=== PATIENT | female | born 2000 | race Caucasian/White ===

== ENCOUNTER 2024-07-11 14:32 | Outpatient (CLI) | payer BC, OTHER, SELFPAY ==
--- NOTE | 2024-07-11 14:45 | US_ITS ---
PROCEDURE: US TRANSVAGINAL CLINICAL INDICATION: Heavy Menstrual period bleeding COMPARISON: No exams were available for comparison FINDINGS: Transvaginal sonographic images of the pelvis were obtained. UTERUS: 8.2cm x 6.0cmx 3.8 cm anteverted with a combined endometrial thickness of 7.0 mm. A scar is seen. There are several small echogenic areas within the endometrium, lower uterine segment and cervix. LEFT OVARY: [id number] with a volume of 1.4ml. There are several small peripheral follicles. RIGHT OVARY: 2cmx [id number] with a volume of 10.7ml. There are several small peripheral follicles. There is a dominant follicle measuring 1.7 cm. Both ovaries are seen and appear normal. Doppler flow to both ovaries are seen. There is trace fluid in the cul-de-sac. IMPRESSION: 1. Anteverted uterus normal in shape and size. The endometrium is normal and measures 7 mm. 2. There are multiple small echogenic areas within the endometrium and in the cervix. Etiology of this is unclear. 3. Both ovaries are seen and appear normal. They both have multiple small peripheral follicles. The right ovary has a dominant follicle measuring 1.7 cm. 4. There is trace fluid in the cul-de-sac Dictated by: Anselmo Bower MD 07/11/2024 17:33 Anselmo Bower MD in OV 07/11/2024 17:33
== END 2024-07-11 23:59 | disposition home or self-care (01) ==
LOC: RAD 14:34
PROVIDERS: PCP Pediatrics; Visit Provider Nurse Practitioner Obstetrics & Gynecology
DX: N92.0 Excessive and frequent menstruation with regular cycle (principal)
CPT/HCPCS: 76830

== ENCOUNTER 2024-08-12 09:54 | Outpatient (CLI) | payer BC, OTHER, SELFPAY ==
[2024-08-12 10:01] VITALS: BMI 30.3
[2024-08-12 10:23] LABS: Basophils % 0.3 % (0.1-2.0); Eosinophils # 0.1 Kmm3 (0.0-0.4); Eosinophils % 1.4 % (0.1-12.0); Hematocrit 39.8 % (37.0-47.0); Hemoglobin 13.3 g/dL (12.2-16.2); Lymphocytes % 34.8 % (10-50); Mean Corpuscular HGB Conc 33.4 g/dL (31.8-35.4); Mean Corpuscular Hemoglobin 29.2 pg (27.0-31.2); Mean Corpuscular Volume 87.3 fl (81-99); Mean Platelet Volume 9.4 fl (7.4-10.4); Monocytes # 0.4 K/mm3 (0.1-1.0); Monocytes % 7.2 % (1.7-9.3); Neutrophils # 3.3 K/mm3 (1.8-7.8); Neutrophils % 56.1 % (37.0-80.0); Nucleated Red Blood Cells # 0 10^3/uL; Nucleated Red Blood Cells % 0 %; Platelet Count 310 K/mm3 (142-424); Red Blood Count 4.56 M/mm3 (4.20-5.40); Red Cell Distribution Width-SD 38.5 fL; White Blood Count 5.8 K/mm3 (4.8-10.8)
[2024-08-12 10:40] LABS: Alanine Aminotransferase 15 U/L (12-78); Albumin Level 4.3 g/dl (3.5-5.0); Albumin/Globulin Ratio 1.3 (1.1-1.8); Alkaline Phosphatase 73 U/L (38-126); Anion Gap 9.2 mEq/L (5-15); Aspartate Amino Transferase 23 U/L (14-36); Bilirubin,Total 0.3 mg/dl (0.2-1.3); Blood Urea Nitrogen 13 mg/dl (7-17); Calcium 9.3 mg/dl (8.4-10.2); Carbon Dioxide 29 mmol/L (22.0-30.0); Chloride 107 mmol/L (98-107); Creatinine Clearance Estimated 198 mL/min (50-200); Estimated Glomerular Filt Rate 125 ml/min (>60); GFR (African American) 151 ML/MIN (>60); Globulin 3.3 g/dL (1.3-3.2); Glucose 85 mg/dl (74-100); Potassium 4.2 mmoL/L (3.5-5.1); Sodium 141 mmol/L (136-145); Total Protein,Serum 7.6 g/dl (6.3-8.2)
[2024-08-12 11:36] LABS: HCG Qualitative, Serum Negative (Negative)
== END 2024-08-12 23:59 | disposition home or self-care (01) ==
LOC: PREOP 09:58
PROVIDERS: PCP Pediatrics; Visit Provider Nurse Practitioner Obstetrics & Gynecology
DX: Z01.812 Encounter for preprocedural laboratory examination (principal)
CPT/HCPCS: 80053; 84703; 85025

== ENCOUNTER 2024-08-17 08:09 | Day surgery (SDC) | payer BC, OTHER, SELFPAY ==
[2024-08-12 14:15] VITALS: BMI 30.3
--- NOTE | 2024-08-12 14:19 | SUR.PREOP ---
Ancef 1g ordered per hold queue. Pt states allergy to PCN/Omnicef. Message left w/ Carine to address w/ Dr Bower.
[2024-08-17] VITALS (11 sets, daily range): BP systolic 102–116; BP diastolic 52–77; PULSE 61–121; RESP 16–18; TEMP 36.1–38; O2SAT 97–100
[2024-08-17] MEDS: LACTATED RINGERS 1000ML 1,000 ML 25 ML IV (08:47)
--- NOTE | 2024-08-17 09:02 | EXP.ANES.CKL ---
[facility] Disclaimer: The information contained in this section may have been updated after the patient was seen, as this information can be updated by other users. Medical History Depression Anxiety Surgical History History of tonsillectomy History of History of cholecystectomy Family History Other Asthma Diabetes FHx: mental illness Heart attack Thyroid disorder Social History Smoking Status: Never smoker alcohol intake: never substance use type: denies use current occupational status: unemployed Travel in the last 8 weeks?: None Have you lived/traveled outside US in past 30 days?: No Contact w/someone who lives/traveled outside US past 30 days?: No Exposure to someone with infectious disease in past 14 days?: No Do you have a fever (greater than 100.4 F or 38 C)?: No Have you tested positive for COVID-19?: No Exposed to someone with COVID-19 in past 14 days?: No Do you have a sore throat?: No Do you have a cough?: No Do you have any weakness?: No Do you have any diarrhea?: No Are you experiencing any unusual bleeding?: No Do you have any muscle aches/pain?: No Do you have any abdominal pain?: No Are you experiencing loss of taste or smell?: No [facility] Anesthesia Checklist Patient Identification Patient Identification: Arm Band Structural Data Admitted From: Home Planned Operative Procedure/s: Laparoscopic Bilateral Salpingectomy, Hysteroscopy, D&C, Novasure Consent for Planned Operative Procedure(s) Verified: Yes Verified Documents: Surgical Consent and History and Physical NPO Status Verified Time NPO: 00:00 Additional verifications Anesthesia Reactions: No Hx Blood Transfusions: No Blood Transfusion Reaction: No Airway Assessment Mallampati Score:: Class II C-Spine Mobility Assessed: Yes TMJ Mobility Assessed: Yes Dentition: Good Dentition Neurological Assessment Level of Consciousness: Awake, Alert and Appropriate Anesthesia Plan Anesthesia Risk discussed: Yes Anesthesia Plan: Verified ASA Class: I Anesthesia Type: General
[2024-08-17] MEDS: CLINDAMYCIN PHOSPHATE/D5W 900 MG/50 ML PIGGYBACK 100 MG IV (11:11)
[2024-08-17] MEDS: ROPIVACAINE 0.5% 30ML VIAL 300 MG (11:11)
[2024-08-17] MEDS: SODIUM CHLORIDE IRRIG SOLUTION 3,000 ML 3000 ML IR (11:12)
--- NOTE | 2024-08-17 11:44 | EXP.OP.NOTE ---
Date of procedure: 08/17/24 Pre-op Diagnosis:: Desire for sterilization, menorrhagia Post-op Diagnosis:: Desire for sterilization, menorrhagia Procedure performed:: Laparoscopic bilateral salpingectomy, hysteroscopy, NovaSure ablation Surgeon:: Anselmo Bower MD AIR QUALITY MANAGER:: Christiano Rai Anesthesia: GETA Estimated blood loss (mL): 50 Clinical Note:: She is a 23-year-old lady who expresses a desire for sterilization. The risks and benefits of surgery as well as the irreversibility of bilateral salpingectomy were discussed with the patient prior to surgery. She also had extremely heavy periods and requested an endometrial ablation. Operative findings:: She had a normal-appearing pelvis. She has had previous section. There were adhesions of omentum to the anterior abdominal wall just below the umbilicus. The rest of the pelvis appeared normal. The ovaries appear normal. The tubes appeared normal. At the time a hysteroscopy the endometrium. Normal and post menstrual. The uterus sounded to 8 cm. Operative note:: She was taken to the operating room where general anesthesia was found be adequate. She was prepped and draped in normal sterile fashion in the semilithotomy position. A weighted speculum was placed in the vagina and the anterior lip of the cervix was grasped with a tenaculum. I then inserted a Nancy uterine manipulator into the cervical os. The balloon was then insufflated. I changed gloves and injected 10 cc of 0.5% ropivacaine around her umbilicus and made a small incision within the umbilicus. I inserted a Veress needle into the abdominal cavity. The peritoneal cavity was then insufflated with carbon dioxide gas to a pressure of 20 mmHg. I then inserted a 5 millimeter trocar under direct vision. I injected through and through the pubic hairline, made a small incision here and inserted an 8 mm trocar under direct vision. I identified the inferior epigastric artery on the left side, went lateral to these and injected through and through. I then placed a 5 mm trocar here under direct vision. The pelvis and upper abdomen were then inspected and the findings were as previously dictated. I grasped the right tube at the cornua and using harmonic scalpel on coagulation mode I cut through the tube. I then grasped the distal tube and using harmonic scalpel cut along the mesosalpinx. The tube was removed through 8 mm trocar site. This was similarly performed on the patient's left side. I then injected 30 cc of 0.5% ropivacaine into the pelvis. After assuring hemostasis the gas was let out of the abdomen and hemostasis was once again assured. The abdomen was then reinsufflated. The secondary trochars were removed under direct vision. The gas was let out her abdomen. The primary trocar was then removed. The 8 mm trocar site was closed deeply with 2-0 Vicryl suture followed by subcuticular 4-0 Monocryl suture. The 5 mm trocar sites were closed with subcuticular 4-0 Monocryl. Sterile dressings were applied. We then turned our attention to the ablation. A weighted speculum was placed in the vagina and the anterior lip of the cervix was grasped with a tenaculum. The cervix was then dilated to approximately 6 mm. I then inserted a hysteroscope into the uterine cavity and the findings were as previously dictated. I then sounded the uterus and determine the length of the uterus. The uterus was 8 cm in length. I then inserted the NovaSure device and determine the width of the endometrial cavity. The length of the cavity was 5.5 cm and the width was 4.1 cm this was placed into the NovaSure device. I then ran the device through its program. I further inspected the endometrial cavity and was found to be completely charred. I then injected 30 cc of 0.5% ropivacaine at the 3:00, 5:00, 7:00, and 9:00 positions of the cervix. She tolerated procedure well and was taken to the recovery room in excellent condition. All sponge, needle and instrument counts were correct. The estimated blood loss was less than 50 cc. Condition: stable Disposition: PACU Specimens:: Bilateral fallopian tubes Complications:: None
--- NOTE | 2024-08-17 11:54 | P.PNANES_ITS ---
[facility] Anesthesia Record Part I Anesthesia Record I Intake, IV Amount: 100 Hydration: Adequate Estimated blood loss (mL): 50 Urine output (mL): 0 Blood Products used (#): none Blood Pressure: 116/69 SaO2: 97 Pulse Rate: 121 Airway Patency: Patent Respiratory Rate: 16 Temperature: 97.6 F Patient is:: Drowsy and Stable
[2024-08-17] MEDS: MORPHINE 2MG/ML SYRINGE 2 MG IV ×2 (12:05→12:10)
[2024-08-17] MEDS: ONDANSETRON 4MG ODT 4 MG SL (13:10)
--- NOTE | 2024-08-17 15:05 | EXP.ANES.II ---
[facility] Anesthesia Record Part II Anesthesia Record Part II Discharge Time: 12:17 Destination: Surgical Day Care (OP Surgery) PACU nurse assessment reviewed?: Yes Patient Condition:: Good Anesthesia Complications:: None Swallowing reflex intact?: Yes Airway Patency: Patent Cyanosis?: No Blood Pressure: 105/55 SaO2: 100 Respiratory Rate: 18 Pulse Rate: 79 Temperature: 97.6 F Mental Status: Alert & Oriented Pain level:: 4 Nausea and/or vomitting:: None Intake, IV Amount: 0 Hydration: Adequate
== END 2024-08-17 13:58 | disposition home or self-care (01) ==
PROVIDERS: PCP Pediatrics; Visit Provider Nurse Practitioner Obstetrics & Gynecology
PROC: 0U5B8ZZ Destruction of Endometrium, Via Natural or Artificial Opening Endoscopic (ICD-10-PCS; CPT 58563; principal; 2024-08-17 09:45)
DX: Z30.2 Encounter for sterilization (principal); N92.0 Excessive and frequent menstruation with regular cycle
CPT/HCPCS: 58563; 58661; 96374; J3490; J0736; J1100; J2250; J2270; J2405; J3010; J7120; Q0162

== ENCOUNTER 2024-08-19 12:55 | Emergency (ER) | payer BC, OTHER, SELFPAY ==
[2024-08-19 13:07] VITALS: BP 116/81; PULSE 94; RESP 16; TEMP 36.7; O2SAT 100; BMI 30.3
[2024-08-19 13:30] LABS: Basophils % 0.3 % (0.1-2.0); Eosinophils # 0.3 Kmm3 (0.0-0.4); Eosinophils % 4.6 % (0.1-12.0); Hematocrit 40.9 % (37.0-47.0); Hemoglobin 13.7 g/dL (12.2-16.2); Immature Granulocytes # 0.01 10^3uL; Immature Granulocytes % 0.1 %; Lymphocytes # 2.6 K/mm3 (0.7-4.5); Lymphocytes % 38.6 % (10-50); Mean Corpuscular HGB Conc 33.5 g/dL (31.8-35.4); Mean Corpuscular Hemoglobin 29.8 pg (27.0-31.2); Mean Corpuscular Volume 88.9 fl (81-99); Mean Platelet Volume 9.3 fl (7.4-10.4); Monocytes # 0.4 K/mm3 (0.1-1.0); Monocytes % 6.4 % (1.7-9.3); Neutrophils # 3.4 K/mm3 (1.8-7.8); Nucleated Red Blood Cells # 0 10^3/uL; Nucleated Red Blood Cells % 0 %; Platelet Count 258 K/mm3 (142-424); Red Cell Distribution Width 12.5 % (11.5-17.5); Red Cell Distribution Width-SD 40.4 fL; White Blood Count 6.7 K/mm3 (4.8-10.8)
[2024-08-19 13:32] LABS: Albumin Level 4.3 g/dl (3.5-5.0); Chloride 106 mmol/L (98-107); Potassium 3.9 mmoL/L (3.5-5.1); Sodium 140 mmol/L (136-145)
[2024-08-19 13:35] LABS: Alanine Aminotransferase 18 U/L (12-78); Albumin/Globulin Ratio 1.5 (1.1-1.8); Alkaline Phosphatase 68 U/L (38-126); Anion Gap 9.9 mEq/L (5-15); Aspartate Amino Transferase 25 U/L (14-36); Bilirubin,Total 0.3 mg/dl (0.2-1.3); Blood Urea Nitrogen 8 mg/dl (7-17); Carbon Dioxide 28 mmol/L (22.0-30.0); Creatinine Clearance Estimated 170 mL/min (50-200); Estimated Glomerular Filt Rate 105 ml/min (>60); GFR (African American) 127 ML/MIN (>60); Globulin 2.8 g/dL (1.3-3.2); Total Protein,Serum 7.1 g/dl (6.3-8.2)
[2024-08-19 13:36] LABS: Calcium 8.9 mg/dl (8.4-10.2); Glucose 95 mg/dl (74-100)
[2024-08-19 13:41] LABS: C-Reactive Protein 3.3 mg/L (0-4)
[2024-08-19 13:42] LABS: Microscopic, Urine URINE MICROSCOPIC (MICROSCOPIC)
[2024-08-19 13:46] LABS: Coronavirus 19, PCR Not Detected (NotDetected); Influenza A, PCR Not Detected (NotDetected); Influenza B, PCR Not Detected (NotDetected)
[2024-08-19 13:46] LABS: Appearance,Urine CLEAR (Clear); Bilirubin,Urine Negative (Negative); Blood, Urine 2+ (Negative); Color,Urine YELLOW (Yellow); Glucose,Urine (UA) Negative (Negative); Ketones,Urine Negative (Negative); Leukocyte Esterase,Urine Negative (Negative); Nitrate,Urine Negative (Negative); Protein,Urine Negative (Negative); Specific Gravity, Urine <= 1.005 (1.005-1.030); Urobilinogen,Urine 0.2 EU/dl (0.2)
[2024-08-19 13:54] LABS: Erythrocyte Sedimentation Rate 10 mm/hr (0-20)
[2024-08-19 13:58] LABS: RBC,Urine Occasional #/hpf (0-3)
--- NOTE | 2024-08-19 13:58 | ED_ITS ---
Discharge Plan Disposition Patient Disposition: Home, Self-Care Condition: Good Prescriptions Prescriptions: New simethicone 125 mg tablet,chewable 125 mg PO DAILY Qty: 14 0RF No Action elagolix 150 mg tablet 150 mg PO DAILY Qty: 30 2RF oxycodone-acetaminophen 5-325 mg tablet 1 tab PO Q6H PRN (Reason: pain) Qty: 14 0RF Referrals Follow up/Referrals: Gentry Christian [Primary Care Provider] - See instructions Anselmo Bower MD [Staff Physician] - See instructions Activity Restrictions/Add. Instructions Additional Instructions/Restrictions: You were evaluated in the emergency department today. 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 Follow-up closely with OB. Expected postoperative pain, including the gas pain referred to your shoulder will last for several days. Return to the emergency department for new or worsening symptoms. Clinical Impressions Clinical Impression: Postoperative abdominal pain Stand Alone Forms Stand Alone Forms: Work/School Release Instructions Patient Instructions: DI for Acute Abdominal Pain, DI for Laparoscopic Salpingectomy Print Language Print Language: Spanish Discharge ED Provider: Zara Carter General Adult HPI General Chief complaint: Abdominal Pain Stated complaint: Surg. 08/17/24, abd pain, cold, 2 incisions bleeding Time Seen by Provider: 08/19/24 13:02 Mode of Arrival: Ambulatory Source of Information: Patient Description of Symptoms (Recalled from ER Triage Doc. by RN): Patient reports having surgery with Dr. Bower two days ago. States she called and spoke with her nurse and was told to come to the ER. Complaint of lower abdomen pain, nausea, weakness and cold chills. History of Present Illness HPI narrative: This patient is a 23-year-old female with history of salpingectomy on Thursday presented to the emergency department for evaluation with concern for abdominal pain, chills, general weakness, nausea, and bleeding from her incisions. She notes that this started overnight last night. She states that she soaked through her bandages that have been on for 48 hours, prompting the need to change them today, but current bandages are clean. No true fever, no cough, congestion, shortness of breath, vomiting, changes bowel movements, or urinary symptoms she states she was advised by gynecology to come here and that she would be seen by them in the emergency department. Related Data Previous Rx's ?Medication ?Instructions ?Recorded elagolix 150 mg tablet 150 mg PO DAILY #30 tabs 07/15/24 oxycodone-acetaminophen 5 mg-325 1 tab PO Q6H PRN pain #14 tabs 08/17/24 mg tablet simethicone 125 mg chewable tablet 125 mg PO DAILY #14 tabs 08/19/24 Allergies Allergy/AdvReac Type Severity Reaction Status Date / Time cefdinir (From Omnicef) Allergy Severe Rash Verified 08/17/24 08:38 Penicillins Allergy Severe Vomiting Verified 08/17/24 08:38 sulfamethoxazole (From Allergy Severe Other Verified 08/17/24 08:38 Bactrim) trimethoprim (From Bactrim) Allergy Severe Other Verified 08/17/24 08:38 [facility] Disclaimer: The information contained in this section may have been updated after the patient was seen, as this information can be updated by other users. Medical History Depression Anxiety Surgical History History of tonsillectomy History of History of cholecystectomy Family History Other Asthma Diabetes FHx: mental illness Heart attack Thyroid disorder Social History Smoking Status: Never smoker alcohol intake: never substance use type: denies use current occupational status: unemployed Travel in the last 8 weeks?: None Have you lived/traveled outside US in past 30 days?: No Contact w/someone who lives/traveled outside US past 30 days?: No Exposure to someone with infectious disease in past 14 days?: No Do you have a fever (greater than 100.4 F or 38 C)?: No Have you tested positive for COVID-19?: No Exposed to someone with COVID-19 in past 14 days?: No Do you have a sore throat?: No Do you have a cough?: No Do you have any weakness?: No Do you have any diarrhea?: No Are you experiencing any unusual bleeding?: No Do you have any muscle aches/pain?: No Do you have any abdominal pain?: Yes Are you experiencing loss of taste or smell?: No ROS Obtained: Yes All systems reviewed & no additional complaints except as documented Physical Exam General General appearance: alert and in no apparent distress Head Head exam: atraumatic and normocephalic Eye Eye exam: Present normal appearance, PERRL and EOMI ENT ENT exam: Present normal exam, normal oropharynx, mucous membranes moist and normal external ear exam Neck Neck exam: Present normal inspection, full ROM and trachea midline; Absent tenderness Chest Chest inspection: Present normal inspection and symmetric chest wall rise; Absent tenderness Respiratory Respiratory exam: Present normal lung sounds bilaterally; Absent respiratory distress, wheezes, stridor or accessory muscle use Cardiovascular Cardiovascular exam: Present regular rate and normal rhythm Abdominal Exam Abdominal exam: Present soft and tenderness (Appropriate postoperative tenderness with nothing out of proportion); Absent distention or guarding Comment: Incisions are clean/dry/intact with no surrounding redness, no palpable fluctuance Extremities Exam Extremities exam: Present normal inspection, full ROM and normal capillary refill; Absent tenderness or edema Back Exam Back exam: Present normal inspection and full ROM; Absent tenderness Neurological Exam Neurological exam: Present alert, oriented X3, CN II-XII intact and normal gait; Absent motor sensory deficit Psychiatric Psychiatric exam: Present normal affect and normal mood Skin Skin exam: Present warm and dry Medical Decision Making Medical Records Medical records reviewed: Yes I reviewed the patient's medical records. Screening: Per USPSTF and CDC recommendations, given the prevalence of disease in our region, it is our hospital?s policy to screen for HIV and viral Hepatitis for all patients aged 18 and over and those with ongoing risk factors. Kit Inquiry Pt receiving controlled substance: No Vital Signs: 08/19/24 13:07 08/19/24 14:01 08/19/24 14:27 Temperature 98.0 F 98.0 F Temperature Source Oral Oral Pulse Rate 75 78 Pulse Rate [Radial] 94 H Respiratory Rate 16 18 Blood Pressure 110/65 112/68 Blood Pressure [Right Arm] 116/81 Blood Pressure Mean [Right Arm] 92 Blood Pressure Source Automatic Cuff Blood Pressure Source [Right Arm] Automatic Cuff Blood Pressure Position Blood Pressure Position [Right Arm] Sitting 02 Sat by Pulse Oximetry 100 98 Oxygen Delivery Method Room Air Room Air 08/19/24 14:32 Temperature 98.0 F Temperature Source Oral Pulse Rate 75 Pulse Rate [Radial] Respiratory Rate 18 Blood Pressure 110/65 Blood Pressure [Right Arm] Blood Pressure Mean [Right Arm] Blood Pressure Source Automatic Cuff Blood Pressure Source [Right Arm] Blood Pressure Position Sitting Blood Pressure Position [Right Arm] 02 Sat by Pulse Oximetry Oxygen Delivery Method Room Air Lab Data Lab results reviewed: Yes I reviewed the patient's lab results. Lab Results 08/19/24 13:13: WBC 6.7, RBC 4.60, Hgb 13.7, Hct 40.9, MCV 88.9, MCH 29.8, MCHC 33.5, RDW 12.5, Plt Count 258, MPV 9.3, Neut % (Auto) 50.0, Lymph % (Auto) 38.6, Hill % (Auto) 6.4, Eos % (Auto) 4.6, Baso % (Auto) 0.3, Neut # (Auto) 3.4, Lymph # (Auto) 2.6, Hill # (Auto) 0.4, Eos # (Auto) 0.3, Baso # (Auto) 0.0, ESR 10, Sodium 140, Potassium 3.9, Chloride 106, Carbon Dioxide 28, Anion Gap 9.9, BUN 8, Creatinine 0.70, Estimated Creat Clear 170, Estimated GFR 105, Est GFR ( Amer) 127, Glucose 95, Calcium 8.9, Total Bilirubin 0.3, AST 25, ALT 18, Alkaline Phosphatase 68, C-Reactive Protein 3.3, Total Protein 7.1, Albumin 4.3, Globulin 2.8, Albumin/Globulin Ratio 1.5, HCV Ab THELMA w/Rflx PCR Qn Negative, HIV Ag/Ab Combo Qual Negative 08/19/24 13:36: Urine Color Yellow, Urine Appearance Clear, Urine pH 6.0, Ur Specific [place] <= 1.005, Urine Protein Negative, Urine Glucose (UA) Negative, Urine Ketones Negative, Urine Blood 2+ A, Urine Nitrate Negative, Urine Bilirubin Negative, Urine Urobilinogen 0.2, Ur Leukocyte Esterase Negative, Urine RBC Occasional, Urine WBC None, Ur Squamous Epith Cells None, Urine Bacteria None 08/19/24 13:40: SARS-CoV-2 (PCR) Not detected, Influenza A Untype (PCR) Not detected, Influenza Type B (PCR) Not detected 08/19/24 13:13 08/19/24 13:13 Orders (Tests/Meds): ORDERS Category Date Time Status CRP [C-Reactive Protein] Stat Lab 08/19/24 13:13 Completed Complete Blood Count Auto Diff Stat Lab 08/19/24 13:13 Completed Comprehensive Metabolic Panel Stat Lab 08/19/24 13:13 Completed ESR [Erythrocyte Sedimentation Rate] Stat Lab 08/19/24 13:13 Completed HIV Combo Stat Lab 08/19/24 13:13 Completed Hepatitis C Ab Qual. W/ RFX Stat Lab 08/19/24 13:13 Completed Rapid PCR Covid and Flu A/B Stat Lab 08/19/24 13:40 Completed UA [Urinalysis and Microscopic] Stat Lab 08/19/24 13:36 Completed Medical Decision Narrative: In summary, this patient is a 23-year-old presenting to the Emergency Department for evaluation of abdominal pain, chills, weakness, and bleeding from her incisions after salpingectomy 2 days ago. Differential diagnoses considered include but are not limited to normal postoperative pain, normal serosanguineous drainage, postoperative infection, wound dehiscence, viral syndrome. Ruling out the most morbid conditions drove assessment. I reviewed patient's past medical records and noted complicated procedure 2 days ago as detailed in HPI. On exam, the patient is lying in bed in no acute distress. Abdomen is appropriately tender in the postoperative setting and incisions are clean/dry/intact. Vitals are normal on cardiac telemetry and she is afebrile/nontoxic-appearing. Workup included CBC, CMP, urinalysis. Labs overall are very reassuring with no leukocytosis, normal hemoglobin, nothing actionable on chemistry. Based on reassuring history and exam, I feel patient is unlikely to have acute postoperative infection or other emergent concerns. 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 I did call and have an interactive discussion with Dr. Duron who advised she would come by and see the patient. She came by and recommended belly binder as well as discharge with simethicone, as she feels most of the pain is related to the gas from insufflation in the setting of laparoscopic surgery. Patient was discharged with instructions for close follow-up with OB Critical Care Critical Care Time Critical Care Time: No
[2024-08-19 14:01] VITALS: BP 110/65; PULSE 75; O2SAT 98
[2024-08-19 14:26] LABS: HIV Combo NEGATIVE (Negative)
[2024-08-19 14:27] VITALS: BP 112/68; PULSE 78; RESP 18; TEMP 36.7; O2SAT 98
[2024-08-19 14:32] VITALS: BP 110/65; PULSE 75; RESP 18; TEMP 36.7; O2SAT 98
[2024-08-19 14:34] LABS: Hepatitis C Ab Qual. W/ RFX NEGATIVE (Negative)
== END 2024-08-19 14:33 | disposition home or self-care (01) ==
PROVIDERS: Emergency Provider Emergency Medicine; PCP Pediatrics
DX: R10.30 Lower abdominal pain, unspecified (principal); G89.18 Other acute postprocedural pain; R11.0 Nausea; Z90.722 Acquired absence of ovaries, bilateral; Z11.59 Encounter for screening for other viral diseases; Z11.4 Encounter for screening for human immunodeficiency virus [HIV]
CPT/HCPCS: 80053; 81001; 85025; 85651; 86140; 86803; 87389; 87636; 99284

== ENCOUNTER 2025-01-08 14:06 | Emergency (ER) | payer BC, OTHER, SELFPAY ==
--- OUTSIDE RECORDS SUMMARY | 2024-11-22 10:45 | XMS_ITS | Encounter Summary ---
Author Organization [place] [address] Care Team Providers Care Precision Lens Generator Name Role Phone Gentry Christian MD Primary Care Provider [phone] Reason for Referral * Ultrasound (Routine) - Pending Review Specialty Diagnoses / Procedures Referred By Ana louise Referred To Contact Radiology Diagnoses Thyroid mass Procedures US THYROID Komal Barcenas APRN [address] [place] [address] Phone: tel: fax: Referral ID Status Reason Start Date Expiration Date V isits Requested Visits Authorized [id number] Pending Review 11/22/2024 11/22/2025 1 1 Reason for Visit * Reason Comments Otalgia right Encounter Details Date Type Department Care Team (Late st Contact Info) Description 11/22/2024 10:45 AM EDT Office Visit BHAVNA MORAN [address] [place] [id number] Komal Barcenas APRN [address] [place] [address] Middle ear effusion, right (Primary Dx); Thyroid mass Social History Tobacco Use Types Packs/Day Years Used Date Smoking Tobacco: Never Smokeless Tobacco: Never Alcohol Use Standard Drinks/Week Comments No 0 (1 standard drink = 0.6 oz pur e alcohol) Overall Financial Resource Strain (CARDIA) Answe r Date Recorded How hard is it for you to pa y for the very basics like food, housing, medical care, and heating? Not hard at all 05/07/2021 PHQ-2 Answer Date Recorded PHQ-2 Total Score 0 2023 Hunger Vital Sign Answer Date Recorded Within the past 12 months, y ou worried that your food would run out before you got the money to buy more. Never true 05/07/19 22 Within the past 12 months, t he food you bought just didn't last and you didn't have money to get more. Never true 05/07/2021 PRAPARE - Transportation Answer Date Re corded In the past 12 months, has l ack of transportation kept you from medical appointments or from getting medications? No 04/14 In the past 12 months, has l ack of transportation kept you from meetings, work, or from getting things needed for daily living? No 05/07/2021 Sexually Active Control Partners Comments Not Currently Male Comments No Sex and Gender Information Value Date Recorded Sex Assigned at Not on file Legal Sex Female 5:08 PM EDT Gender Identity Not on file Sexual Orientation Not on file documented as of this encounter Last Filed Vital Signs Vital Sign Reading Time Taken Comments Blood Pressure 124/73 11/22/2024 10:36 AM EDT Pulse 94 11/22/2024 10:36 AM EDT Temperature 36.2 C (97.1 F) 11/22/2024 10:36 AM EDT Respiratory Rate 18 11/22/2024 10:36 AM EDT Oxygen Saturation 99% 11/22/2024 10:36 AM EDT Inhaled Oxygen Concentration - - Weight 82.6 kg (182 lb) 11/22/2024 10:36 AM EDT Height - - Body Mass Index 29.38 12/23/2023 10:47 AM EDT documented in this encounter Functional Status * Is the person deaf or does he/she have serious difficulty hearing? Answer Date of Assessment Author No 11/12/2023 4:06 PM EDT Ambar [place] RN * Is the person blind or does he/she have serious difficulty seeing even when wearing glasses? Answer Date of Assessment Author No 11/12/2023 4:06 PM EDAmbar Steward RN * Does this person have serious difficulty walking or climbing stairs? Answer Date of Assessment Author No 11/12/2023 4:06 PM EDAmbar Steward RN * Does this person have difficulty dressing or bathing? Answer Date of Assessment Author No 11/12/2023 4:06 PM EDAmbar Steward RN * Because of a physical, mental or emotional condition, does this person have difficulty doing errands alone such as visiting a doctor's office or shopping? Answer Date of Assessment Author No 11/12/2023 4:06 PM Ambar Barragan RN documented as of this encounter Mental Status * Because of a physical, mental or emotional condition, does this person have serious difficulty concentrating, remembering or making decisions? Answer Entry Date Author No 11/12/2023 4:06 PM Ambar Barragan RN documented in this encounter Ordered Prescriptions Prescription Sig Dispense Quantity Refills Last Filled Start Date End Date fluticasone propionate (FLONASE) 50 mcg/actuation Nasl [place], SuspensionIndicati ons:Middle ear effusion, right 1 [place] by Nasal route daily. 1 Each 2 11/22/2024 cetirizine (ZYRTEC) 10 mg Oral TabletIndications: Middle ear effusion, right Take 1 Tablet by mouth daily. 30 Tablet 2 11/22/2024 predniSONE (DELTASONE) 20 mg Oral TabletIndications: Middle ear effusion, right Take 1 Tablet by mouth daily for 5 days. 5 Tablet 11/22/2024 11/27/2024 documented in this encounter Progress Notes * Komal Barcenas APRN - 11/22/2024 10:45 AM EDT Assessment & Plan Middle ear effusion, right -meds as directed -warm compresses for discomfort -follow-up as needed Orders: predniSONE (DELTASONE) 20 mg Oral Tablet; Take 1 Tablet by mouth daily for 5 days. cetirizine (ZYRTEC) 10 mg Oral Tablet; Take 1 Tablet by mouth daily. fluticasone propionate (FLONASE) 50 mcg/actuation Nasl [place], Suspension; 1 [place] by Nasal route daily. Thyroid mass -incidental finding -recommend followup ultrasound. Orders: US THYROID; Future Progress Note: Vitals: 11/22/24 1036 BP: 124/73 Pulse: 94 Resp: 18 Temp: 97.1 ??F (36.2 ??C) TempSrc: Forehead SpO2: 99% Weight: 182 lb (82.6 kg) Body mass index is 29.38 kg/m??. SUBJECTIVE: Chief Complaint Patient presents with Otalgia right HPI: Right ear pain, nasal congestion, drainage. Review of Systems Constitutional: Negative for fever. HENT: Positive for ear pain and postnasal drip. Negative for congestion. Respiratory: Negative for cough, shortness of breath and wheezing. Cardiovascular: Negative for chest pain, palpitations and leg swelling. Allergic/Immunologic: Positive for environmental allergies. Hematological: Negative for adenopathy. OBJECTIVE: Physical Exam Constitutional: Appearance: Normal appearance. HENT: Head: Normocephalic and atraumatic. Right Ear: A middle ear effusion is present. Tympanic membrane is injected. Left Ear: A middle ear effusion is present. Neck: Thyroid: Thyroid mass (right lobe) present. Cardiovascular: Rate and Rhythm: Normal rate and regular rhythm. Heart sounds: Normal heart sounds. Pulmonary: Effort: Pulmonary effort is normal. Breath sounds: Normal breath sounds. Neurological: Mental Status: She is alert and oriented to person, place, and time. Psychiatric: Mood and Affect: Mood normal. Thought Content: Thought content normal. documented in this encounter Plan of Treatment Not on file documented as of this encounter Goals Goal Patient Goal Type Associated Problems Recent Progress Patient-Stated? Author Maintain a healthy diet, exercise regularly and maintain an ideal body weight General No Lluvia Patel, ASHLEY documented as of this encounter Results * US THYROID (11/24/2024 10:42 AM EDT) Anatomical Region Laterality Modality Neck Ultrasound 11/24/2024 10:4 2 AM EDT Impressions 11/24/2024 12:05 PM EDT Left-sided thyroid nodule. Recommend one-year follow-up ultrasound. Diffusely heterogeneous thyroid gland may represent chronic thyroiditis. - Note: Radiology results need to be interpreted within a comprehensive clinical context. If you have questions about the radiology report, please contact the office of the ordering clinician. Narrative 11/24/2024 12:05 PM EDT THYROID SONOGRAPHY, 11/24/2024 10:42 AM CLINICAL HISTORY: Thyroid nodule(s). E07.9-Disorder of thyroid, [id number]. COMPARISON: None. PROCEDURE COMMENTS: Sonographic evaluation of the thyroid gland per protocol. Images and technologist notes reviewed. METHODOLOGY: Up to 4 nodules with the highest scores are reported using the Thyroid Imaging Reporting and Data System (TI-RADS). This system promotes a common lexicon for thyroid nodule description, focusing on relevant imaging characteristics to allow risk stratification of individual nodules and makes recommendations for biopsy or sonographic follow-up based on the estimated risk profile. Caveat: Deviation from the below TI-RADS management recommendations may be appropriate based on individual patient variables and/or differing society criteria. Right lobe measures: 5.7 x 1.7 x 2.1 cm. Left lobe measures: 4.5 x 1.6 x 1.8 cm. RIGHT-side lymph nodes: No suspicious lymph nodes. LEFT-side lymph nodes: No suspicious lymph nodes. Nodule #1: Location: Left Size: 1.2 x 0.7 x 0.7 cm Prior measurement None. Composition: Solid or almost completely solid. 2 points. Echogenicity: Hypoechoic (equal to or more echogenic than strap muscles.) 2 points. Shape: Not taller than wide. 0 points. Margin: Smooth. 0 points. Echogenic foci: None or large comet-tails. 0 points. Total points: 4-6 points. TI-RADS category 4. FNA if 1.5 cm or greater. Follow in 1, 2, 3, and 5 yrs if 1-1.4cm. Diffusely heterogeneous thyroid gland. Procedure Note Cristobal Escobar MD - 11/24/2024 THYROID SONOGRAPHY, 11/24/2024 10:42 AM CLINICAL HISTORY: Thyroid nodule(s). E07.9-Disorder of thyroid, [id number]. COMPARISON: None. PROCEDURE COMMENTS: Sonographic evaluation of the thyroid gland perprotocol. Images and technologist notes reviewed. METHODOLOGY: Up to 4 nodules with the highest scores are reported usingthe Thyroid Imaging Reporting and Data System (TI-RADS). This system promotesa common lexicon for thyroid nodule description, focusing on relevantimaging characteristics to allow risk stratification of individual nodules andmakes recommendations for biopsy or sonographic follow-up based on the estimatedrisk profile. Caveat: Deviation from the below TI-RADS management recommendations maybe appropriate based on individual patient variables and/or differingsociety criteria. Right lobe measures: 5.7 x 1.7 x 2.1 cm. Left lobe measures: 4.5 x 1.6 x 1.8 cm. RIGHT-side lymph nodes: No suspicious lymph nodes. LEFT-side lymph nodes: No suspicious lymph nodes. Nodule #1: Location: Left Size: 1.2 x 0.7 x 0.7 cm Prior measurement None. Composition: Solid or almost completely solid. 2 points. Echogenicity: Hypoechoic (equal to or more echogenic than strap muscles.)2 points. Shape: Not taller than wide. 0 points. Margin: Smooth. 0 points. Echogenic foci: None or large comet-tails. 0 points. Total points: 4-6 points. TI-RADS category 4. FNA if 1.5 cm or greater.Follow in 1, 2, 3, and 5 yrs if 1-1.4cm. Diffusely heterogeneous thyroid gland. IMPRESSION: Left-sided thyroid nodule. Recommend one-year follow-up ultrasound. Diffusely heterogeneous thyroid gland may represent chronic thyroiditis. - Note: Radiology results need to be interpreted within a comprehensiveclinical context. If you have questions about the radiology report, please contactthe office of the ordering clinician. Komal Barcenas VINYL CUTTER IMG US ORDERABLES Final Res ult documented in this encounter Visit Diagnoses Diagnosis Middle ear effusion, right- Primary Thyroid mass Unspecified disorder of thyroid Thyroid mass Unspecified disorder of thyroid documented in this encounter Care Teams Precision Lens Generator Relationship Specialty Start Date End Date Gentry Christian MD [address] [place] [id number] PCP - General 06/13/09 documented as of this encounter
--- OUTSIDE RECORDS SUMMARY | 2024-11-24 10:16 | XMS_ITS | Encounter Summary ---
Author Organization [place] [address] Care Team Providers Care Glass Artist Name Role Phone Gentry Christian MD Primary Care Provider [phone] Reason for Referral * Ultrasound (Routine) - Pending Review Specialty Diagnoses / Procedures Referred By Contac t Referred To Contact Radiology Diagnoses Thyroid mass Procedures US THYROID Komal Barcenas APRN [address] [place] [address] Phone: tel: fax: Referral ID Status Reason Start Date Expiration Date V isits Requested Visits Authorized [id number] Pending Review 11/22/2024 11/22/2025 1 1 Reason for Visit * Ultrasound (Routine) - Pending Review Specialty Diagnoses / Procedures Referred By Ana louise Referred To Contact Radiology Diagnoses Thyroid mass Procedures US THYROID Komal Barcenas APRN [address] [place] [address] Phone: tel: fax: Referral ID Status Reason Start Date Expiration Date V isits Requested Visits Authorized [id number] Pending Review 11/22/2024 11/22/2025 1 1 Encounter Details Date Type Department Care Team (Latest Contact Info) Description 11/24/2024 10:16 AM EDT - 11/24/2024 11:59 PM EDT Hospital Encounter [facility] Ultrasound [address] [place] [address] Komal Barcenas APRN [address] [place] [address] Thyroid mass Discharge Disposition: Home or Self Care Social History Tobacco Use Types Packs/Day Years [...] on file documented as of this encounter Functional Status * Is the person deaf or does he/she have serious difficulty hearing? Answer Date of Assessment Author No 11/12/2023 4:06 PM EDT Ambar [place] RN * Is the person blind or does he/she have serious difficulty seeing even when wearing glasses? Answer Date of Assessment Author No 11/12/2023 4:06 PM EDT Ambar [place] RN * Does this person have serious difficulty walking or climbing stairs? Answer Date of Assessment Author No 11/12/2023 4:06 PM EDT Ambar Parks RN * Does this person have difficulty dressing or bathing? Answer Date of Assessment Author No 11/12/2023 4:06 PM EDT Ambar Parks RN * Because of a physical, mental or emotional condition, does this person have difficulty doing errands alone such as visiting a doctor's office or shopping? Answer Date of Assessment Author No 11/12/2023 4:06 PM EDT Ambar Parks RN documented as of this encounter Mental Status * Because of a physical, mental or emotional condition, does this person have serious difficulty concentrating, remembering or making decisions? Answer Entry Date Author No 11/12/2023 4:06 PM EDT Ambar [place] RN documented in this encounter Medications at Time of Discharge cetirizine (ZYRTEC) 10 mg Oral TabletIndications :Middle ear effusion, right Take 1 Tablet by mouth daily. 30 Tablet 2 11/22/2024 fluticasone propionate (FLONASE) 50 mcg/actuation Nasl [place], SuspensionIndicat ions:Middle ear effusion, right 1 [place] by Nasal route daily. 1 Each 2 11/22/2024 predniSONE (DELTASONE) 20 mg Oral TabletIndications :Middle ear effusion, right Take 1 Tablet by mouth daily for 5 days. 5 Tablet 11/22/2024 11/27/2024 documented as of this encounter Discharge Disposition Disposition Code Departure Means Destination Home or Self Care documented in this encounter Plan of Treatment Not on file documented as of this encounter Goals Goal Patient Goal Type Associated Problems Recent Progress Patient-Stated? Author Maintain a healthy diet, exercise regularly and maintain an ideal body weight General No Lluvia Patel CCMA documented as of this encounter Procedures Procedure Name Priority Date/Time Associated Diagnosis Comments US THYROID Routine 11/24/2024 10:42 AM EDT Thyroid mass documented in this encounter Results * US THYROID (11/24/2024 [...] CLINICAL HISTORY: Thyroid nodule(s). E07.9-Disorder of thyroid, [id number]. COMPARISON: None. PROCEDURE COMMENTS: Sonographic evaluation of [...] CLINICAL HISTORY: Thyroid nodule(s). E07.9-Disorder of thyroid, [id number]. COMPARISON: None. PROCEDURE COMMENTS: Sonographic evaluation of [...] please contactthe office of the ordering clinician. us Komal Barcenas TREE SPECIALIST IMG US ORDERABLES Final Res ult documented in this encounter Visit Diagnoses Diagnosis Thyroid mass Unspecified disorder of thyroid documented in this encounter Care Teams Glass Artist Relationship Specialty Start Date End Date Gentry Christian [place] [address] [place] [id number] PCP - General 06/13/09 documented as of this encounter
--- OUTSIDE RECORDS SUMMARY | 2024-11-29 14:15 | XMS_ITS | Encounter Summary ---
Author Organization [place] [address] Care Team Providers Care Net [employer] Architect Name Role Phone Gentry Christian MD Primary Care Provider [phone] Reason for Visit * Reason Comments Annual Exam Encounter Details Date Type Department Care Team (Latest Contact Info) Description 11/29/2024 2:15 PM EDT Office Visit [facility] [address] [place] [address] Komal Barcenas APRN [address] [place], [place] [id number] Annual physical exam (Primary Dx); Thyroid with heterogeneous echotexture determined by ultrasound; Thyroid nodule; Lipid screening; BMI 29.0-29.9,adult Social History Tobacco Use Types Packs/Day Years [...] Answer Date Recorded PHQ-2 Total Score 0 11/29/2024 Hunger Vital Sign Answer Date Recorded Within [...] Sign Reading Time Taken Comments Blood Pressure 121/75 11/29/2024 2:10 PM EDT Pulse 88 11/29/2024 2:10 PM EDT Temperature 36.4 C (97.5 F) 11/29/2024 2:10 PM EDT Respiratory Rate 18 11/29/2024 2:10 PM EDT Oxygen Saturation 98% 11/29/2024 2:10 PM EDT Inhaled Oxygen Concentration - - Weight 82.6 kg (182 lb) 11/29/2024 2:10 PM EDT Height 167.6 cm (5' 6 ) 11/29/2024 2:10 PM EDT Body Mass Index 29.38 11/29/2024 2:10 PM EDT documented in this encounter Functional Status * Cognitive and Functional Status Question Answer Date of Assessment Author Is the person deaf or does he/she have serious difficulty hearing? No 11/29/2024 2:10 PM EDT Arlin Adhikari CCMA Is the person blind or does he/she have serious difficulty seeing even when wearing glasses? No 11/29/2024 2:10 PM EDT Arlin Adhikari CCMA Does this person have seriou s difficulty walking or climbing stairs? No 11/29/2024 2:10 PM EDT Arlin Adhikari CCMA Does this person have difficulty dressing or bathing? No 11/29/2024 2:10 PM EDT Arlin Adhikari CCMA * Is the person deaf or does he/she have serious difficulty hearing? Answer Date of Assessment Author No 11/29/2024 2:10 PM EDT Cornelia Adhikari CCMA * Is the person blind or does he/she have serious difficulty seeing even when wearing glasses? Answer Date of Assessment Author No 11/29/2024 2:10 PM EDT Cornelia Adhikari CCMA * Does this person have serious difficulty walking or climbing stairs? Answer Date of Assessment Author No 11/29/2024 2:10 PM EDT Cornelia Adhikari CCMA * Does this person have difficulty dressing or bathing? Answer Date of Assessment Author No 11/29/2024 2:10 PM EDT Cornelia Adhikari CCMA * Because of a physical, mental or emotional condition, does this person have difficulty doing errands alone such as visiting a doctor's office or shopping? Answer Date of Assessment Author No 11/29/2024 2:10 PM EDT Cornelia Adhikari CCMA * PHQ-9 Total Score Answer Date of Assessment Author 0 11/29/2024 2:10 PM EDT Cornelia Adhikari CCMA * Question Answer Date of Assessment Author Little interest or pleasure in doing things 0 11/29/2024 2:10 PM EDT Arlin Adhikari CCMA Feeling down, depressed, or hopeless 0 11/29/2024 2:10 PM EDT Arlin Adhikari CCMA PHQ-2 Total Score 0 11/29/2024 2:10 PM EDT Arlin Adhikari CCMA * PHQ-2 Total Score Answer Date of Assessment Author 0 11/29/2024 2:10 PM EDT Cornelia Adhikari CCMA * Question Answer Date of Assessment Author Feeling Nervous, Anxious, or on Edge 0 11/29/2024 2:10 PM EDT Arlin Adhikari CCMA Not Being Able to Stop or Control Worrying 0 11/29/2024 2:10 PM EDT Arlin Adhikari CCMA Worrying too Much About Different Things 0 11/29/2024 2:10 PM EDT Arlin Adhikari CCMA Trouble Relaxing 0 11/29/2024 2:10 PM EDT W Arlin williamson CCMA Being so Restless That it is Hard to Sit Still 0 11/29/2024 2:10 PM EDT Arlin Adhikari CCMA Becoming Easily Annoyed or Irritable 0 11/29/2024 2:10 PM EDT Arlin Adhikari CCMA Feeling Afraid as if Something Awful Might Happen 0 11/29/2024 2:10 PM EDT Arlin Adhikari CCMA BAM-7 Total Score 0 11/29/2024 2:10 PM EDT Arlin Adhikari CCMA documented as of this encounter Mental Status * Cognitive and Functional Status Question Answer Entry Date Author Because of a physical, menta l or emotional condition, does this person have difficulty doing errands alone such as visiting a doctor's office or shopping? No 11/29/2024 2:10 PM EDT Arlin Adhikari CCMA Because of a physical, menta l or emotional condition, does this person have serious difficulty concentrating, remembering or making decisions? No 11/29/2024 2:10 PM EDT Arlin Adhikari CCMA * Because of a physical, mental or emotional condition, does this person have serious difficulty concentrating, remembering or making decisions? Answer Entry Date Author No 11/29/2024 2:10 PM EDT Cornelia Adhikari CCMA documented in this encounter Progress Notes * Komal Barcenas APRN - 11/29/2024 2:15 PM EDTAssociated Problem(s): Thyroid nodule Repeat ultrasound 11/2025 Orders: TSH REFLEX TO FT4; Future * Komal Barcenas APRN - 11/29/2024 2:15 PM EDT Assessment & Plan Annual physical exam Orders: CBC WITH DIFF; Future COMPREHENSIVE METABOLIC PANEL; Future Thyroid with heterogeneous echotexture determined by ultrasound Seen on ultrasound Get labs and followup accordingly Orders: TSH REFLEX TO FT4; Future T3 FREE; Future THYROID PEROXIDASE (TPO) ANTIBODY; Future Thyroid nodule Repeat ultrasound 11/2025 Orders: TSH REFLEX TO FT4; Future Lipid screening Orders: LIPID SCREEN; Future BMI 29.0-29.9,adult Diet/exercise. Progress Note: Vitals: 11/29/24 1410 BP: 121/75 Pulse: 88 Resp: 18 Temp: 97.5 ??F (36.4 ??C) TempSrc: Forehead SpO2: 98% Weight: 182 lb (82.6 kg) Height: 5' 6 (1.676 m) Body mass index is 29.38 kg/m??. SUBJECTIVE: Chief Complaint Patient presents with Annual Exam HPI: Well Adult: Subjective Ms. Kyle is a 24 y.o. female here for an annual wellness visit. Diet: balanced Exercise: daily activities Activities of Daily Living: Functional Level: Self-care ADL Limitations: none Social Interaction Screen: Do you have concerns about issues that may impact social interaction such as developmental or behavioral/mental health conditions? no Health Maintenance Due Topic Date Due Annual Wellness Exam Never done Health Maintenance Topic Date Due Annual Wellness Exam Never done Meningococcal B Vaccine (1 of 2 - Standard) 11/30/2024 (Originally 2017) COVID-19 Vaccine (1 - 2023- season) 2024 (Originally 12/13/2023) Influenza Vaccine (1) 12/12/2024 Cervical Cancer Screening 05/13/2026 DTaP/TDaP/Td (7 - Td or Tdap) 02/16/2032 Hepatitis B Vaccine Completed HPV Addressed Pneumococcal Vaccine 0-49 Aged Out Chlamydia Screening Discontinued Immunization History Administered Date(s) Administered DTaP 01/13/2002, 03/14/2002, 06/17/2002, 02/06/2003 HPV 9 Valent 11/25/2016, 02/02/2017, 06/09/2017 Hepatitis A, Ped/Adol, 2 Dose 11/25/2016, 06/09/2017 Hepatitis B, Unspecified Formulation 2001, 01/13/2002, 11/14/2002 HiB, Unspecified Formulation 01/13/2002, 03/14/2002, 11/14/2002 IPV 01/13/2002, 03/14/2002, 02/06/2003 Influenza Vaccine, Unspecified Formulation 01/14/2014 LAST MANUFACTURED 2010-Pneumococcal Conjugate 7 Valent 01/13/2002, 03/14/2002, 06/17/2002 MMR 11/14/2002 MMRV 11/12/2012 Meningococcal Conjugate 11/12/2012, 12/09/2017 PPD Test 07/21/2016 Tdap 11/12/2012, 02/15/2022 Varicella 11/14/2002 Patient Active Problem List Diagnosis Exercise induced bronchospasm Irritable bowel syndrome Insomnia, persistent BAM (generalized anxiety disorder) Adjustment disorder with anxious mood History of Thyroid nodule Past Medical History: Diagnosis Date Anxiety Self Depression Self Exercise induced bronchospasm 05/24/2014 PARDO (headache) Kidney infection Obesity due to excess calories without serious comorbidity with body mass index (BMI) in 95th to 98th percentile for age in pediatric patient 08/02/2019 Thyroid nodule 11/29/2024 Past Surgical History: Procedure Laterality Date ADENOIDECTOMY SECTION 02/28/2022 Primary Section low transverse uterine incision made at 2309.; Surgeon: Dragan Posadas MD; Location: [facility]; Service: Gynecology SECTION N/A 2023 REPEAT SECTION 39.1 with a low transverse uterine incision at 1217; Surgeon: Dragan Posadas MD; Location: [facility]; Service: Gynecology CHOLECYSTECTOMY, LAPAROSCOPIC N/A 01/09/2020 LAPAROSCOPIC CHOLECYSTECTOMY; Surgeon: Holley Hernández MD; Location: [facility]; Service: General DENTAL SURGERY ENDOMETRIAL ABLATION SALPINGECTOMY Bilateral 07/2024 TONSILLECTOMY TYMPANOSTOMY TUBE PLACEMENT Allergies Allergen Reactions Penicillins Nausea Only Bactrim [Sulfamethoxazole-Trimethoprim] Rash Omnicef [Cefdinir] Rash Zithromax [Azithromycin] Nausea And Vomiting Current Outpatient Medications on File Prior to Visit Medication Sig Dispense Refill cetirizine (ZYRTEC) 10 mg Oral Tablet Take 1 Tablet by mouth daily. 30 Tablet 2 fluticasone propionate (FLONASE) 50 mcg/actuation Nasl [place], Suspension 1 [place] by Nasal route daily. 1 Each 2 No current facility-administered medications on file prior to visit. Social History Socioeconomic History Marital status: Significant Other Spouse name: None Number of children: None Years of education: None Highest education level: None Tobacco Use Smoking status: Never Smokeless tobacco: Never Vaping Use Vaping status: Never Used Substance and Sexual Activity Alcohol use: No Alcohol/week: 0.0 oz Drug use: No Sexual activity: Not Currently Partners: Male Social Drivers of [employer] Financial Resource Strain: Low Risk (05/07/2021) Overall Financial Resource Strain (CARDIA) Difficulty of Paying Living Expenses: Not hard at all [facility] Food Insecurities Received from [facility] Transportation Intimate Partner Violence: Low Risk (08/19/2023) Received from [facility] Intimate Partner Violence If you are in a relationship, do you feel safe in that relationship?: Yes If you are in a relationship, do you feel safe in that relationship?: Yes Received from [facility] [employer] [facility] Housing/Utilities Family History Problem Relation Age of Onset Asthma Mother Thyroid Disease Mother Lupus Mother No Known Problems Sister No Known Problems Brother Kidney Disease Maternal Grandmother Diabetes Maternal Grandfather Heart Disease Maternal Grandfather Hypertension Maternal Grandfather Kidney Disease Maternal Grandfather High Cholesterol Maternal Grandfather Kidney Disease Paternal Grandmother Diabetes Paternal Grandfather Heart Disease Paternal Grandfather Other (bronchial dysplasia) Son Other (cleft palate) Son No results found. No results found for this visit on 11/29/24. Patient Care Team: Gentry Christian MD as PCP - General Lab Results Component Value Date WBC 7.0 11/11/2023 HGB 8.7 (L) 11/11/2023 HCT 26.2 (L) 11/11/2023 PLT 161 11/11/2023 CHOLESTEROL 142 02/01/2018 TRIG 82 02/01/2018 HDL 45 02/01/2018 LDLCALC 81 02/01/2018 ALT 9 06/06/2021 AST 17 06/06/2021 NA 140 02/15/2022 K 3.7 02/15/2022 CL 106 02/15/2022 CREATININE 0.48 (L) 02/15/2022 BUN 4 (L) 02/15/2022 CO2 21 (L) 02/15/2022 TSH 1.820 02/10/2023 INR 0.92 02/28/2022 GLU 146 (H) 02/15/2022 HGBA1C 5.1 04/16/2023 Additional issues addressed today: Follow-up on thyroid ultrasound. Review of Systems Constitutional: Negative for fever. HENT: Negative for congestion. Respiratory: Negative for cough, shortness of breath and wheezing. Cardiovascular: Negative for chest pain, palpitations and leg swelling. Genitourinary: Negative for menstrual problem (amenorrhea, s/p ablation.). Skin: Negative for rash and wound. Hematological: Negative for adenopathy. Does not bruise/bleed easily. OBJECTIVE: Physical Exam Constitutional: Appearance: Normal appearance. HENT: Head: Normocephalic and atraumatic. Neck: Thyroid: Thyroid mass and thyromegaly present. Cardiovascular: Rate and Rhythm: Normal rate and regular rhythm. Heart sounds: Normal heart sounds. Pulmonary: Effort: Pulmonary effort is normal. Breath sounds: Normal breath sounds. Musculoskeletal: Cervical back: Normal range of motion. Neurological: Mental Status: She is alert and oriented to person, place, and time. Psychiatric: Mood and Affect: Mood normal. Thought Content: Thought content normal. * Yamileth Gore - 11/29/2024 2:15 PM EDT Venipuncture in the right antecubital vein with 21 gauge needle, length 1 1/2 inch. documented in this encounter Plan of Treatment Not on file documented as of this encounter Goals Goal Patient Goal Type Associated Problems Recent Progress Patient-Stated? Author Maintain a healthy diet, exercise regularly and maintain an ideal body weight General No Groshaunna, Lluvia, CCMA documented as of this encounter Procedures Procedure Name Priority Date/Time Associated Diagnosis Comments THYROID PEROXIDASE (TPO) ANTIBODY Routine 11/29/2024 2:34 PM EDT Thyroid with heterogeneous echotexture determined by ultrasound TSH REFLEX TO FT4 Routine 11/29/2024 2:3 4 PM EDT Thyroid with heterogeneous echotexture determined by ultrasound Thyroid nodule CBC WITH DIFF Routine 11/29/2024 2:34 PM EDT Annual physical exam T3 FREE Routine 11/29/2024 2:34 PM EDT Thyroid with heterogeneous echotexture determined by ultrasound LIPID SCREEN Routine 11/29/2024 2:34 PM EDT Lipid screening COMPREHENSIVE METABOLIC PANEL Routine 11/29/2024 2:34 PM EDT Annual physical exam documented in this encounter Results * (ABNORMAL) THYROID PEROXIDASE (TPO) ANTIBODY (11/29/2024 2:34 PM EDT) TPO Ab 38.10(H) <=5.59 IU/mL 11/30/2024 6:00 AM EDT [facility] Blood VENOUS BLOOD / Unknown Venipuncture / Unknown 11/29/2024 2:34 PM EDT 11/29/2024 2:34 PM EDT [facility] IMMUNOLOGY ORDERABLES Final Result Performing Organization Address [facility] de Phone Number [facility] [address] , [place] [address] * T3 FREE (11/29/2024 2:34 PM EDT) Pathologist [facility] T3 Free 3.50 2.00 - 4.40 pg/mL 11/30/2024 12:14 AM EDT [employer] Blood VENOUS BLOOD / Unknown Venipuncture / Unknown 11/29/2024 2:34 PM EDT 11/29/2024 2:34 PM EDT Narrative [facility] - 11/30/2024 12:14 AM EDT Ingestion of aisha doses of biotin (>5 mg/day) taken within 8 hours of drawing blood sample can interfere with this immunoassay test. [facility] CHEMISTRY ORDERABLES Final Result Performing Organization Address [facility] Co de Phone Number [facility] [address] , [place] [address] * TSH REFLEX TO FT4 (11/29/2024 2:34 PM EDT) TSH Reflex 1.570 0.270 - 4.200 mcIU/mL 11/30/2024 12:14 AM EDT [facility] Blood VENOUS BLOOD / Unknown Venipuncture / Unknown 11/29/2024 2:34 PM EDT 11/29/2024 2:34 PM EDT Narrative [facility] - 11/30/2024 12:14 AM EDT Ingestion of aisha doses of biotin (>5 mg/day) taken within 8 hours of drawing blood sample can interfere with this immunoassay test. Komal Barcenas [employer] CHEMISTRY ORDERABLES Final Result [facility] [address] , [place] [address] * LIPID SCREEN (11/29/2024 2:34 PM EDT) Pathologist [facility] Cholesterol 133 <200 mg/dL 11/30/2024 12:14 AM EDT [facility] Comment: < 200 Desirable 200 - 239 Borderline High >= 240 High Triglyceride 105 <150 mg/dL 11/30/2024 12:14 AM EDT [facility] Comment: < 150 Normal 150 - 199 Borderline High 200 - 499 High >= 500 Very High HDL 43 >=40 mg/dL 11/30/2024 12:14 AM EDT [facility] Comment: > 60 Optimal 40 - 60 Acceptable < 40 Low LDL Calculated 71 <100 mg/dL 11/30/2024 12:14 AM EDT [facility] Comment: < 100 Optimal 100 - 129 Near or above optimal 130 - 159 Borderline High 160 - 189 High >= 190 Very High The National Institutes of Health (NIH) equation is used for all lipid panels that report calculated LDL (LDL-C). Non-HDL-C Calculated 90 <=129 mg/dL 11/30/2024 12:14 AM EDT [facility] Comment: <130 Desirable 130-159 Above Desirable 160-189 Borderline High 190-219 High >= 220 Very High Fasting Specimen? No None 025 12:14 AM EDT [facility] Blood VENOUS BLOOD / Unknown Venipuncture / Unknown 11/29/2024 2:34 PM EDT 11/29/2024 2:34 PM EDT us Komal Barcenas [employer] CHEMISTRY ORDERABLES Final Result [facility] [address] [place] [address] * COMPREHENSIVE METABOLIC PANEL (11/29/2024 2:34 PM EDT) Sodium 138 136 - 145 mmol/L 11/30/2024 12:14 AM EDT [facility] Potassium 4.0 3.5 - 5.0 mmol/L 11/30/2024 12:14 AM EDT [facility] Chloride 102 98 - 107 mmol/L 11/30/2024 12:14 AM EDT [facility] Total CO2 25 22 - 29 mmol/L 11/30/2024 12:14 AM EDT [facility] Anion Gap 11 7 - 16 mmol/L 11/30/2024 12:14 AM EDT [facility] Calcium 9.5 8.6 - 10.4 mg/dL 11/30/2024 12:14 AM EDT [facility] Glucose Lvl 82 70 - 99 mg/dL 11/30/2024 12:14 AM EDT [facility] BUN 8 6 - 20 mg/dL 11/30/2024 12:14 AM EDT [facility] Creatinine 0.66 0.51 - 1.30 mg/dL 11/30/2024 12:14 AM EDT [facility] Albumin 4.3 3.5 - 5.2 gm/dL 11/30/2024 12:14 AM EDT [facility] Total Protein 7.6 6.4 - 8.3 gm/dL 11/30/2024 12:14 AM EDT [facility] Bili Total 0.4 0.2 - 1.3 mg/dL 11/30/2024 12:14 AM EDT [facility] ALT 11 <=41 U/L 11/30/2024 12:14 AM EDT [facility] AST 15 <=40 U/L 11/30/2024 12:14 AM EDT [facility] Alk Phos 83 36 - 123 U/L 11/30/2024 12:14 AM EDT [facility] eGFR (CKD-EPIcr 2020) 126 >=60 mL/min/1.7 3 m2 11/30/2024 12:14 AM EDT [facility] Comment:Estimated GFR was ca lculated using the CKD-EPIcr (2020) equation refit without race. The equation is recommended by the National Kidney Foundation - [place] Society of Nephrology Task Force. Blood VENOUS BLOOD / Unknown Venipuncture / Unknown 11/29/2024 2:34 PM EDT 11/29/2024 2:34 PM EDT Komal Barcenas SAP PORTAL ARCHITECT CHEMISTRY ORDERABLES Final Result [facility] [address] , [place] [address] * CBC WITH DIFF (11/29/2024 2:34 PM EDT) WBC 7.1 3.7 - 10.3 x10(3)/mcL 11/29/2024 9:10 PM EDT [facility] RBC 4.70 3.90 - 5.20 x10(6)/mcL 11/29/2024 9:10 PM EDT [facility] Hgb 13.8 11.2 - 15.7 g/dL 11/29/2024 9:10 PM EDT [facility] Hct 43.0 34.0 - 45.0 % 11/29/2024 9:10 PM EDT [facility] MCV 91.5 80.0 - 100.0 fL 11/29/2024 9:10 PM EDT [facility] MCH 29.4 26.0 - 34.0 pg 11/29/2024 9:10 PM EDT [facility] MCHC 32.1 30.7 - 35.5 g/dL 11/29/2024 9:10 PM EDT [facility] RDW 12.8 <=14.9 % 11/29/2024 9:10 PM EDT [facility] Platelet 323 155 - 369 x10(3)/[facility] 11/29/2024 9:10 PM EDT [facility] MPV 10.2 8.8 - 12.5 fL 11/29/2024 9:10 PM EDT [facility] Neut Percent 55.2 % 11/29/2024 9:10 PM EDT [facility] Comment:Neutrophils equals s egs plus bands Imm Gran% 0.3 % 11/29/2024 9:10 PM EDT [facility], [facility] Comment:Automated count of m etamyelocytes, myelocytes and promyelocytes. Lymph Percent 34.9 % 11/29/2024 9:10 PM EDT [facility] [place] Percent 8.4 % 11/29/2024 9:10 PM EDT [facility] Eos Percent 1.1 % 11/29/2024 9:10 PM EDT [facility], [facility] Baso Percent 0.1 % 11/29/2024 9:10 PM EDT [facility], [facility] Neut # 3.9 1.6 - 6.1 x10(3)/[facility] 11/29/2024 9:10 PM EDT [facility] Comment:Neutrophils equals s egs plus bands IMMGRAN# 0.0 0.0 - 0.1 x10(3)/[facility] 11/29/2024 9:10 PM EDT [facility] Comment:Automated count of m etamyelocytes, myelocytes and promyelocytes. An absolute IG <0.1 is reported as 0.0. Lymph # 2.5 1.2 - 3.9 x10(3)/[facility] 11/29/2024 9:10 PM EDT [facility] [place] # 0.6 0.3 - 0.9 x10(3)/[facility] 11/29/2024 9:10 PM EDT [facility] Eos# 0.1 0.0 - 0.5 x10(3)/[facility] 11/29/2024 9:10 PM EDT [facility], [facility] Baso # 0.0 0.0 - 0.1 x10(3)/[facility] 11/29/2024 9:10 PM EDT [facility], [facility] Blood VENOUS BLOOD / Unknown Venipuncture / Unknown 11/29/2024 2:34 PM EDT 11/29/2024 2:34 PM EDT us Komal Barcenas SAP PORTAL ARCHITECT HEMATOLOGY ORDERABLES Final Result [facility] [employer] [facility] [address] [place] [address] documented in this encounter Visit Diagnoses Diagnosis Annual physical exam- Primary Routine general medical examination at a health care facility Thyroid with heterogeneous echotexture determined by ultrasound Thyroid nodule Nontoxic uninodular goiter Lipid screening Screening for lipoid disorders BMI 29.0-29.9,adult Body Mass Index 29.0-29.9, adult documented in this encounter Care Teams Net Solutions Architect Relationship Specialty Start Date End Date Gentry Christian MD [address] [place] [address] PCP - General 06/13/09 documented as of this encounter
--- OUTSIDE RECORDS SUMMARY | 2024-12-30 15:00 | XMS_ITS | Encounter Summary ---
Author Organization [place] [address] Care Team Providers Care Gl Accountant Name Role Phone Gentry Christian MD Primary Care Provider [phone] Reason for Visit * Reason Comments Thyroid Problem * Consultation (Routine) - Authorization Not Needed Specialty Diagnoses / Procedures Referred By Ana louise Referred To Contact Diabetes Services Diagnoses Anti-TPO antibodies present Procedures CO OFFICE/OUTPATIENT NEW MODERATE MDM 45 MINUTES Komal Barcenas APRN [address] [place] [address] Phone: tel: fax: Diego Aguirre MD [address] [place] [phone] Phone: tel: fax: Referral ID Status Reason Start Date Expiration Date Visits Requested Visits Authorized [id number] Authorization Not Needed 11/30/2024 11/30/2025 99 99 Encounter Details Date Type Department Care Team (Late st Contact Info) Description 12/30/2024 3:00 PM EDT Office Visit [facility] [address] [place] [phone] Patience Mariano MD [address] [employer] [address] [place] [phone] Anti-TPO antibodies present (Primary Dx); Thyroid nodule Social History Tobacco Use Types Packs/Day Years [...] Sign Reading Time Taken Comments Blood Pressure 118/70 12/30/2024 2:54 PM EDT Pulse 102 12/30/2024 2:54 PM EDT Temperature - - Respiratory Rate 18 12/30/2024 2:54 PM EDT Oxygen Saturation - - Inhaled Oxygen Concentration - - Weight 82.6 kg (182 lb) 12/30/2024 2:54 PM EDT Height 165.7 cm (5' 5.25 ) 12/30/2024 2:54 PM ED T RDC Body Mass Index 30.05 12/30/2024 2:54 PM EDT documented in this encounter Functional [...] 2:10 PM EDT Cornelia Adhikari CCMA documented as of this encounter Mental Status * Because of a physical, mental or emotional condition, does this person have serious difficulty concentrating, remembering or making decisions? 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 Discussed with patient that nearly all patients with Dannie's thyroiditis have high serum concentrations of antibodies to thyroglobulin (Tg) and thyroid peroxidase (TPO). These antibodies are also found, although usually in lower concentration, in patients with other thyroid diseases including Graves' disease and in many subjects with noclinical or biochemical evidence of thyroid dysfunction but who presumably have a mild thyroiditis.On average, up to 20 percent of all women may have such antibodies depending on the different assays reported. Explained to patient that Dannie's disease is the most common cause of primary hypothyroidism iniodine-sufficient areas of the world. Discussed natural course of the disease and expected gradual decline in thyroid function over time. There is no other clinical significance to the elevated Ab's and they do not need to be repeated or monitored. Patient verbalized understanding. Patient is clinically euthyroid with non-specific complaints. Thyroid function completely normal repeatedly (TSH, Ft4, FT3) with exception of mild TSH elevation May 2021. Thyroid profile within normal limits most recently November 2024. She is at increased risk for developing thyroid dysfunction, so I recommend screening thyroid function with reflex TSH yearly or check TSH with development of new symptoms. Patient verbalized understanding. She is comfortable seeing PCP for this. Thyroid Nodule: patient is asymptomatic. 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 Solitary nodule left lobe. No clear indication for FNA at this time. Recommend repeat US 1 year. Patient verbalized understanding. 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 Given mom's history of lupus and her increased risk for autoimmune conditions, might be good idea to see rheum for full workup. Patient verbalized understanding. Return: as needed Return if symptoms worsen or fail to improve. 1. Anti-TPO antibodies present 2. Thyroid nodule Subjective Franchesca Kyle is a 24 y.o. female Chief Complaint Patient presents with Thyroid Problem Ms. Kyle is a woman with anxiety, depression, insomnia, +TPO Ab's, thyroid nodule , and obesity. Patient is here for initial consultation with regard to anti-TPO antibodies present at the request of Ms. Barcenas. History of Present Illness The patient is a 24-year-old female who presents for an initial consultation regarding elevated TPOantibodies. She recently underwent a physical examination, during which a nodule was discovered on her thyroid.This led to further investigations, including an ultrasound and blood work. She reports no family history of thyroid cancer but mentions that her mother has thyroid issues and her maternal grandmother had parathyroid problems. She has not noticed any enlargement in her neck. She has been experiencing fatigue for several years, even though she gets adequate sleep. She reports no snoring. Her sleep duration varies from 10:30 PM to 7:00 AM. Despite this, she still feels tired upon waking. She also reports feeling cold all the time. She has a history of anxiety and depression but is otherwise in good health. She has been experiencing weight fluctuations since her sophomore year of high school, with sudden weight gain followed by minor weight loss, only to regain the weight within a month or two. Her weight has remained net stable over the past year. She experiences joint pain and swelling, which was previously diagnosed as arthritis when she was around 6 or 7 years old. However, she has not consulted a purifying plant operator for this issue. FAMILY HISTORY She reports no family history of thyroid cancer. Her mother has thyroid problems. Her maternal grandmother had parathyroid gland issues. Past Medical History: Diagnosis Date Anxiety Self Depression Self Exercise induced bronchospasm 05/24/2014 PARDO (headache) Dannie's thyroiditis Kidney infection Obesity due to excess calories without serious comorbidity with body mass index (BMI) in 95th to 98th percentile for age in pediatric patient 08/02/2019 Thyroid nodule 11/29/2024 No outpatient medications have been marked as taking for the 12/30/24 encounter (Office Visit) with Ptaience Mariano MD. Review of Systems Constitutional: Positive for fatigue and unexpected weight change. HENT: Positive for congestion. Eyes: Positive for photophobia. Musculoskeletal: Positive for arthralgias, back pain and joint swelling. All other systems reviewed and are negative. Objective Blood pressure 118/70, pulse 102, resp. rate 18, height 5' 5.25 (1.657 m), weight 182 lb (82.6 kg), not currently . Body mass index is 30.05 kg/m??. Physical Exam Vitals reviewed. Constitutional: General: She is not in acute distress. Appearance: Normal appearance. She is well-developed. She is obese. She is not toxic-appearing. HENT: Head: Normocephalic and atraumatic. Eyes: Extraocular Movements: Extraocular movements intact. Conjunctiva/sclera: Conjunctivae normal. Pupils: Pupils are equal, round, and reactive to light. Neck: Thyroid: No thyroid mass or thyromegaly (sl prominent). Cardiovascular: Rate and Rhythm: Normal rate and regular rhythm. Heart sounds: Normal heart sounds. No murmur heard. Pulmonary: Effort: Pulmonary effort is normal. Breath sounds: Normal breath sounds. No wheezing or rales. Musculoskeletal: General: No swelling. Normal range of motion. Cervical back: Normal range of motion and neck supple. Skin: General: Skin is warm and dry. Findings: No rash. Neurological: Mental Status: She is alert and oriented to person, place, and time. Deep Tendon Reflexes: Reflexes are normal and symmetric. Psychiatric: Mood and Affect: Mood normal. Behavior: Behavior normal. Thought Content: Thought content normal. Judgment: Judgment normal. Results DATA REVIEW: Pertinent labs and imaging reviewed in chart, results discussed with patient. 12/05 TSH 1.570, FT3 3.50, TPO Ab 38.10 (H); 02/02 TSH 1.820, FT4 1.16, FT3 3.45; 06/04 TSH 4.270, FT4 1.23 Thyroid US 12/05: Nodule #1: Location: Left Size: 1.2 x [...] yrs if 1-1.4cm. Diffusely heterogeneous thyroid gland. Labs from outside facility reviewed via Care Everywhere or scanned into record. Discussed with patient. Notable for: 03/01 TSH 2.828, Ft4 1.4; 06/29 TSH 1.738 The provider educated the patient (or legal inbound call center representative) on the use of the ambient listening artificial intelligence tool, [employer] They were informed that this AI tool processes the conversation to generate a clinical note with the expected benefit of improved accuracy while achieving an improved encounter experience for the patient and provider.?The provider explained that the medical information captured by the AI tool including, but not limited to, diagnoses and treatment plan would be protected in accordance with applicable privacy laws and that all diagnoses and treatment decisions would be made by the provider. The provider explained that the note generated will be reviewed bythe provider for accuracy to minimize potential errors.? The patient was given an opportunity to ask questions and opt out of proceeding with the use of the AI tool. After being informed of such information, the patient (or legal inbound call center representative), and each individual in attendance with the patient, verbally consented to the use of the AI tool. documented in this encounter Plan of Treatment Scheduled Referrals Name Type Priority Associated Diagnoses Order Schedule AMB REFERRAL TO ENDOCRINOLOGY Outpatient Referral Routine Anti-TPO antibodies present Ordered: 11/30/2024 documented as of this encounter Goals Goal Patient Goal Type Associated Problems Recent Progress Patient-Stated? Author Maintain a healthy diet, exercise regularly and maintain an ideal body weight General No Lluvia Patel CCMA documented as of this encounter Visit Diagnoses Diagnosis Anti-TPO antibodies present- Primary Other and unspecified nonspecific immunological findings Thyroid nodule Nontoxic uninodular goiter documented in this encounter Care Teams Gl Accountant Relationship Specialty Start Date End Date Gentry Christian MD [address] [place] [phone] PCP - General 06/13/09 documented as of this encounter
[2025-01-08 14:13] VITALS: BP 143/92; PULSE 99; RESP 20; TEMP 36.8; O2SAT 100; BMI 29.5
--- NOTE | 2025-01-08 14:25 | XR_ITS ---
PROCEDURE INFORMATION: Exam: XR Right Foot Exam date and time: 01/08/2025 2:46 PM Age: 24 years old Clinical indication: Injury or trauma; Other: Right foot injury TECHNIQUE: Imaging protocol: Radiologic exam of the right foot. Views: 3 or more views. COMPARISON: No relevant prior studies available. FINDINGS: Bones/joints: There is no evidence of acute fracture.There is no evidence of malalignment or dislocation. Soft tissues: Normal. IMPRESSION: There is no evidence of acute fracture.There is no evidence of malalignment or dislocation.
--- OUTSIDE RECORDS SUMMARY | 2025-01-08 14:26 | XMS_ITS | Clinical Summary ---
Author Organization [facility] Address [address] [place] [address] Care Team Providers Care Aerospace Manager Name Role Phone Gentry Christian M.D. Primary Care Provider Source Comments [facility] is fully rolled [facility] with thefollowing exceptions:[facility] Allergies Active Allergy Reactions Criticality Noted Date Comments Cephalosporins Rash Medium 03/19/2012 OMNICEF Penicillins Rash,Vomiting High 03/19/2012 AMOX Sulfa Antibiotics Paralysis,Tachycardia High 012 BACTRIM Medications No known medications Active Problems Problem Noted Date Diagnosed Date Speech disturbance 07/06/2015 Muscle cramping 07/05/2015 Abdominal pain, right lower quadrant 03/22/2012 Family History Medical History Relation Name Comments Coronary Artery Disease Maternal Grandfather stents Diabetes Maternal Grandfather Hypercholesterolemia Maternal Grandfather Kidney Disease Maternal Grandfather Myocardial Infarction Maternal Grandfather Sleep Apnea Maternal Grandfather Asthma Mother Thyroid Disease Mother Asthma Paternal Grandfather Other Paternal Grandfather removal of aneurysm Relation Name Status Comments Maternal Grandfather Alive Mother Alive Paternal Grandfather Alive Social History Tobacco Use Types Packs/Day Years Used Date Smoking Tobacco: Never Smokeless Tobacco: Never Alcohol Use Standard Drinks/Week Comments Never 0 (1 standard drink = 0.6 oz pur e alcohol) AUDIT-C Answer Date Recorded Frequency of Alcohol Consumption Never 02/24/2019 Average Number of Drinks Not on file 019 Frequency of Binge Drinking Not on file 02/11 Intimate Partner Violence Answer Date R ecorded If you are in a relationship , do you feel safe in that relationship? Yes 08/19/2023 If you are in a relationship , do you feel safe in that relationship? Yes 08/19/2023 Safety and Environment Answer Date Braxton rded Do you have any concerns of physical abuse, sexual abuse, or neglect of your child? Unable to Assess (Specify Reason in Comments) 08/19/2023 Is an adult hurting you or y our family? No 08/19/2023 Has someone ever touched you in a sexual way that was not ok with you? No 08/19/2023 Is someone hurting your or y our family? No 08/19/2023 Historical abuse worry Not on file If you have firearms in the home, are they all in locked storage AND unloaded? Not on file 08/19/2023 Comments Unknown Sex and Gender Information Value Date Recorded Sex Assigned at Not on file Legal Sex Female 5:37 AM EST Gender Identity Not on file Sexual Orientation Not on file Last Filed Vital Signs Vital Sign Reading Time Taken Comments Blood Pressure 110/65 08/19/2023 2:09 PM EDT Pulse 91 08/19/2023 2:09 PM EDT Temperature 36.5 C (97.7 F) 06/13/2018 11:36 AM EST Respiratory Rate 24 02/24/2019 8:13 AM EST Oxygen Saturation 99% 02/24/2019 8:13 AM EST Inhaled Oxygen Concentration - - Weight 82.4 kg (181 lb 10.5 oz) 08/19/2023 2:09 PM EDT Height 166 cm (5' 5.35 ) 08/19/2023 2:09 PM EDT Body Mass Index 29.9 08/19/2023 2:09 PM EDT Plan of Treatment Health Maintenance Due Date Last Done Comments IPV IMMUNIZATION (4 of 4 - 4-dose series) 2005 02/06/2003, 03/14/2002, 01/13/2002 MENINGOCOCCAL B VACCINE (1 of 2 - Standard) 2017 AMB SEASONAL FLU VACCINE (#1) 12/12/2024 01/14/2014 COVID-19 Vaccine ( - season) 2024 DTAP/Tdap/Td IMMUNIZATION (7 - Td or Tdap) 02/16/2032 02/15/2022, 11/12/2012, 02/06/2003, Additional history exists PNEUMOCOCCAL IMMUNIZATION Aged Out 2002, 03/14/2002, 01/13/2002 No longer eligible based on patient's age to complete this topic HEPATITIS B IMMUNIZATION Completed 003, 11/14/2002, 01/13/2002, Additional history exists HIB IMMUNIZATION Completed 11/14/2002, 07/2002, 03/14/2002, Additional history exists MMR IMMUNIZATION Completed 11/12/2012, 11/14/2002 VARICELLA IMMUNIZATION Completed 11/12/2012, 2002 HPV IMMUNIZATION Completed 06/09/2017, , 11/25/2016 MCV4 IMMUNIZATION Completed 12/09/2017, 11/12/2012 Respiratory Syncytial Virus (RSV) <20mo Aged Out No longer eligible based on patient's age to complete this topic Insurance [facility] [place] [facility] [place]: [address] [place] [address] Care Teams Aerospace Manager Relationship Specialty Start Date End Date Gentry Christian M.D. [place] [address] [place] [phone] PCP - General External Family Practice 07/09/11
--- OUTSIDE RECORDS SUMMARY | 2025-01-08 14:28 | XMS_ITS | Encounter Summary ---
Author Organization [facility] [place] [address] Care Team Providers Care Mule Developer Name Role Phone Gentry Chrisitan MD Primary Care Provider Encounter Details Date Type Department Care Team (Late Contact Info) Description 11/24/2024 Results Follow-Up SEP Leonardo [address] [place] [phone] Komal Barcenas, AXLE TURNER [address] [place] [address] US THYROID Social History Tobacco Use Types Packs/Day Years [...] of Assessment Author No 11/12/2023 4:06 PM MICHAELT Ambar Parks RN documented as of this encounter Mental Status * Because of a physical, mental or emotional condition, does this person have serious difficulty concentrating, remembering or making decisions? Answer Entry Date Author No 11/12/2023 4:06 PM MICHAELT Ambar Parks RN documented in this encounter Plan of Treatment Not on file documented as of this encounter Goals Goal Patient Goal Type Associated Problems Recent Progress Patient-Stated? Author Maintain a healthy diet, exercise regularly and maintain an ideal body weight General No Lluvia Patel CCMA documented as of this encounter Visit Diagnoses Not on filedocumented in this encounter Care Teams Mule Developer Relationship Specialty Start Date End Date Gentry Christian MD [address] [place] [phone] PCP - General 06/13/09 documented as of this encounter
--- OUTSIDE RECORDS SUMMARY | 2025-01-08 14:28 | XMS_ITS | Encounter Summary ---
Author Organization [place] [address] Care Team Providers Care Forensic Specialist Name Role Phone Gentry Christian MD Primary Care Provider [phone] Encounter Details Date Type Department Care Team (Late st Contact Info) Description 04/18/2016 Refill SEP Leon[place] [phone] Gentry Christian [place] [address] [place] [phone] Social History Tobacco Use Types Packs/Day Years Used Date Smoking Tobacco: Never Smokeless Tobacco: Never Alcohol Use Standard Drinks/Week Comments No 0 (1 standard drink = 0.6 oz pur e alcohol) Sexually Active Control Partners Comments Never not sexually ac tive yet Comments No Sex and Gender Information Value Date Recorded Sex Assigned at Not on file Legal Sex Female 5:08 PM EDT Gender Identity Not on file Sexual Orientation Not on file documented as of this encounter Ordered Prescriptions Prescription Sig Dispense Quantity Refills Last Filled Start Date End Date buPROPion (WELLBUTRIN) 100 mg Oral Tablet Take 1 Tab by mouth daily for 90 days. 30 Tab 2 04/18/2016 07/03/2016 documented in this encounter Plan of Treatment Not on file documented as of this encounter Visit Diagnoses Not on filedocumented in this encounter Additional Health Concerns Infection Onset Date Last Indicated Resolved Time MRSA Comment:left axillary 08/27/2015 08/27/2015 04/18/2016 9:27 AM EST R/O COVID-19 2019 2019 11/13/2019 6:03 AM EDT documented as of this encounter Care Teams Forensic Specialist Relationship Specialty Start Date End Date Gentry Christian MD [address] [place] [phone] PCP - General 06/13/09 documented as of this encounter
--- OUTSIDE RECORDS SUMMARY | 2025-01-08 14:28 | XMS_ITS | Continuity of Care Document ---
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 [place] [address] Gentry Christian MD Appointment Needed (vomiting and diarhea one week ) 11/09/2019 Travel 11/07/2019 Telephone [facility]NA ROSA [address] 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 Problem 10/27/2019 4:10 PM EDT Office Visit BHAVNA [place] [address] [place] [address] Jina Waters CNM Irregular periods (Primary Dx); Metrorrhagia; Menorrhagia with irregular cycle 10/17/[address] [place] [address] Gentry Christian MD Medication Refill 10/03/[address] [place] [address] Gentry Christian MD Symptom Call (Frequent periods) 08/11/[address] [place] [address] Gentry Christian MD Prior Authorization (norethindrone (MICRONOR) 0.35 mg Oral Tablet 56 Tab 6 08/09/2019 ) 08/09/[address] [place] [address] Gentry Christian MD Medication Refill 08/05/[address] [place] [address] Gentry Christian MD Other (return call to the office ) 08/02/2019 Travel 08/02/2019 11:20 AM EDT Office Visit [address] [place] [address] Komal Barcenas APRN Encounter for routine child health examination without abnormal findings (Primary Dx); Dysuria; Screening for STDs (sexually transmitted diseases); Recurrent UTI (urinary tract infection); Vaginal itching; Right ovarian cyst; Adjustment disorder with anxious mood; Exercise induced bronchospasm; Obesity due to excess calories without serious comorbidity with body mass index (BMI) in 95th to 98th percentile for age in pediatric patient; Other irritable bowel syndrome; Abdominal bloating 08/02/[address] [place] [address] Gentry Christian MD Symptom Call (uti) 07/18/[address] [place] [address] Gentry Christian MD Medication Refill 07/11/[address] [place] [address] Gentry Christian MD Medication Refill 06/17/2019 1:00 PM EST Office Visit [address] [place] [address] Gentry Christian MD Muscle spasm of back (Primary Dx) 06/17/2019 Travel 06/02/[address] [place] [address] Gentry Christian MD Letter for School/Work (work note ) 05/31/2019 4:40 PM EST Office Visit [address] [place] [address] Gentry Christian MD Influenza (Primary Dx); Bronchospasm 05/31/2019 Travel 05/29/[address] [place] [address] Gentry Christian MD Medication Refill 05/10/2019 2:20 PM EST Office Visit [address] [place] [address] Gentry Christian MD Acute bronchitis, unspecified organism (Primary Dx) 04/28/[address] [place] [address] Gentry Christian MD Medication Refill 04/11/2019 9:20 AM EST Office Visit [address] [place] [address] Imelda Mcnally MD Acute otitis media with effusion of right ear (Primary Dx); Non-recurrent acute serous otitis media of left ear 03/18/[address] [place] [address] Gentry Christian MD Medication Management (medication for cough and sinus congestion) 02/22/2019 9:26 AM EST - 02/22/2019 11:59 PM EST Hospital Encounter [facility] [address] [place] [id number] Jody Kothari MD Chest pain at rest; Tachycardia Discharge Disposition: Home or Self Care 02/18/[address] [place] [address] Gentry Christian MD Medication Management (heart monitor) 02/17/2019 Patient Outreach [place] [address] [place], [place] [id number] Jonathan Olivas RN ED Follow-Up Call 02/17/2019 11:00 AM [facility] Office Visit [address] [place] [address] Jody Kothari MD Chest pain at rest (Primary Dx); Tachycardia 02/17/[address] [place] [address] Gentry Christian MD Appointment Needed (ER follow up, symptoms still bad and present, wants appointment today) 02/16/2019 2:47 PM EST - 02/16/2019 5:00 PM [facility] Emergency [facility] [address] [facility] [place] [address] Gentry Yadav MD Anxiety (Primary Dx); Tachycardia, unspecified Discharge Disposition: Home or Self Care 02/16/[address] [place] [address] Gentry Christian MD Tachycardia 01/31/[address] [place] [address] Gentry Christian MD Medication Refill 01/23/[address] [place] [address] Gentry Christian MD Medication Refill 01/04/[address] [place] [address] Gentry Christian MD Other (cramps) 12/25/2018 Refill SEP [address] [place] [address] Gentry Christian MD Medication Refill 12/01/[address] [place] [address] Gentry Christian MD Medication Refill 11/07/2018 Refill SEP [address] [place] [address] Gentry Christian MD Medication Refill 10/28/[address] [place] [address] Gentry Christian MD Medication Refill 10/28/2018 11:40 AM EDT Office Visit [address] [place] [address] Gentry Christian MD Infection of skin due to methicillin resistant Staphylococcus aureus (MRSA) (Primary Dx) 10/11/[address] [place] [address] Gentry Christian MD Referral Follow-up 10/04/[address] [place] [address] Gentry Christian MD Medication Refill 10/03/[address] [place] [address] Gentry Christian MD Medication Refill 09/20/2018 5:40 PM EDT Office Visit [address] [place] [address] Jody Kothari MD Hordeolum externum of right lower eyelid (Primary Dx) 08/25/2018 11:00 AM EDT Office Visit [address] [place] [address] Swapna, Komal, VENDING ROUTE DRIVER Menstrual disorder (Primary Dx) 08/04/[address] [place] [address] Gentry Christian MD Medication Refill 07/27/2018 4:00 PM EDT Office Visit [address] [place] [address] [place], Komal, VENDING ROUTE DRIVER UTI (urinary tract infection), uncomplicated (Primary Dx); Pelvic pain 06/17/[address] [place] [address] Gentry Christian MD Abdominal Pain 06/10/[address] [place] [address] Gentry Christian MD Results 06/10/2018 1:04 PM EST - 06/10/2018 11:59 PM EST Hospital Encounter [facility] [address] [place] [address] Gentry Christian MD Abdominal pain, RLQ; Abdominal pain, RLQ (right lower quadrant) Discharge Disposition: Home or Self Care 06/08/2018 4:40 PM EST Office Visit [address] [place] [address] Gentry Christian MD Abdominal pain, RLQ (right lower quadrant) (Primary Dx); Fever, unspecified fever cause; Abdominal pain, RLQ 06/07/[address] [place] [address] Gentry Christian MD Letter for School/Work 06/04/2018 3:00 PM EST Office Visit [address] [place] [address] Gentry Christian MD Abdominal pain, RLQ (right lower quadrant) (Primary Dx) 06/04/[address] [place] [address] Gentry Christian MD Abdominal Pain 06/03/2018 Patient Outreach [place] [address] [place] [address] Rachelle Adan LPN ED Follow-Up Call (Ed Follow Up ) 06/03/[address] [place] [address] Gentry Christian MD Letter for School/Work 06/02/2018 4:09 PM EST - 06/02/2018 6:02 PM EST Emergency [facility] [address] [place] [address] Kennedy Ramirez MD Right lower quadrant abdominal pain (Primary Dx); Right ovarian cyst Discharge Disposition: Home or Self Care 06/02/2018 3:03 PM EST - 06/02/2018 4:08 PM EST Hospital Encounter [facility] [place] [facility] [address] [place] [address] Meliza Gonzáles APRN Abdominal pain, RLQ (right lower quadrant) Discharge Disposition: Home or Self Care 06/02/2018 1:20 PM EST Office Visit [facility] [address] [place] [address] Meliza Gonzáles APRN Abdominal pain, RLQ (right lower quadrant) (Primary Dx); Flank pain; Nausea 05/15/[address] [place] [address] Gentry Christian MD Medication Refill 05/13/2018 4:00 PM EST Office Visit [address] [place] [address] Jody Kothari MD Right ear pain (Primary Dx); Rhinosinusitis 02/23/[address] [place] [address] Gentry Christian MD Otalgia 02/04/[address] [place] [address] Gentry Christian MD Results 02/01/2018 11:40 AM EDT Office Visit [address] [place] [address] Imelda Mcnally MD Encounter for routine child health examination without abnormal findings (Primary Dx); Dysuria; Irregular menses; Obesity, Class I, BMI 30-34.9; Weight gain; Exercise induced bronchospasm; Arthralgia, unspecified joint 01/25/[address] [place] [address] Gentry Christian MD Medication Management 01/21/2018 Orders Only [address] [place] [address] Meliza Gonzáles APRN Other irritable bowel syndrome (Primary Dx) 01/10/[address] [place] [address] Swapna, Komal, VENDING ROUTE DRIVER Medication Refill 12/09/2017 3:40 PM EDT Clinical Support [address] [place] [address] Yamileth Gore Need for Menactra vaccination (Primary Dx) 11/16/[address] [place] [address] Swapna, Komal, VENDING ROUTE DRIVER Medication Refill 09/19/[address] [place] [address] [place], Komal, VENDING ROUTE DRIVER Medication Refill 09/17/2017 3:00 PM EDT Office Visit [address] [place] [address] Meliza Gonzáles APRN Acute left ankle pain (Primary Dx) 08/14/2017 11:40 AM EDT Office Visit [address] [place] [address] Gentry Christian MD Rash (Primary Dx); Acute bronchitis, unspecified organism 07/30/[address] [place] [address] Swapna, Komal, VENDING ROUTE DRIVER Medication Refill 06/18/2017 5:10 PM EST Office Visit [address] [place] [address] Jody Kothari MD Acute bronchitis, unspecified organism (Primary Dx); Rhinosinusitis 06/09/2017 4:00 PM EST Office Visit [address] [place] [address] Lluvia Patel CCMA Need for HPV vaccination (Primary Dx); Need for hepatitis A vaccination 06/05/[address] [place] [address] Gentry Christian MD Medication Refill 06/05/[address] [place] [address] Swapna, Komal, VENDING ROUTE DRIVER Medication Refill 05/19/2017 9:09 AM EST - 05/19/2017 11:59 PM EST Hospital Encounter [facility] [address] [place] [address] Dianne Avelar CNM Dysmenorrhea in adolescent; Menorrhagia with irregular cycle Discharge Disposition: Home or Self Care 05/13/2017 1:40 PM EST Office Visit [address] [place] [address] Swapna, Komal, VENDING ROUTE DRIVER Costochondritis (Primary Dx); Myalgia 05/13/2017 10:00 AM EST Office Visit [facility] Women's Health [facility] [address] [place] [address] Dianne Avelar CNM Dysmenorrhea in adolescent (Primary Dx); Menorrhagia with irregular cycle 04/27/2017 4:20 PM EST Office Visit [address] [place] [address] Gentry Christian MD Acute bronchitis due to Mycoplasma pneumoniae (Primary Dx) 04/10/[address] [place] [address] [place], Komal, VENDING ROUTE DRIVER Medication Refill 03/01/[address] [place] [address] [place], Komal, VENDING ROUTE DRIVER Medication Refill 02/17/2017 Patient Outreach [facility] [address] [place] [address] Lidia Villareal LPN Care Transition; Care Management - Chart Review; ED Follow-Up Call 02/16/2017 4:39 PM EST - 02/16/2017 6:05 PM EST Emergency [facility] [address] [place] [address] Richmond Martinez MD Contusion of left hand, initial encounter (Primary Dx); Contusion of left wrist, initial encounter Discharge Disposition: Home or Self Care 02/02/2017 3:40 PM EDT Clinical Support [address] [place] [address] Yamileth Gore Need for HPV vaccine (Primary Dx) 01/11/[address] [place] [address] Swapna, Komal, VENDING ROUTE DRIVER Medication Refill 01/08/[address] [place] [address] Gentry Christian MD Other 12/16/[address] [place] [address] [place], Komal, VENDING ROUTE DRIVER Visit Follow Up 12/16/[address] [place] [address] Gentry Christian MD Cough; Nasal Congestion 12/12/[address] [place] [address] Komal Barcenas APRN Visit Follow Up 12/11/2016 3:15 PM EDT - 12/11/2016 11:59 PM EDT Hospital Encounter [facility] [address] [place] [address] Diarrhea, unspecified type Discharge Disposition: Home or Self Care 12/10/2016 10:00 AM EDT Office Visit SEP [address] [place] [address] Komal Barcenas APRN Chronic abdominal pain (Primary Dx); Diarrhea, unspecified type 12/10/2016 Telephone SEP [address] [place] [address] Gentry Christian MD Abdominal Cramping; Diarrhea 12/04/[address] [place] [address] Gentry Christian MD Medication Refill 12/01/2016 3:15 PM EDT - 12/01/2016 3:51 PM EDT Emergency [facility] [address] [place] [address] Elbert Man MD Acute right lower quadrant pain (Primary Dx) Discharge Disposition: Discharged/Transferred to a [facility]ated [facility] or [facility] 12/01/[address] [place] [address] Gentry Chrisitan MD Abdominal Pain 11/29/[address] [place] [address] Gentry Christian MD Medication Refill 11/25/2016 8:00 AM EDT Office Visit [address] [place] [address] Meliza Gonzáles APRN Encounter for routine child health examination with abnormal findings (Primary Dx); Exercise induced bronchospasm; Irritable bowel syndrome, unspecified type; Insomnia, persistent; Need for hepatitis A immunization; Need for HPV vaccine; Generalized anxiety disorder 11/01/2016 6:55 PM EDT - 11/01/2016 8:25 PM EDT Emergency [facility] [address] [place] [id number] Abdias Pineda MD Sprain of left ankle, unspecified ligament, initial encounter (Primary Dx); Foot sprain, left, initial encounter Discharge Disposition: Home or Self Care 10/17/[address] [place] [address] Gentry Christian MD Visit Follow Up 09/01/2016 Orders Only [address] [place] [address] Gentry Christian MD Generalized abdominal pain (Primary Dx) 08/30/2016 9:06 AM EDT - 08/30/2016 11:59 PM EDT Hospital Encounter [facility] [place] [id number] Imelda Mcnally MD Abdominal pain, RUQ (right upper quadrant); Nausea Discharge Disposition: Home or Self Care 08/29/2016 3:30 PM EDT Office Visit [address] [place] [address] Imelda Mcnally MD Abdominal pain, RUQ (right upper quadrant) (Primary Dx); Nausea; Cellulitis of umbilicus 08/29/[address] [place] [address] Gentry Christian MD Abdominal Pain 08/01/[address] [place] [address] Gentry Christian MD Medication Management 07/23/2016 2:20 PM EDT Clinical Support [address] [place] [address] Lidia Villareal LPN Encounter for PPD skin test reading (Primary Dx) 07/21/2016 2:20 PM EDT Clinical Support [address] [place] [address] Lidia Villareal LPN PPD screening test (Primary Dx) 07/15/[address] [place] [address] Gentry Christian MD Other (ankle injury) 07/14/2016 Patient Outreach [address] [place] [address] Yamileth Abdullahi Cornelia ED Follow-Up Call 07/14/2016 Patient Outreach [address] [place] [address] Lidia Villareal LPN Care Transition; Care Management - Chart Review; ED Follow-Up Call 07/13/2016 4:18 PM EDT - 07/13/2016 7:14 PM EDT Emergency [facility] [address] [facility] [place] [address] Mychal Hogue MD Foot sprain, left, initial encounter (Primary Dx); Mild ankle sprain, left, initial encounter Discharge Disposition: Home or Self Care 07/03/2016 2:40 PM EDT Office Visit [address] [place] [address] Gentry Christian MD Generalized anxiety disorder (Primary Dx) 06/23/2016 3:20 PM EDT Office Visit [address] [place] [address] Gentry Christian MD Acute bacterial sinusitis (Primary Dx) 05/16/[address] [place] [address] Gentry Christian MD Letter for School/Work 05/14/2016 4:43 PM EST - 05/14/2016 11:59 PM EST Hospital Encounter [facility] [place] [address] Dysuria (Primary Dx) Discharge Disposition: Home or Self Care 05/14/2016 Orders Only [address] [place] [address] Noreen Remy, Cornelia Dysuria 05/14/2016 9:40 AM EST Office Visit [address] [place] [address] Meliza Gonzáles APRN UTI (urinary tract infection), uncomplicated (Primary Dx); Dysuria; Dermatitis 05/08/2016 5:10 PM EST Office Visit [address] [place] [address] Jody Kothari MD Nonintractable headache, unspecified chronicity pattern, unspecified headache type (Primary Dx); Allergic rhinitis, unspecified allergic rhinitis trigger, unspecified rhinitis seasonality 05/08/[address] [place] [address] eGntry Christian MD Other 04/18/[address] [place] [address] Gentry Christian MD 04/18/2016 Patient Outreach [address] [place] [address] Yamileth Abdullahi, [place] ED Follow-Up Call 04/18/2016 Patient Outreach [address] [place] [address] Lidia Villareal LPN Care Transition; Care Management - Chart Review; ED Follow-Up Call 04/17/2016 10:58 PM EST - 04/18/2016 12:51 AM EST Emergency [facility] Emergency [address] [place] [address] Kennedy Hutchins MD Panic attack (Primary Dx); Anxiety related tremor; Stuttering during school years Discharge Disposition: Home or Self Care 04/17/[address] [place] [address] Meliza Gonzáles APRN Tea Bag Machine Tender Note 04/15/[address] [place] [address] Gentry Christian MD Medication Problem 03/05/[address] [place] [address] Gentry Christian MD Sore Throat; Cough; Other (chest congestion) 02/06/[address] [place] [address] Analilia Leyva PA-C Medication Refill 01/24/2016 Patient Outreach [address] [place] [address] Lidia Villareal LPN Care Transition; Care Management - Chart Review; ED Follow-Up Call 01/23/2016 4:12 PM EDT - 01/23/2016 5:02 PM EDT Emergency [facility] [address] [place] [address] Quirino Isbell MD Scabies (Primary Dx) Discharge Disposition: Home or Self Care 01/21/2016 1:49 PM EDT - 01/21/2016 11:59 PM EDT Hospital Encounter [facility] [address] [place] [address] SOB (shortness of breath); Chest tightness; Wheezing Discharge Disposition: Home or Self Care 01/18/2016 1:00 PM EDT Office Visit [address] [place] [address] Analilia Leyva PA-C SOB (shortness of breath) (Primary Dx); Wheezing; Chest tightness 01/10/2016 4:20 PM EDT Office Visit [address] [place] [address] Analilia Leyva PA-C Rash (Primary Dx) 12/07/2015 2:20 PM EDT Office Visit [address] [place] [address] Gentry Christian MD Wrist sprain, right, initial encounter (Primary Dx); Bruising 11/27/2015 Patient Outreach [address] [address] [place] [address] Gracie Ledezma RMA ED Follow-Up Call 11/26/2015 9:33 PM EDT - 11/26/2015 10:48 PM EDT Emergency [facility] [address] [facility] [place] [address] Chastity Velazquez MD Wrist sprain, right, initial encounter (Primary Dx) Discharge Disposition: Home or Self Care 11/06/2015 3:00 PM EDT Office Visit [address] [place] [address] Analilia Leyva PA-C Generalized anxiety disorder (Primary Dx); Sports physical 10/03/2015 4:20 PM EDT Office Visit [address] [place] [address] Analilia Leyva PA-C Pneumonia of left lower lobe due to infectious organism 10/03/[address] [place] [address] Gentry Christian MD Other 09/27/2015 1:00 PM EDT Office Visit [address] [place] [address] Gentry Christian MD Pneumonia of left lower lobe due to infectious organism (Primary Dx); Ulnar neuropathy, unspecified laterality 09/22/2015 3:22 PM EDT - 09/22/2015 6:59 PM EDT Emergency [facility] [address] [place] [address] Mychal Pedro MD Pneumonia of left lower lobe due to infectious organism (Primary Dx); Microscopic hematuria Discharge Disposition: Home or Self Care 09/19/2015 6:15 PM EDT Office Visit [facility] [address] [place] [id number] Beatriz Pedraza APRN Chest tightness (Primary Dx); Wheeze; Cough 08/28/[address] [place] [address] Analilia Leyva PA-C Visit Follow Up 08/24/2015 4:13 PM EDT - 08/24/2015 11:59 PM EDT Hospital Encounter [facility] [place] [address] Skin infection; Abscess of axilla, left Discharge Disposition: Home or Self Care 08/23/2015 4:40 PM EDT Office Visit [address] [place] [address] Analilia Leyva PA-C Skin infection (Primary Dx); Abscess of axilla, left 07/25/[address] [place] [address] Gentry Christian MD Spasms 07/23/[address] [place] [address] Gentry Christian MD Other 07/03/[address] [place] [address] Gentry Christian MD Other 06/20/2015 3:23 PM EST - 06/20/2015 11:59 PM EST Hospital Encounter [facility]UD[facility] PROCESSING [facility] [place] [address] Family history of Bergen's disease Discharge Disposition: Home or Self Care 06/20/2015 8:40 AM EST Clinical Support [address] [place] [address] Yamileth Gore Family history of Bergen's disease (Primary Dx) 06/11/2015 11:00 AM EST Office Visit [address] [place] [address] Gentry Christian MD Acute bacterial sinusitis (Primary Dx); Nonintractable headache, unspecified chronicity pattern, unspecified headache type; Family history of Berlin's disease 06/06/[address] [place] [phone] Gentry Christian MD Visit Follow Up 06/04/2015 3:29 PM EST - 06/04/2015 11:59 PM EST Hospital Encounter [facility] [address] [place] [address] Gentry Christian MD Slurred speech; Word finding difficulty Discharge Disposition: Home or Self Care 05/29/2015 4:50 PM EST Office Visit [address] [place] [address] Gentry Christian MD Slurred speech (Primary Dx); Word finding difficulty 05/07/2015 Patient Outreach [address] [place] [address] Yamileth Abdullahi, [facility] ED Follow-Up Call 05/03/2015 12:49 PM EST - 05/03/2015 6:00 PM EST Emergency [facility] [address] [place] [address] Darrin Hinton MD Right lower quadrant abdominal pain (Primary Dx) Discharge Disposition: Home or Self Care 05/03/2015 10:40 AM EST Office Visit [address] [place] [phone] Meliza Gonzáles APRN Abdominal pain, RLQ (right lower quadrant) (Primary Dx); Dehydration, mild 05/03/[address] [facility] Women's Health [facility] [address] [place] [address] Dianne Avelar CNM Other 04/30/2015 10:36 AM EST - 04/30/2015 11:59 PM EST Hospital Encounter [facility] [address] [place], [place] [id number] Gentry Christian MD Abdominal pain, RUQ (right upper quadrant) Discharge Disposition: Home or Self Care 04/30/2015 10:15 AM EST - 04/30/2015 10:35 AM EST Hospital Encounter [facility] [address] [place] [address] Gentry Christian MD Pelvic pain in female Discharge Disposition: Home or Self Care 04/19/2015 11:20 AM EST Office Visit [address] [place] [address] Gentry Christian MD Abdominal pain, RUQ (right upper quadrant) (Primary Dx); Acute otitis media with effusion, left; Pelvic pain in female 04/17/2015 10:20 AM EST Office Visit [facility] Women's Health [facility] [address] [place] [id number] Dianne Avelar CNM Irregular menstrual cycle (Primary Dx) 03/28/2015 9:00 AM EST Office Visit [address] [place] [address] Analilia Leyva PA-C Cough (Primary Dx); Acute bacterial sinusitis 03/20/2015 11:40 AM EST Office Visit [address] [place] [address] Gentry Christian MD URI (upper respiratory infection) (Primary Dx) 03/14/2015 Patient Outreach [address] [place] [phone] Suzie Almaguer, PATIENT CARE ASSOCIATE Follow-Up Call 03/13/2015 Orders Only [address] [place] [address] Gentry Christian MD Dysmenorrhea in adolescent (Primary Dx) 03/12/2015 7:53 PM EST - 03/12/2015 10:04 PM EST Emergency [facility] Emergency [address] [facility] [place] [address] Jose Abdullahi DO Pleurisy (Primary Dx) Discharge Disposition: Home or Self Care 02/22/2015 8:25 PM EST - 02/22/2015 11:59 PM EST Hospital Encounter [facility]G LAB CLAUDIA PROCESSING [facility] [place] [id number] Burning with urination Discharge Disposition: Home or Self Care 02/22/2015 1:40 PM EST Office Visit [address] [place] [address] Gentry Christian MD Burning with urination (Primary Dx); Abdominal pain, RLQ (right lower quadrant) 02/06/2015 4:30 PM EDT Office Visit [address] [place] [address] Meliza Gonzáles, MARIANA Right knee pain (Primary Dx) 12/27/2014 11:40 AM EDT Office Visit [address] [place] [address] Imelda Mcnally MD Cellulitis of right upper extremity (Primary Dx); Exposure to MRSA 12/27/[address] [place] [address] Gentry Christian MD Insect Bite 12/14/[address] [place] [address] Gentry Christian MD Letter for School/Work 11/27/[address] [place] [address] Gentry Christian MD Cough; Sore Throat 10/27/2014 10:10 AM EDT Office Visit [address] [place] [address] Gentry Christian MD Irregular menses (Primary Dx); Insomnia; Seasonal allergies 08/17/[address] [place] [address] Gentry Christian MD Other 08/11/2014 2:10 PM EDT Office Visit [address] [place] [address] Gentry Christian MD Infectious mononucleosis (Primary Dx) 08/09/2014 8:45 PM EDT - 08/09/2014 11:59 PM EDT Hospital Encounter [facility]G LAB CLAUDIA PROCESSING [facility] [address] [place] [id number] Headache; Fatigue Discharge Disposition: Home or Self Care 08/09/2014 3:40 PM EDT Clinical Support [address] [place] [address] Yamileth Gore Headache (Primary Dx); Fatigue 08/07/[address] [place] [address] Gentry Christian MD Migraine 07/15/[address] [place] [address] Imelda Mcnally MD Results 07/14/2014 12:49 PM EDT - 07/14/2014 11:59 PM EDT Hospital Encounter [facility] [address] [place] [address] Wrist pain, acute, right Discharge Disposition: Home or Self Care 07/14/2014 11:00 AM EDT Office Visit [address] [place] [address] Imelda Mcnally MD Wrist pain, acute, right (Primary Dx) 07/07/2014 2:20 PM EDT Office Visit [address] [place] [address] Imelda Mcnally MD Wrist pain, acute, right (Primary Dx); Irregular menses 07/04/2014 2:00 PM EDT Office Visit [address] [place] [address] Gentry Christian MD Irregular menstrual bleeding (Primary Dx); Viral syndrome 06/22/2014 Patient Outreach [address] [place] [phone] Suzie Almaguer, PATIENT CARE ASSOCIATE Follow-Up Call (Within 72 hours) 06/21/2014 6:04 PM EDT - 06/21/2014 7:20 PM EDT Emergency [facility] [address] [address] Caesar Whitley MD Leg pain, right (Primary Dx) Discharge Disposition: Home or Self Care 06/12/2014 10:40 AM EST Office Visit [address] [place] [address] Gentry Christian MD Irregular menses (Primary Dx); Dysmenorrhea 05/25/2014 Patient Outreach [address] [place] [address] Suzie Almaguer, PATIENT CARE ASSOCIATE Follow-Up Call ([place] 72 hours) 05/24/2014 1:44 PM EST - 05/24/2014 3:42 PM EST Emergency [facility] Emergency [address] [place] [address] Alfa Nava MD RLQ abdominal pain (Primary Dx) Discharge Disposition: Home or Self Care 05/24/2014 10:40 AM EST Office Visit [address] [place] [address] Imelda Mcnally MD RLQ abdominal pain (Primary Dx); Exercise induced bronchospasm; Nausea 05/05/2014 4:20 PM EST Office Visit [address] [place] [address] Gentry Christian MD Cough (Primary Dx); Muscle cramps; Sternocleidomastoid muscle tenderness 03/21/2014 11:40 AM EST Office Visit [address] [place] [address] Gentry Christian MD Acute bronchitis (Primary Dx) 02/09/2014 11:30 AM EDT Office Visit [address] [place] [address] Jody Kothari MD Knee pain, right (Primary Dx) 12/02/[address] [place] [address] Gentry Christian MD Other 08/29/2013 1:30 PM EDT Office Visit [address] [place] [address] Gentry Christian MD Acute sinusitis (Primary Dx) 06/16/2013 11:30 AM EST Office Visit [address] [place] [address] Gentry Christian MD Otitis media (Primary Dx); Headache 03/07/2013 11:45 AM EST Office Visit [address] [place] [address] Jody Kothari MD Foot pain (Primary Dx); Dietary surveillance and counseling; Exercise counseling 03/07/[address] [place] [address] Gentry Christian MD Toe Pain 03/02/2013 5:20 PM EST - 03/02/2013 6:30 PM EST Emergency [facility] [address] [facility] [place] [address] Triston Mcguire MD Ankle sprain (Primary Dx); Foot sprain Discharge Disposition: Home or Self Care 01/04/2013 8:22 PM EDT - 01/04/2013 9:13 PM EDT Emergency [facility] [address] [place] [address] Richmond Martinez MD Wrist sprain (Primary Dx) Discharge Disposition: Home or Self Care 12/16/2012 5:00 PM EDT Office Visit [address] [place] [address] Gentry Christian MD Acute pharyngitis (Primary Dx); Exercise induced bronchospasm 11/15/2012 9:20 AM EDT Office Visit [address] [place] [address] Gentry Christian MD Mole (skin) (Primary Dx) 11/12/2012 11:40 AM EDT Office Visit [address] [place] [address] Gentry Christian MD Well child check (Primary Dx); Mole (skin) 07/27/2012 11:00 AM EDT Office Visit [address] [place] [address] Gentry Christian MD Seasonal allergies (Primary Dx) 06/15/2012 5:57 PM EST - 06/15/2012 6:47 PM EST [facility] [address] [facility] [place] [address] Edu Antoine DO Foot sprain (Primary Dx) Discharge Disposition: Home or Self Care 05/25/2012 1:50 PM EST Office Visit [address] [place] [address] Gentry Christian MD Acute bronchitis (Primary Dx) 03/17/2012 3:50 PM EST Office Visit [address] [place] [address] Gentry Christian MD Abdominal pain (Primary Dx) 02/26/2012 11:30 AM EST Office Visit [address] [place] [address] Georgette Tovar MD Abdominal pain (Primary Dx) 02/11/2012 11:00 AM EDT Office Visit [address] [place] [address] Gentry Christian MD Migraine (Primary Dx) 01/26/[address] [place] [address] Gentry Christian MD Otalgia 12/18/2011 11:15 AM EDT Office Visit [address] [place] [address] Jody Kothari MD Leg pain; Bug bites 11/19/2011 3:40 PM EDT Office Visit [address] [place] [address] Gentry Christian MD Contusion of upper arm, right (Primary Dx) 11/17/2011 3:00 PM EDT Office Visit [address] [place] [address] Gentry Christian MD Pain, arm, right (Primary Dx) 09/19/2011 11:40 AM EDT Office Visit [address] [place] [address] Gentry Christian MD Conjunctivitis (Primary Dx) 08/26/2011 11:50 AM EDT Office Visit [address] [place] [address] Gentry Christian MD Tonsillitis (Primary Dx) 08/14/2011 11:30 AM EDT Office Visit [address] [place] [address] Georgette Tovar MD Pharyngitis, acute (Primary Dx); Nausea alone 08/01/[address] [place] [address] Gentry Christian MD Other 07/31/[address] [place] [address] Gentry Christian MD Abdominal Pain 07/30/2011 2:20 PM EDT Office Visit [address] [place] [address] Gentry Christian MD RLQ abdominal pain (Primary Dx) 07/25/2011 8:30 AM EDT Office Visit [address] [place] [address] Jody Kothari MD Abdominal pain, other specified site (Primary Dx) 07/24/2011 5:05 PM EDT - 07/24/2011 8:29 PM EDT [facility] [address] [place] [address] Triston Mcguire MD Abdominal pain, other specified site Discharge Disposition: Home or Self Care 07/17/2011 10:20 AM EDT Office Visit [address] [place] [address] Gentry Christian MD Acute pharyngitis (Primary Dx) 07/10/[address] [place] [address] Gentry Christian MD Abdominal Pain 07/09/2011 9:30 AM EDT Office Visit [address] [place] [address] Gentry Christian MD RLQ abdominal pain (Primary Dx) 07/03/2011 11:30 AM EDT Office Visit [address] [place] [address] Jody Kothari MD URI (upper respiratory infection); RLQ abdominal pain 07/03/[address] [place] [address] Gentry Christian MD Abdominal Pain 07/01/2011 6:05 PM EDT - 07/01/2011 7:14 PM EDT [facility] [address] [facility] [place] [address] Mychal Fritz MD UTI (lower urinary tract infection) Discharge Disposition: Home or Self Care 06/04/2011 11:10 AM EST Office Visit [address] [place] [phone] Gentry Christian MD Sternocleidomastoid muscle tenderness (Primary Dx) 06/03/2011 7:30 PM EST Office Visit [facility] [place] [address] [place] [address] Allison Jaramillo MD Neck pain (Primary Dx) 05/30/2011 4:20 PM EST Office Visit [address] [place] [address] Gentry Christian MD Migraine (Primary Dx); PARDO (headache); Acute bronchitis 05/26/2011 4:49 PM EST - 05/26/2011 6:12 PM EST Emergency [facility] [address] [place] [address] Jim Lora MD Foot contusion Discharge Disposition: Home or Self Care 05/09/2011 3:50 PM EST Office Visit [facility] [address] [place] [address] Gentry Christian MD Eustachian tube dysfunction (Primary Dx) 05/08/2011 Telephone [facility] [address] [place] [address] Gentry Christian MD Otalgia 04/30/2011 Telephone [facility] [address] [place] [address] Gentry Christian MD Otalgia 02/27/2011 10:29 AM EST - 02/27/2011 11:31 AM EST Emergency [facility] [address] [place] [address] Pantera Estevez MD Foot fracture, right Discharge Disposition: Home or Self Care 02/27/2011 9:00 AM EST Office Visit [facility] [address] [place] [address] Georgette Tovra MD Ankle pain (Primary Dx); Foot injury 01/30/2011 11:40 AM EDT Office Visit [facility] [address] [place] [address] Gentry Christian MD [facility] ([facility]x) 01/27/2011 Telephone [facility] [address] [place] [address] Analilia Amaral MA Hoarse 01/23/2011 Telephone [facility] [address] [place] [address] Analilia Amaral MA Allergic Reaction 01/21/2011 10:30 AM EDT Office Visit [facility] [address] [place] [address] Schack, Gentry W, MD Strep throat (Primary Dx) 01/02/2011 8:23 AM EDT - 01/02/2011 11:59 PM EDT Hospital Encounter EDG LAB CLAUDIA PROCESSING [facility] [place] [address] UTI (lower urinary tract infection) Discharge Disposition: Home or Self Care 01/02/2011 8:00 AM EDT Clinical Support [facility] [place] [address] [place] [address] Gentry Christian MD Dysuria (Primary Dx); UTI (lower urinary tract infection) 01/01/[address] [place] [address] Gentry Christian MD Urinary Tract Infection 12/03/2010 4:10 PM EDT Office Visit [address] [place] [address] Gentry Christian MD PARDO (headache); Infection, enterovirus; Bruising 09/20/2010 11:15 AM EDT Office Visit [facility] [place] [address] [place] [address] Gentry Christian MD Migraine (Primary Dx) 08/05/2010 11:15 AM EDT Office Visit [facility] [address] [place] [address] Gentry Christian MD Ankle sprain (Primary Dx) 07/05/2010 1:00 PM EDT Office Visit [facility] [address] [place] [address] Jody Kothari MD AR (allergic rhinitis); Head ache 05/10/2010 9:30 AM EST Office Visit [facility] [address] [place] [address] Gentry Christian MD Acute sinusitis (Primary Dx) 04/23/[address] [place] [address] Gentry Christian MD Sore Throat 03/06/2010 9:42 PM EST - 03/06/2010 11:59 PM EST Hospital Encounter EDG LAB CLAUDIA PROCESSING [facility] [place] [address] Renny Morales MD Urinary tract infection, site not specified Discharge Disposition: Home or Self Care 12/12/2009 Abstract [facility] [address] 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 11/26/2009 6:10 PM EDT - 11/26/2009 7:17 PM EDT Emergency [facility] GES GRT Mychal Fritz MD Generic, Historical Provider 05/02/2008 10:42 AM EST - 05/02/2008 11:59 PM EST Hospital Encounter [facility]ST LAB GRT Mychal Lyons DMD 11/14/2007 2:21 PM EDT - 11/14/2007 4:04 PM EDT Emergency [facility] E/D BLUE EDG Real Cox MD 03/17/2007 3:37 PM EST - 03/17/2007 5:07 PM EST Emergency [facility] EPIC CON UNK GRT Christiano Doan MD 06/19/2006 - 06/19/2006 12:26 PM EST Hospital Encounter [facility] ESDS FTT Generic, Historical Provider 02/25/2005 7:27 AM EST - 02/25/2005 11:59 PM EST Hospital Encounter [facility] RADIOLOGY GRT Raúl Wood MD 03/14/2004 11:12 PM EST - 03/15/2004 12:12 AM EST Emergency [facility] EMERGENCY FTT Generic, Historical Provider 09/06/2003 7:30 AM EDT - 09/06/2003 11:10 AM EDT Hospital Encounter [facility] ESDS FTT Generic, Historical Provider 07/28/2003 9:40 PM EDT - 07/28/2003 10:55 PM EDT Emergency [facility] EMERGENCY FTT Generic, Historical Provider 02/25/2002 9:34 PM EST - 02/26/2002 12:45 AM EST Emergency [facility] EMERGENCY FTT Generic, Historical Provider 2001 3:05 PM EDT - 2001 1:00 PM EDT Hospital Encounter HST ENBN FTT Generic, Historical Provider Allergies Active Allergy Reactions Criticality Noted Date Comments Penicillins Nausea Only Medium 04/23/2010 Cefdinir Rash 01/23/2011 Sulfamethoxazole-Trimethoprim Rash 2011 Azithromycin Nausea And Vomiting 04/11/2019 Medications cetirizine (ZYRTEC) 10 mg Oral TabletIndication s:Middle ear effusion, right Take 1 Tablet by mouth daily. 30 Tablet 2 11/22/2024 Active fluticasone propionate (FLONASE) 50 mcg/actuation Nasl [place], SuspensionIndica tions:Middle ear effusion, right 1 Gunlock by Nasal route daily. 1 Each 2 11/22/2024 Active Active Problems Patient Care Coordination No te Formatting of this note migh t be different from the original. Utilization audit completed by Hermila Crabtree RN on 05/13/2022. 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 Thyroid nodule 11/29/2024 Overview (11/29/2024): Due for followup imaging 11/2025 Assessment & Plan (11/29/2024 2:24 PM EDT): Repeat ultrasound 11/2025 Orders: TSH REFLEX TO FT4; Future History of 04/30/2022 Adjustment disorder with anxious mood 03/30/2017 Overview (08/02/2019): Stable on paxil Insomnia, persistent 11/25/2016 BAM (generalized anxiety disorder) 11/25/2016 Overview (10/28/2021): Pt weaned off meds w/ +UPT Doing well for now~prefers to remain off med if possible Irritable bowel syndrome 12/21/2014 Overview (08/02/2019): Stable with diet and prn use of Bentyl Assessment & Plan (08/02/2019 1:00 PM EDT): Triggered by foods. Will get food allergy and check celiac. If normal, consider gallbladder workup Exercise induced bronchospasm 05/24/2014 Overview (08/02/2019): Prn use of albuterol Resolved Problems Problem Noted Date Diagnosed Date Resolved Date Acute blood loss anemia 11/11/202312/12 History of delivery 2023 12/23/2023 delivery delivered 2023 12/23/2023 Decreased movements in third trimester 10/14/2023 Low-lying placenta 07/08/2023 Overview (10/20/2023): @ anatomy scan Posterior, tip of placenta 15 mm from IO Recheck 28 wks -- listed as posterior but no mention of transvaginal imaging Repeat scheduled 32wk RESOLVED Cleft lip and palate, , affecting care of mother, antepartum 07/08/2023 12/23/2023 Overview (10/29/2023): Dx @ [facility] anatomy Referred to [facility] / has consult scheduled - s/p crainofacial genetics appointment 08/18. Next follow up is after delivery. F/u u/s 28 and 32 wks 28wk EFW 1,172 35%. MVP nml. Breech. 36wk EFW 2,955 65%. CHANCE nml. Breech Encounter for supervision of other normal , second trimester 05/13/2023 12/23/2023 Overview (10/14/2023): pt PNL wnl Dating U/S cw lmp GS: declined Anatomy: +cleft lip / palate, LLP - see note, f/u planned -- see problem list GCT/CBC nml History of premature rupture of membranes (PPROM) 05/13/2023 12/23/2023 Overview (05/13/2023): PPROM @ 28 weeks, inpt stay X 2weeks before C/S History of placenta abruption 05/13/2023 12/23/2023 Overview (05/13/2023): Abruption, after PPROM, while inpt Previous section co mplicating 05/13/2023 12/23/2023 Overview (09/01/2023): [facility] (Cuauhtemoc) Early stage of 05/08/2023 Overview (05/08/2023): 05/08/23 12 04/19 [place] 11/16/23 Placental abruption in third trimester 03/01/2022 04/30/2022 delivery delivered 03/01/2022 04/30/2022 premature rupture of membranes (PPROM) with unknown onset of labor 02/14/202204/13 Overview (02/14/2022): PPROM on 02/13 Normal labor and delivery 02/13/2022 Low back pain during pregnan cy in third trimester 01/29/2022 03/01/2022 Decreased movements in second trimester 01/14/20 22 02/10/2022 Separation of chorion and am nion membranes, antepartum 12/26/2021 04/30/2022 Overview (02/10/2022): Large separation on anatomy scan MFC 23w5d EFW 19%, AC 25% Amniotic fluid subjectively low but a > 2 cm x 2 cm pocket of fluid is witnessed. No gross anatomic abnormalities Previously identified global amnion-chorion separation is again witnessed. 25w EFW 913g 62% -- f/u in 2 wk if stable consider growth q 3-4 weeks and testing starting 28-30wk 27wk EFW 1,196g 58% - separation remains present MF DISCUSSION: NIPT with low-risk male results. We reviewed again that the amnion-chorion separation with subjectively low amniotic fluid volume places the at higher risk for adverse outcomes including PPROM, , distress, and still (IUFD). The option for inpatient management exists. Alternatively, it is reasonable for such patients to continue outpatient self-surveillance and monitoring with a potentially lessened ability to identify distress and intervene to prevent IUFD. Ms. Kyle demonstrated understanding of this and elects to continue outpatient surveillance rather than ini..ate inpa..ent management at this ..me. Recommendations: - F/U here in 2 weeks for a follow-up OB US with biometry and fluid assessment - At that with me, we will re-address Susannah's desires regarding continued outpatient vs inpatient management - She can continue routine care through your practice as we will comanage her high-risk decisionmaking through follow-up US appointments at the [facility]. Supervision of normal first , antepartum 10/16/2021 04/18/2022 Overview (02/10/2022): pt GS: low-risk Male [place] by LMP (c/w 8 wk US) PNL's nml Anatomy [facility] suboptimal, see report, f/u scheduled, large amnion chorion sep Flu shot / COVID vaccine declined GCT/CBC nml Biliary dyskinesia 01/09/2020 Assessment & Plan (01/10/2020 8:12 AM EDT): POD#1 s/p lap sophie (01/08) Dr. Hernández Doing well overall today Tolerating diet w/o pain Incisions clean, dry, intact Able to ambulate to BR w/o issues Okay to d/c from EGS perspective; f/u in 2 weeks or complete MyChart Evisit; d/c instructions on chart Intractable abdominal pain 01/08/2020 0 05/31/2020 Biliary colic 01/08/2020 05/31/2020 Obesity due to excess calori es without serious comorbidity with body mass index (BMI) in 95th to 98th percentile for age in pediatric patient 08/02/2019 05/13/2023 Overview (08/02/2019): Reviewed diet/exercise. Had labs at [facility] one year ago, normal Right ovarian cyst 06/02/2018 2 Overview (08/02/2019): Stable with micronor Nausea & vomiting 08/14/2011 2023 Overview (10/28/2021): Taking Zofran and Phenergan PRN 14# wt loss @ [facility] Assessment & Plan (06/06/2021 1:23 PM EST): Saw GI in past. Had negative celiac workup. Still has not completed HPylori Testing. Has had worsening symptoms past two months. Will get updated labs, start PPI and have her get the breath test. Pharyngitis, acute 08/14/2011 2 Foot injury 02/27/2011 02/11/2012 Ankle pain 02/27/2011 02/11/2012 PARDO (headache) 02/11/2012 Overview (05/30/2011): Likely migraines, mother with history of Migraines. Immunizations Immunization Administration Dates Next Due DTaP 02/06/2003, 3,03/14/2002,06/2001 HPV 9 Valent 06/09/2017,02/02/2017,11/25/2016 Hepatitis A, Ped/Adol, 2 Dose 06/09/2017, 017 Hepatitis B, Unspecified Formulation 11/14/2002, 01/13/2002,2001 HiB, Unspecified Formulation 11/14/2002,03/14/20 02,01/13/2002 IPV 02/06/2003,03/14/2002,01/13/2002 Influenza Vaccine, Unspecifi ed Formulation 01/14/2014 LAST MANUFACTURED 2010-Pneum ococcal Conjugate 7 Valent 06/17/2002,03/14/2002,01/13/2002 MMR 11/14/2002 MMRV 11/12/2012 Meningococcal Conjugate 12/09/2017,11/12/2012 PPD Test 07/21/2016 Tdap 02/15/2022,11/12/2012 11/12/2022 Varicella 11/14/2002 Family History Medical History Relation Name Comments Eds Brother No Known Problems Father Diabetes Maternal Grandfather Gerhard Heart Attack Maternal Grandfather Gerhard Heart Disease Maternal Grandfather Gerhard Heart Failure Maternal Grandfather Gerhard High Blood Pressure Maternal Grandfather Gerhard High Cholesterol Maternal Grandfather Gerhard Hypertension Maternal Grandfather Gerhard Kidney Disease Maternal Grandfather Gerhard Anxiety Disorder Maternal Grandmother Depression Maternal Grandmother Kidney Disease Maternal Grandmother Thyroid Disease Maternal Grandmother Urolithiasis Maternal Grandmother hyperparathyroidism Maternal Grandmother Anemia Mother Michell Anxiety Disorder Mother Michell Asthma Mother Michell Dannie's Mother Michell Lupus Mother Michell Thyroid Disease Mother Michell Diabetes Paternal Grandfather Heart Disease Paternal Grandfather High Blood Pressure Paternal Grandfather High Cholesterol Paternal Grandfather Anxiety Disorder Paternal Grandmother Depression Paternal Grandmother Urolithiasis Paternal Grandmother No Known Problems Sister bronchial dysplasia Son 1 cleft palate Son 2 Relation Name Status Comments Brother Alive Father Alive Maternal Grandfather Gerhard Alive Maternal Grandmother Alive Mother Michell Alive Paternal Grandfather Paternal Grandmother Sister Alive Son 1 Alive Son 2 Alive Social History Smoking Status as of 01/08/2025 Tobacco Use Types Packs/Day Years Used Date Smoking Tobacco: Never Assessed Overall Financial Resource Strain (CARDIA) Answe r [...] things needed for daily living? No 05/07/2021 Sex and Gender Information Value Date Recorded Sex Assigned at Not on file Legal Sex Female 5:08 PM EDT Gender Identity Not on file Sexual Orientation Not on file Last Filed Vital Signs Vital Sign Reading Time Taken Comments Blood Pressure 118/70 12/30/2024 2:54 PM EDT Pulse 102 12/30/2024 2:54 PM EDT Temperature 36.4 C (97.5 F) 11/29/2024 2:10 PM EDT Respiratory Rate 18 12/30/2024 2:54 PM EDT Oxygen Saturation 98% 11/29/2024 2:10 PM EDT Inhaled Oxygen Concentration - - Weight 82.6 kg (182 lb) 12/30/2024 2:54 PM EDT Height 165.7 cm (5' 5.25 ) 12/30/2024 2:54 PM ED T RDC Body Mass Index 30.05 12/30/2024 2:54 PM EDT Plan of Treatment Not on file Procedures Procedure Name Priority Date/Time Associated Diagnosis Comments THYROID PEROXIDASE (TPO) ANTIBODY Routine 11/29/2024 2:34 PM EDT Thyroid with heterogeneous echotexture determined by ultrasound T3 FREE Routine 11/29/2024 2:34 PM EDT Thyroid with heterogeneous echotexture determined by ultrasound TSH REFLEX TO FT4 Routine 11/29/2024 2:34 PM EDT Thyroid with heterogeneous echotexture determined by ultrasound Thyroid nodule LIPID SCREEN Routine 11/29/2024 2:34 PM EDT Lipid screening COMPREHENSIVE METABOLIC PANEL Routine 11/29/2024 2:34 PM EDT Annual physical exam CBC WITH DIFF Routine 11/29/2024 2:34 PM EDT Annual physical exam US THYROID Routine 11/24/2024 10:42 AM EDT Thyroid mass SEP CHARITY FLU+SARS ANTIGEN Routine 05/17/2024 2:15 PM EST Nasal congestion CBC WITH DIFF Early AM 11/11/2023 6:55 AM EDT SPINAL BLOCK Routine 2023 11:47 AM EDT REPEAT SECTION 2023 11:36 AM EDT History of Special Needs 39.1 ADMIT Routine 2023 10:37 AM EDT DRUGS OF ABUSE WITH REFLEX TO CONFIRMATION, URINE STAT 2023 9:39 AM EDT BB HISTORY CHECK Routine 11/09/2023 10:04 AM EDT ANTIBODY SCREEN IGG Routine 11/09/2023 10:04 AM EDT ABORH Routine 11/09/2023 10:04 AM EDT TYPE AND SCREEN Routine 11/09/2023 10:04 AM EDT SYPHILIS SCREEN WITH REFLEX RPR QUANT Routine 11/09/2023 10:04 AM EDT CBC WITH DIFF Routine 11/09/2023 10:04 AM EDT HIV AG/AB Routine 11/09/2023 10:04 AM EDT HIGH RISK HCV ANTIBODY REFLEX Routine 11/09/2023 10:04 AM EDT SEP URINALYSIS POC Routine 11/02/2023 10:12 AM EDT Encounter for supervision of other normal , second trimester SEP URINALYSIS POC Routine 10/29/2023 3:50 PM EDT Supervision of other normal , antepartum CHLAMYDIA/GC BY TMA Routine 10/20/2023 10:43 AM EDT Supervision of other normal , antepartum CHLAMYDIA/GC Routine 10/20/2023 10:43 AM EDT Supervision of other normal , antepartum STREP B DNA Routine 10/20/2023 10:43 AM EDT Supervision of other normal , antepartum SEP URINALYSIS POC Routine 10/20/2023 10:20 AM EDT Supervision of other normal , antepartum PN US OB FOLLOW UP TRANSABDOMINAL APPROACH EACH GESTATION Routine 10/19/2023 10:06 AM EDT cleft lip and palate affecting antepartum care of mother, single or unspecified fetus SEP URINALYSIS POC Routine 10/14/2023 10:41 AM EDT Encounter for supervision of other normal , second trimester SEP URINALYSIS POC Routine 10/01/2023 10:14 AM EDT Supervision of other normal , antepartum PN US BIOPHYSICAL PROFILE WITHOUT NST SINGLE OR FIRST GESTATION STAT 09/28/2023 7:30 PM EDT URINALYSIS POC Routine 09/28/2023 5:04 PM EDT SEP URINALYSIS POC Routine 09/17/2023 10:04 AM EDT Encounter for supervision of normal first in third trimester PN US CERVICAL LENGTH W FOLLOW UP Routine 09/16/2023 8:52 AM EDT Low-lying placenta cleft lip and palate affecting antepartum care of mother, single or unspecified fetus SEP URINALYSIS POC Routine 09/01/2023 10:16 AM EDT Supervision of other normal , antepartum PN US OB FOLLOW UP TRANSABDOMINAL APPROACH EACH GESTATION Routine 08/25/2023 11:29 AM EDT History of History of premature rupture of membranes (PPROM) History of placenta abruption Previous section complicating Low-lying placenta cleft lip and palate affecting antepartum care of mother, single or unspecified fetus SEP URINALYSIS POC Routine 08/14/2023 1:10 PM EDT Supervision of other normal , antepartum CBC WITH DIFF Routine 08/10/2023 1:19 PM EDT Supervision of other normal , antepartum PREG GLUCOSE SCREEN Routine 08/10/2023 1:19 PM EDT Supervision of other normal , antepartum SEP URINALYSIS POC Routine 08/06/2023 4:15 PM EDT Supervision of other normal , antepartum SEP URINALYSIS POC Routine 07/08/2023 9:38 AM EDT Supervision of other normal , antepartum PN US CERVICAL LENGTH W COMPLETE Routine 06/29/2023 2:52 PM EDT Encounter for supervision of other normal in second trimester History of premature rupture of membranes (PPROM) History of placenta abruption Previous section complicating URINE CULTURE (NO STAIN) Routine 06/10/2023 12:02 PM EST Encounter for supervision of other normal in second trimester SEP URINALYSIS POC Routine 06/10/2023 10:25 AM EST Encounter for supervision of other normal in second trimester 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 CYTOLOGY REQUEST (PAP ONLY) Routine 05/13/2023 11:41 AM EST Encounter for supervision of other normal in second trimester [facility] 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 CYTOLOGY ORDER Routine 05/13/2023 11:41 AM EST Encounter for supervision of other normal in second trimester TRICHOMONAS VAGINALIS BY TMA (PAP PANEL) Routine 05/13/2023 11:41 AM EST Encounter for supervision of other normal in second trimester GC CHLAMYDIA THIN PREP Routine 05/13/2023 11:41 AM EST Encounter for supervision of other normal in second trimester SEP URINALYSIS POC Routine 05/13/2023 10:59 AM EST Encounter for supervision of other normal in second trimester PN US OB < 14 WEEKS SINGLE OR FIRST GESTATION Routine 05/08/2023 8:21 AM EST Uterine size-date discrepancy, antepartum DRUGS OF ABUSE WITH REFLEX TO CONFIRMATION, URINE Routine 04/16/2023 3:38 PM EST First trimester screening BB HISTORY CHECK Routine 04/16/2023 3:07 PM EST First trimester screening ABORH Routine 04/16/2023 3:07 PM EST First trimester screening ANTIBODY SCREEN IGG Routine 04/16/2023 3:07 PM EST First trimester screening CBC WITH DIFF Routine 04/16/2023 3:07 PM EST First trimester screening RUBELLA ANTIBODY IGG Routine 04/16/2023 3:07 PM EST First trimester screening SYPHILIS SCREEN WITH REFLEX RPR QUANT Routine 04/16/2023 3:07 PM EST First trimester screening HEPATITIS B SURFACE ANTIGEN Routine 04/16/2023 3:07 PM EST First trimester screening HIV AG/AB Routine 04/16/2023 3:07 PM EST First trimester screening HEMOGLOBIN A1C Routine 04/16/2023 3:07 PM EST First trimester screening HCV ANTIBODY SCREEN W/ REFLEX Routine 04/16/2023 3:07 PM EST First trimester screening URINE CULTURE (NO STAIN) Routine 04/16/2023 3:07 PM EST First trimester screening HUMAN CHORIONIC GONADOTROPIN QUANTITATIVE Routine 04/01/2023 10:35 AM EST Positive test T3 FREE Routine 02/10/2023 11:23 AM EDT Screening for thyroid disorder T4, FREE (THYROXINE) Routine 02/10/2023 11:23 AM EDT Screening for thyroid disorder THYROID STIMULATING HORMONE Routine 02/10/2023 11:23 AM EDT Screening for thyroid disorder POCT CHARITY SARS ANTIGEN Routine 08/21/2022 11:08 AM EDT Sinus congestion POCT CHARITY INFLUENZA A/B Routine 08/21/2022 10:10 AM EDT Sinus congestion Rhinosinusitis SEP URINALYSIS POC Routine 03/25/2022 9:23 AM EST UTI (urinary tract infection), uncomplicated CBC WITH DIFF Timed 03/01/2022 7:35 AM EST PATHOLOGY TISSUE REQUEST Routine 02/28/2022 11:37 PM EST CORD BLOOD GAS VENOUS STAT 02/28/2022 11:27 PM EST CORD BLOOD GAS ARTERIAL STAT 02/28/2022 11:27 PM EST SPINAL BLOCK Routine 02/28/2022 10:46 PM EST PRIMARY SECTION 02/28/2022 10:41 PM EST Placenta abruptio, first trimester PARTIAL THROMBOPLASTIN TIME STAT 02/28/2022 9:56 PM EST PT / INR STAT 02/28/2022 9:56 PM EST COAGULATION SCREEN STAT 02/28/2022 9:56 PM EST FIBRINOGEN STAT 02/28/2022 9:56 PM EST CBC STAT 02/28/2022 9:56 PM EST EK EKG 12 LEAD STAT 02/28/2022 8:38 PM EST PN US BIOPHYSICAL PROFILE WITHOUT NST SINGLE OR FIRST GESTATION STAT 02/28/2022 11:52 AM EST BB HISTORY CHECK Timed 02/27/2022 6:28 AM EST ANTIBODY SCREEN IGG Timed 02/27/2022 6:28 AM EST ABORH Timed 02/27/2022 6:28 AM EST TYPE AND SCREEN Timed 02/27/2022 6:28 AM EST PN US BPP WITHOUT NST W FOLLOW UP STAT 02/25/2022 11:57 AM EST BB HISTORY CHECK Routine 02/24/2022 3:49 PM EST ANTIBODY SCREEN IGG Routine 02/24/2022 3:49 PM EST ABORH Routine 02/24/2022 3:49 PM EST TYPE AND SCREEN Routine 02/24/2022 3:49 PM EST PN US BIOPHYSICAL PROFILE WITHOUT NST SINGLE OR FIRST GESTATION STAT 02/21/2022 11:16 AM EST BB HISTORY CHECK Timed 02/20/2022 7:01 AM EST ANTIBODY SCREEN IGG Timed 02/20/2022 7:01 AM EST ABORH Timed 02/20/2022 7:01 AM EST TYPE AND SCREEN Timed 02/20/2022 7:01 AM EST PN US BIOPHYSICAL PROFILE WITHOUT NST SINGLE OR FIRST GESTATION STAT 02/18/2022 1:30 PM EST BB HISTORY CHECK Timed 02/17/2022 7:05 AM EST ANTIBODY SCREEN IGG Timed 02/17/2022 7:05 AM EST ABORH Timed 02/17/2022 7:05 AM EST TYPE AND SCREEN Timed 02/17/2022 7:05 AM EST VANCOMYCIN LEVEL TROUGH Timed 02/15/2022 11:38 PM EDT BASIC METABOLIC PANEL Timed 02/15/2022 12:24 PM EDT PN US BIOPHYSICAL PROFILE WITHOUT NST SINGLE OR FIRST GESTATION STAT 02/14/2022 10:08 AM EDT CBC Routine 02/14/2022 6:57 AM EDT CHLAMYDIA/GC BY TMA STAT 02/13/2022 11:22 PM EDT CHLAMYDIA/GC STAT 02/13/2022 11:22 PM EDT STREP B DNA STAT 02/13/2022 11:22 PM EDT IP CONSULT TO PHARMACY Routine 02/13/2022 10:42 PM EDT URINALYSIS STAT 02/13/2022 10:23 PM EDT UA W/REFLEX TO CULTURE STAT 02/13/2022 10:23 PM EDT DRUGS OF ABUSE WITH REFLEX TO CONFIRMATION, URINE STAT 02/13/2022 10:23 PM EDT EXTRA GREGORIO URINE CX STAT 02/13/2022 10:23 PM EDT IP CONSULT TO NEONATOLOGY Routine 02/13/2022 9:41 PM EDT Procedure Note - Ravindra Arias MD - 02/14/2022 1:40 PM EDTThis note is in progress. NEONATOLOGY ATTENDING CONSULT NOTE: Susannah Kyle [id number] I was asked by Dr. Henry to speak with Ms. Kyle and her familyconcerning the potential of her baby prematurely. Ms. Kyle is a 21yo mother at 28 5/7 wks gestation with a maleinfant ( Hank ) that presented PPROM/PTL. She is being treated withlatency antibiotics (erythromycin/vancomycin due to allergy), magnesiumand BMTZ with plans to prolong if possible, but for at least 48hto allow for steroids. Serologies O-POS, GBS-UNK, otherwiseknown and negative. I spoke with Ms. Kyle and her family concerning the risks ofmortality/morbidity associated with at 28-29 weeks'gestation, including : 1) the likely need for respiratory support (initially nCPAP if respiratorystatus allows but expecting the potential need for mechanicalventilation/surfactant replacement in ~25-50% of infants) 2) the risk for bacterial sepsis 3) the need for fluid/electrolyte support 4) the inability to orally feed until 33-35 weeks corrected age 5) the importance of providing mother's own or donor breastmilk to preventNEC -mother plans to provide breast milk and direct breast feed -she was counseled and in agreement with the use of donor milk -recommend immediate hand-expression within 1hr following delivery andpumping q3-4h therafter 6) Need for blood transfusion(s) 7) the risks of longwall headgate operator morbidities including BPD, IVH and ROP We discussed that in many of the surviving infants delivered at 28-29wkGA, neurological development proceeds relatively normally. Especially ifcomplications arise, some can face significant neurologicalcomplications/delays including cerebral palsy and mental handicap. Idescribed the typical NICU course for a 28-29wk infant, with dischargearound the original expected date of confinement, though often 2-3 weekssooner. We would recommend completing the course of BMTZ, and agree withadministration of magnesium for neuroprotection at this time. We will bepresent at delivery for resuscitation. Face-Face time spent: 20min. Ravindra Arias MD 02/14/2022 1:40 PM BB HISTORY CHECK STAT 02/13/2022 8:38 PM EDT ANTIBODY SCREEN IGG STAT 02/13/2022 8:38 PM EDT ABORH STAT 02/13/2022 8:38 PM EDT TYPE AND SCREEN STAT 02/13/2022 8:38 PM EDT HIGH RISK HCV ANTIBODY REFLEX Add-On 02/13/2022 8:38 PM EDT SYPHILIS SCREEN WITH REFLEX RPR QUANT STAT 02/13/2022 8:38 PM EDT HIV AG/AB STAT 02/13/2022 8:38 PM EDT CBC STAT 02/13/2022 8:38 PM EDT ADMIT Routine 02/13/2022 8:29 PM EDT SEP URINALYSIS POC Routine 02/10/2022 2:54 PM EDT Supervision of normal first in second trimester PN US OB FOLLOW UP TRANSABDOMINAL APPROACH EACH GESTATION Routine 02/07/2022 8:57 AM EDT Separation of chorion and amnion membranes, antepartum GENETIC SCANNING 02/06/2022 8:28 AM EDT URINALYSIS POC Routine 01/29/2022 5:14 PM EDT CBC WITH DIFF Routine 01/28/2022 9:49 AM EDT Supervision of normal first , antepartum PREG GLUCOSE SCREEN Routine 01/28/2022 9:49 AM EDT Supervision of normal first , antepartum PN US OB FOLLOW UP TRANSABDOMINAL APPROACH EACH GESTATION Routine 01/24/2022 3:36 PM EDT Separation of chorion and amnion membranes, antepartum SEP URINALYSIS POC Routine 01/23/2022 3:57 PM EDT Supervision of normal first , antepartum PN US OB FOLLOW UP TRANSABDOMINAL APPROACH EACH GESTATION Routine 01/10/2022 10:01 AM EDT Separation of chorion and amnion membranes, antepartum GENETIC SCANNING 01/07/2022 9:41 AM EDT SEP URINALYSIS POC Routine 12/26/2021 3:26 PM EDT Supervision of normal first in second trimester PN US CERVICAL LENGTH W COMPLETE Routine 12/19/2021 8:21 AM EDT Encounter for anatomic survey SCANNED INTELLECTUAL PROPERTY PARALEGAL ULTRASOUND REPORT 12/19/2021 8:20 AM EDT POCT US DETAILED ANATOMY Routine 12/17/2021 2:22 PM EDT Encounter for anatomic survey Small for gestational age (SGA) Placenta previa in second trimester Suspected abnormality affecting management of mother, antepartum, single or unspecified fetus SEP URINALYSIS POC Routine 11/29/2021 1:51 PM EDT Supervision of normal first in second trimester TRICHOMONAS VAGINALIS BY TMA Routine 10/28/2021 4:05 PM EDT Supervision of normal first in second trimester CHLAMYDIA/GC BY TMA Routine 10/28/2021 4:05 PM EDT Supervision of normal first in second trimester TRICHOMONAS VAGINALIS TMA Routine 10/28/2021 4:05 PM EDT Supervision of normal first in second trimester CHLAMYDIA/GC Routine 10/28/2021 4:05 PM EDT Supervision of normal first in second trimester SEP URINALYSIS POC Routine 10/28/2021 3:35 PM EDT Supervision of normal first in second trimester BB HISTORY CHECK Routine 10/12/2021 10:06 AM EDT First trimester screening ANTIBODY SCREEN IGG Routine 10/12/2021 10:06 AM EDT First trimester screening ABORH Routine 10/12/2021 10:06 AM EDT First trimester screening HIV AG/AB Routine 10/12/2021 10:06 AM EDT First trimester screening HEPATITIS B SURFACE ANTIGEN Routine 10/12/2021 10:06 AM EDT First trimester screening SYPHILIS SCREEN WITH REFLEX RPR QUANT Routine 10/12/2021 10:06 AM EDT First trimester screening RUBELLA ANTIBODY IGG Routine 10/12/2021 10:06 AM EDT First trimester screening CBC WITH DIFF Routine 10/12/2021 10:06 AM EDT First trimester screening HEPATITIS C ANTIBODY IGM + IGG Routine 10/12/2021 10:06 AM EDT First trimester screening DRUGS OF ABUSE WITH REFLEX TO CONFIRMATION, URINE Routine 10/12/2021 10:06 AM EDT First trimester screening URINE CULTURE (NO STAIN) Routine 10/12/2021 10:06 AM EDT First trimester screening SCANNED INTELLECTUAL PROPERTY PARALEGAL ULTRASOUND REPORT 09/30/2021 1:42 PM EDT POCT US < 14 WEEKS ABDOMINAL Routine 09/27/2021 2:00 PM EDT with uncertain dates in first trimester HUMAN CHORIONIC GONADOTROPIN QUANTITATIVE Routine 09/03/2021 8:17 AM EDT , unspecified gestational age H. PYLORI BREATH TEST - REF LAB Routine 06/06/2021 3:56 PM EST Postprandial diarrhea Periumbilical abdominal pain CHLAMYDIA/GC BY TMA Routine 06/06/2021 1:47 PM EST Screening for STDs (sexually transmitted diseases) CHLAMYDIA/GC Routine 06/06/2021 1:47 PM EST Screening for STDs (sexually transmitted diseases) HUMAN CHORIONIC GONADOTROPIN QUANTITATIVE Routine 06/06/2021 1:22 PM EST Abnormal uterine bleeding LIPASE LEVEL Routine 06/06/2021 1:22 PM EST Non-intractable vomiting with nausea, unspecified vomiting type AMYLASE LEVEL Routine 06/06/2021 1:22 PM EST Non-intractable vomiting with nausea, unspecified vomiting type T4, FREE (THYROXINE) Routine 06/06/2021 1:22 PM EST Screening for thyroid disorder THYROID STIMULATING HORMONE Routine 06/06/2021 1:22 PM EST Screening for thyroid disorder COMPREHENSIVE METABOLIC PANEL Routine 06/06/2021 1:22 PM EST Well adult exam CBC WITH DIFF Routine 06/06/2021 1:22 PM EST Well adult exam POCT URINE TELCOR Routine 06/06/2021 1:07 PM EST Non-intractable vomiting with nausea, unspecified vomiting type Abnormal uterine bleeding CT HEAD WO CONTRAST STAT 05/05/2021 1:41 AM EST FL SMALL BOWEL SERIES Routine 10/11/2020 10:42 AM EDT Postprandial diarrhea Periumbilical abdominal pain TISSUE TRANSGLUTAMINASE ANTIBODY, IGA -REF LAB Routine 10/11/2020 8:47 AM EDT Postprandial diarrhea Periumbilical abdominal pain CELIAC DISEASE REFLEXIVE CASCADE-REF LAB Routine 10/11/2020 8:47 AM EDT Postprandial diarrhea Periumbilical abdominal pain VITAMIN B12/ FOLIC ACID Routine 05/31/2020 12:01 PM EST Nausea Body aches COMPREHENSIVE METABOLIC PANEL Routine 05/31/2020 12:01 PM EST Nausea Body aches Amenorrhea CBC WITH DIFF Routine 05/31/2020 12:01 PM EST Nausea Body aches Amenorrhea HUMAN CHORIONIC GONADOTROPIN QUANTITATIVE Routine 05/31/2020 12:01 PM EST Amenorrhea URINE CULTURE (NO STAIN) Routine 05/31/2020 11:56 AM EST Nausea POCT CHARITY SARS ANTIGEN Routine 05/31/2020 11:52 AM EST Nausea Body aches POCT INFLUENZA A/B Routine 05/31/2020 11:52 AM EST Nausea Body aches POCT URINE TELCOR Routine 05/31/2020 11:47 AM EST Nausea SEP URINALYSIS POC Routine 05/31/2020 11:45 AM EST XR HAND LEFT PA LATERAL AND OBLIQUE TAWANDA 05/23/2020 7:50 AM EST URINE CULTURE (NO STAIN) Routine 03/30/2020 5:04 PM EST UTI (urinary tract infection), uncomplicated SEP URINALYSIS POC Routine 03/30/2020 4:56 PM EST UTI (urinary tract infection), uncomplicated SCANNED RHYTHM STRIPS 01/11/2020 11:58 AM EDT PATHOLOGY TISSUE REQUEST Routine 01/09/2020 3:42 PM EDT Biliary dyskinesia INTRAOP AIRWAY PLACEMENT Routine 01/09/2020 3:28 PM EDT LAPAROSCOPIC CHOLECYSTECTOMY POSSIBLE OPEN 01/09/2020 3:09 PM EDT Biliary dyskinesia CORONAVIRUS 2019 Routine 01/09/2020 8:17 AM EDT HEPATIC FUNCTION PANEL Timed 01/09/2020 8:05 AM EDT BASIC METABOLIC PANEL Timed 01/09/2020 8:05 AM EDT CBC Timed 01/09/2020 8:05 AM EDT IP CONSULT TO GENERAL SURGERY Routine 01/08/2020 10:23 PM EDT Procedure Note - Holley Hernández MD - 01/09/2020 3:00 PM EDTThis note is in progress. EMERGENCY GENERAL SURGERY CONSULT CONSULTING PHYSICIAN: Holley Hernández M.D. ASSESSMENT AND PLAN Susannah Kyle is a 19 y.o. year old female who I am asked to see for CCof acute abdominal pain. RUQ pain. Dx with biliary disease. Biliarydyskinesia I explained the signs and symptoms of bilary disease to the patient. Iexplained the treatment options, among them laparoscopic cholecystectomy.I explained the risks and benefits of the operation to the patient,including but not limited to the risk of infection of the skin or deeptissues, the risk of bleeding at the skin, abdominal wall, orintrabdominally, the risk of ductal injury, the risk of conversion to openand the risk of post prandial diarrhea. She understands these risks andwished to proceed. We discussed the risk of dyskinesia and the specificrisk of continuing to have pain post cholecystectomy. HISTORY OF PRESENT ILLNESS Susannah Kyle is a 19 y.o. year old female who presents with acomplaint of pain located in the abdomen. The pain is located in the the RUQ and the epigastrium. It radiates tothe the back. The pain is rated as 5 out of ten, ten being the worst painever. The pain is aggravated by food ingestion and 1/2 -1 hour aftermeals. The pain is relieved bynothing. She does admit to having episodesof this pain in the past. See ROS for accompanying GI ROS She does not notice yellow discoloration of her skin or itching. She doesnot notice dark urine. She does not notice hanny colored stools. She doesnot admit to having fever or chills. The patient has had testing, consisting of a CT Of her abdomen and pelvis.I looked at the images myself. She has had a HIDA and I looked at this aswell. Noted the reduced EF. HISTORY Past Medical History: Diagnosis Date Anxiety Asthma Exercise induced bronchospasm 05/24/2014 PARDO (headache) Kidney infection Obesity due to excess calories without serious comorbidity with bodymass index (BMI) in 95th to 98th percentile for age in pediatric patient08/02/2019 Past Surgical History: Procedure Laterality Date ADENOIDECTOMY DENTAL SURGERY TONSILLECTOMY TYMPANOSTOMY TUBE PLACEMENT Allergies Allergen Reactions Penicillins Nausea Only Bactrim [Sulfamethoxazole-Trimethoprim] Rash Omnicef [Cefdinir] Rash Zithromax [Azithromycin] Nausea And Vomiting Social History Socioeconomic History Marital status: Single Tobacco Use Smoking status: Never Smoker Smokeless tobacco: Never Used Substance and Sexual Activity Alcohol use: No Alcohol/week: 0.0 oz Drug use: No Sexual activity: Yes Partners: Male control/protection: OCP Family History Problem Relation Age of Onset Asthma Mother Thyroid Disease Mother Other Mother thyroid Diabetes Maternal Grandfather Heart Disease Maternal Grandfather Hypertension Maternal Grandfather Kidney Disease Maternal Grandfather Kidney Disease Paternal Grandmother Diabetes Paternal Grandfather Heart Disease Paternal Grandfather REVIEW OF SYSTEMS Constitutional: Negative for fever, chills, HENT: Negative for congestion, sore throat Eyes: Negative for pain, redness Respiratory: Negative for cough, chest tightness, shortness of breath Cardiovascular: Negative for chest pain, palpitations Gastrointestinal: see HPI Genitourinary: Negative for dysuria, urgency, frequency Musculoskeletal: Negative for back pain, arthralgias Skin: Negative for rash and wound. Neurological: Negative for dizziness, weakness Hematological: Negative for bruise/bleed easily. Psychiatric/Behavioral: Negative for hallucinations, confusion PHYSICAL EXAMINATION Vitals: 01/08/20199901/08/20 2228 01/09/20 0600 01/09/20 0808 BP: 113/53 144/77 100/54 104/61 BP Location: Right arm Right arm Right arm Patient Position: Semi Fowlers Semi Fowlers Semi Fowlers Pulse: (!) [phone] 81 Resp: 16 16 16 Temp: 98.3 F (36.8 C) 97.5 F (36.4 C) 98.2 F (36.8 C) TempSrc: Oral Oral Oral SpO2: 99% 100% 99% 100% Weight: 192 lb 3.2 oz (87.2 kg) Height: 5' 6 (1.676 m) Constitutional: Oriented to person, place, time. Vital signs are above.Well-developed and well-nourished. Active and cooperative. Non-toxic. Nodistress. Head: Normocephalic and atraumatic. Ears: Right Ear: External ear normal. Left Ear: External ear normal. Nose: nares patent Mouth/Throat: Oropharynx clear and moist. No oropharyngeal exudate Eyes: Conjunctivae and EOM grossly normal. Pupils equal and round. Righteye no discharge. Left eye no discharge. No scleral icterus. Neck: Trachea normal. Neck supple. No tracheal deviation. No mass Cardiovascular: Normal rate Pulmonary/Chest: Effort normal. No accessory muscle usage or stridor. Nodistress. No chest wall tenderness. Abdominal: Soft. No distension. No mass. Epigastric and RUQ tenderness.No rebound. No guarding. No CVA tenderness. No hernia. Musculoskeletal: Normal range of motion. No edema. No tenderness. Neurological: Alert and oriented to person, place, time. No cranial nervedeficit, normal tone. Coordination normal. Skin: Skin warm and dry. No abrasion, no rash noted, not diaphoretic. Nocyanosis or erythema. No pallor. Nails show no clubbing. Psychiatric: Normal mood and affect. Speech normal and behavior is normal. LABS AND RADIOLOGY *I reviewed the following labs and studies. I personally viewed thepertinent images WBC: Lab Results Component Value Date WBC 5.8 01/09/2020 Hemoglobin/Hematocrit: Lab Results Component Value Date HGB 11.7 01/09/2020 HCT 34.7 01/09/2020 BMP: Lab Results Component Value Date NA 138 01/09/2020 K 3.8 01/09/2020 CL 107 01/09/2020 CO2 26 01/09/2020 BUN 6 01/09/2020 CREATININE 0.65 01/09/2020 CALCIUM 8.4 (L) 01/09/2020 Us Appendix Result Date: 12/14/2019 US APPENDIX, 12/14/2019 3:54 PM CLINICAL HISTORY: R10.31-Right lowerquadrant [id number] COMPARISON: CT 06/10/2018. PROCEDURE COMMENTS:Routine sonographic evaluation of the region of interest withrepresentative images sent to PACS along with puddler helper notes. FINDINGS:The appendix is not seen and acute appendicitis cannot be conformed orexcluded. Normal-appearing right ovary is identified measuring 3.3 x 2.2 x2.6 cm. If this clinical concern for appendicitis persists, CT should bemore sensitive. Appendix is not seen and appendicitis cannot be confirmed or excluded. Ifsymptoms persist, CT should be more sensitive.. Normal right ovary isseen. CODE TAWANDA: Results will be conveyed to the patient's care team byRadiology personnel as soon as possible following completion of thisdictation. Nm Hepatobiliary W Gbef Result Date: 01/05/2020 NM HEPATOBILIARY WITH GBEF, 01/05/2020 CLINICAL HISTORY: R11.2-Nauseawith vomiting, [id number]-14-CM R19.7-Diarrhea, [id number]-CMCOMPARISON: None. PROCEDURE COMMENTS: Routine sequential planarhepatobiliary imaging following the intravenous administration of 6 mCi oftechnetium 99m mebrofenin. After gallbladder filling, 1.7 micrograms CCKgiven for ejection fraction calculation. FINDINGS: Immediate images ofthe liver are normal. Normal demonstration of activity within the biliarytree, gallbladder, and small bowel. The EF is 20%. Normal is 35% orgreater. Although there is prompt gallbladder visualization, calculated gallbladderejection fraction of 20% is considered well below the range of normal. - Ct Abd Pel Ed Fast W Contrast Result Date: 12/14/2019 CT ABDOMEN AND PELVIS WITH CONTRAST (FAST), 12/14/2019 7:13 PM CLINICALHISTORY: -RLQ abdominal pain, appendicitis suspected COMPARISON: 2019PROCEDURE COMMENTS: Multi-detector volumetric scanning of the abdomen andpelvis with multiplanar reformatting per expedited protocol. 100 mLIsovue 370 IV. Automated exposure control for dose reduction was used.CTDIvol: 10.5 mGy. DLP: 585 mGy-cm. FINDINGS: Lung bases are clear. Theliver, gallbladder, pancreas, this spleen and adrenals are unremarkable.Kidneys enhance symmetrically without obstruction bilaterally. Bladder iscollapsed, not well evaluated. The small and large bowel are normal incaliber without obstruction or wall thickening. Appendix is normalextending into the right pelvis. No free fluid or suspiciouslymphadenopathy. Vasculature is unremarkable. No suspicious osseouslesion. No acute findings in the abdomen/pelvis. Specifically normal CT appearanceof the appendix extending to the right pelvis. Holley Hernández MD 01/09/2020 ADMIT STAT 01/08/2020 7:53 PM EDT HUMAN CHORIONIC GONADOTROPIN QUANTITATIVE STAT 01/08/2020 6:55 PM EDT LIPASE LEVEL STAT 01/08/2020 6:55 PM EDT COMPREHENSIVE METABOLIC PANEL STAT 01/08/2020 6:55 PM EDT CBC STAT 01/08/2020 6:48 PM EDT SALINE LOCK IV STAT 01/08/2020 6:36 PM EDT NM HEPATOBILIARY W GBEF Routine 01/05/2020 1:33 PM EDT Nausea, vomiting and diarrhea CT ABD PEL ED FAST W CONTRAST STAT 12/14/2019 7:13 PM EDT URINALYSIS STAT 12/14/2019 6:44 PM EDT EXTRA GREGORIO URINE CX STAT 12/14/2019 6:43 PM EDT LIPASE LEVEL Add-On 12/14/2019 5:59 PM EDT HUMAN CHORIONIC GONADOTROPIN QUANTITATIVE STAT 12/14/2019 5:59 PM EDT LACTIC ACID STAT 12/14/2019 5:59 PM EDT COMPREHENSIVE METABOLIC PANEL STAT 12/14/2019 5:59 PM EDT CBC WITH DIFF STAT 12/14/2019 5:59 PM EDT SALINE LOCK IV STAT 12/14/2019 5:36 PM EDT US APPENDIX STAT 12/14/2019 3:54 PM EDT Abdominal pain, RLQ (right lower quadrant) SEP URINALYSIS POC Routine 12/13/2019 4:30 PM EDT UTI (urinary tract infection), uncomplicated CORONAVIRUS 2019 (COVID-19) - REF LAB Routine 2019 1:48 PM EDT Nausea vomiting and diarrhea LIPASE LEVEL Routine 11/09/2019 1:24 PM EDT Nausea vomiting and diarrhea AMYLASE LEVEL Routine 11/09/2019 1:24 PM EDT Nausea vomiting and diarrhea COMPREHENSIVE METABOLIC PANEL Routine 11/09/2019 1:24 PM EDT Nausea vomiting and diarrhea CBC WITH DIFF Routine 11/09/2019 1:24 PM EDT Nausea vomiting and diarrhea POCT URINALYSIS DIPSTICK Routine 08/02/2019 12:08 PM EDT Dysuria CELIAC DISEASE REFLEXIVE CASCADE-REF LAB Routine 08/02/2019 12:00 PM EDT Abdominal bloating ALLERGEN, FOOD, COMMON ADULT PANEL-REF LAB Routine 08/02/2019 12:00 PM EDT Abdominal bloating TISSUE TRANSGLUTAMINASE ANTIBODY, IGA -REF LAB Routine 08/02/2019 12:00 PM EDT Abdominal bloating CHLAMYDIA/GC BY TMA Routine 08/02/2019 11:56 AM EDT Screening for STDs (sexually transmitted diseases) CHLAMYDIA/GC Routine 08/02/2019 11:56 AM EDT Screening for STDs (sexually transmitted diseases) URINE CULTURE (NO STAIN) Routine 08/02/2019 11:56 AM EDT Recurrent UTI (urinary tract infection) HM HOLTER MONITOR RECORDING AND ANALYSIS Routine 02/22/2019 9:48 AM EST Chest pain at rest Tachycardia SCANNED EKG 02/17/2019 3:04 PM EST POCT EKG Routine 02/17/2019 11:44 AM EST Chest pain at rest Tachycardia XR CHEST PA AND LATERAL TAWANDA 02/16/2019 4:04 PM EST HUMAN CHORIONIC GONADOTROPIN QUANTITATIVE STAT 02/16/2019 3:07 PM EST D-DIMER STAT 02/16/2019 3:07 PM EST HEPATIC FUNCTION PANEL STAT 02/16/2019 3:07 PM EST BASIC METABOLIC PANEL STAT 02/16/2019 3:07 PM EST CBC STAT 02/16/2019 3:07 PM EST SALINE LOCK IV STAT 02/16/2019 2:58 PM EST EK EKG 12 LEAD STAT 02/16/2019 2:36 PM EST POCT URINALYSIS DIPSTICK Routine 08/25/2018 11:56 AM EDT Menstrual disorder URINE CULTURE (NO STAIN) Routine 07/27/2018 4:20 PM EDT UTI (urinary tract infection), uncomplicated POCT URINALYSIS DIPSTICK Routine 07/27/2018 4:19 PM EDT Pelvic pain CT ABDOMEN PELVIS W CONTRAST Routine 06/10/2018 2:37 PM EST Abdominal pain, RLQ Abdominal pain, RLQ (right lower quadrant) URINALYSIS STAT 06/02/2018 5:20 PM EST EXTRA GREGORIO URINE CX STAT 06/02/2018 5:[address] ABD PEL ED FAST W CONTRAST STAT 06/02/2018 5:18 PM EST HCG QUALITATIVE STAT 06/02/2018 4:21 PM EST COMPREHENSIVE METABOLIC PANEL STAT 06/02/2018 4:21 PM EST CBC WITH DIFF STAT 06/02/2018 4:21 PM EST SALINE LOCK IV STAT 06/02/2018 4:10 PM EST US APPENDIX STAT 06/02/2018 3:42 PM EST Abdominal pain, RLQ (right lower quadrant) POCT URINALYSIS DIPSTICK Routine 06/02/2018 1:30 PM EST Flank pain CHLAMYDIA/GC BY TMA Routine 02/01/2018 3:37 PM EDT Dysuria CHLAMYDIA/GC Routine 02/01/2018 3:37 PM EDT Dysuria C-REACTIVE PROTEIN Routine 02/01/2018 1:19 PM EDT Arthralgia, unspecified joint SEDIMENTATION RATE AUTOMATED Routine 02/01/2018 1:19 PM EDT Arthralgia, unspecified joint CBC Routine 02/01/2018 1:19 PM EDT Irregular menses Obesity, Class I, BMI 30-34.9 COMPREHENSIVE METABOLIC PANEL Routine 02/01/2018 1:19 PM EDT Obesity, Class I, BMI 30-34.9 LIPID SCREEN Routine 02/01/2018 1:19 PM EDT Obesity, Class I, BMI 30-34.9 THYROID STIMULATING HORMONE Routine 02/01/2018 1:19 PM EDT Obesity, Class I, BMI 30-34.9 URINE CULTURE (NO STAIN) Routine 02/01/2018 12:50 PM EDT Dysuria POCT URINE Routine 02/01/2018 12:49 PM EDT Irregular menses POCT URINALYSIS DIPSTICK Routine 02/01/2018 12:07 PM EDT Dysuria US PELVIS AND TRANSVAGINAL NON OB COMPLETE Routine 05/19/2017 10:00 AM EST Dysmenorrhea in adolescent Menorrhagia with irregular cycle POCT INFLUENZA A/B Routine 04/27/2017 4:18 PM EST Acute bronchitis due to Mycoplasma pneumoniae XR WRIST LEFT PA LATERAL AND OBLIQUE TAWANDA 02/16/2017 5:02 PM EST CALPROTECTIN, FECAL - REF LAB Routine 12/11/2016 3:26 PM EDT Diarrhea, unspecified type STOOL CULTURE (NO STAIN) Routine 12/11/2016 3:26 PM EDT Diarrhea, unspecified type SHIGA TOXIN Routine 12/11/2016 3:26 PM EDT Diarrhea, unspecified type C DIFF TOXIN DNA Routine 12/11/2016 3:26 PM EDT Diarrhea, unspecified type XR FOOT LEFT AP LATERAL AND OBLIQUE TAWANDA 11/01/2016 7:31 PM EDT XR ANKLE LEFT AP LATERAL AND OBLIQUE TAWANDA 11/01/2016 7:30 PM EDT US RIGHT UPPER QUADRANT STAT 08/30/2016 9:47 AM EDT Abdominal pain, RUQ (right upper quadrant) Nausea XR FOOT LEFT AP LATERAL AND OBLIQUE TAWANDA 07/13/2016 6:04 PM EDT XR ANKLE LEFT AP LATERAL AND OBLIQUE TAWANDA 07/13/2016 6:03 PM EDT URINE CULTURE (NO STAIN) Routine 05/14/2016 10:03 AM EST Dysuria POCT URINALYSIS DIPSTICK Routine 05/14/2016 10:[address] HEAD WO CONTRAST STAT 04/17/2016 11:55 PM EST DIFFERENTIAL STAT 04/17/2016 11:30 PM EST CREATINE KINASE STAT 04/17/2016 11:30 PM EST CBC WITH DIFF STAT 04/17/2016 11:30 PM EST COMPREHENSIVE METABOLIC PANEL STAT 04/17/2016 11:30 PM EST XR CHEST PA AND LATERAL Routine 01/21/2016 2:01 PM EDT SOB (shortness of breath) Chest tightness Wheezing XR WRIST RIGHT PA LATERAL AND OBLIQUE TAWANDA 11/26/2015 9:[address] ABDOMEN PELVIS WO ORAL OR IV CONTRAST STAT 09/22/2015 5:58 PM EDT URINALYSIS POC Routine 09/22/2015 4:16 PM EDT UA MICROSCOPIC Routine 09/22/2015 4:16 PM EDT DIFFERENTIAL STAT 09/22/2015 3:50 PM EDT HCG QUALITATIVE STAT 09/22/2015 3:50 PM EDT CBC WITH DIFF STAT 09/22/2015 3:50 PM EDT WOUND CULTURE (STAIN INCLUDED) Routine 08/24/2015 4:41 PM EDT Skin infection Abscess of axilla, left CORTISOL Routine 06/20/2015 8:56 AM EST Family history of Bergen's disease MRI BRAIN WO CONTRAST Routine 06/04/2015 4:08 PM EST Slurred speech Word finding difficulty CT ABDOMEN PELVIS W CONTRAST Routine 05/03/2015 4:17 PM EST DIFFERENTIAL STAT 05/03/2015 1:15 PM EST LIPASE LEVEL STAT 05/03/2015 1:15 PM EST HEPATIC FUNCTION PANEL STAT 05/03/2015 1:15 PM EST HCG QUALITATIVE STAT 05/03/2015 1:15 PM EST BASIC METABOLIC PANEL STAT 05/03/2015 1:15 PM EST CBC WITH DIFF STAT 05/03/2015 1:15 PM EST POCT URINALYSIS DIPSTICK Routine 05/03/2015 12:04 PM EST Abdominal pain, RLQ (right lower quadrant) US PELVIS NON OB COMPLETE Routine 04/30/2015 11:02 AM EST Pelvic pain in female US RIGHT UPPER QUADRANT Routine 04/30/2015 10:56 AM EST Abdominal pain, RUQ (right upper quadrant) SCANNED EKG 03/14/2015 8:59 AM EST EK EKG 12 LEAD STAT 03/12/2015 8:41 PM EST .GRPA RESULTS STAT 03/12/2015 8:30 PM EST STREP SCREEN STAT 03/12/2015 8:30 PM EST XR CHEST PA AND LATERAL TAWANDA 03/12/2015 8:11 PM EST URINE CULTURE (NO STAIN) Routine 02/22/2015 1:49 PM EST Burning with urination POCT URINALYSIS DIPSTICK Routine 02/22/2015 1:47 PM EST Burning with urination DIFFERENTIAL Routine 08/09/2014 4:09 PM EDT EBV VIRAL CAPSID ANTIBODIES Routine 08/09/2014 4:09 PM EDT Headache Fatigue CBC WITH DIFF Routine 08/09/2014 4:09 PM EDT Headache Fatigue XR WRIST RIGHT PA LATERAL AND OBLIQUE Routine 07/14/2014 1:21 PM EDT Wrist pain, acute, right POCT WRIST Routine 07/14/2014 11:28 AM EDT Wrist pain, acute, right POCT WRIST Routine 07/07/2014 3:12 PM EDT Wrist pain, acute, right D-DIMER STAT 06/21/2014 6:30 PM EDT POCT URINE TELCOR Routine 05/24/2014 2:32 PM EST URINALYSIS POC Routine 05/24/2014 2:31 PM EST POCT FOOT & TOES R L Routine 03/07/2013 12:14 PM EST Foot pain XR FOOT LEFT AP LATERAL AND OBLIQUE TAWANDA 03/02/2013 5:46 PM EST XR ANKLE LEFT AP LATERAL AND OBLIQUE TAWANDA 03/02/2013 5:46 PM EST XR CLAVICLE RIGHT TAWANDA 01/04/2013 8:48 PM EDT XR WRIST RIGHT PA LATERAL AND OBLIQUE TAWANDA 01/04/2013 8:48 PM EDT XR FOOT RIGHT AP LATERAL AND OBLIQUE TAWANDA 06/15/2012 6:09 PM EST SCANNED LABS 03/24/2012 12:00 AM EST SCANNED RADIOLOGY REPORT 03/24/2012 12:00 AM EST SCANNED RADIOLOGY REPORT 03/03/2012 12:00 AM EST SCANNED OR REPORT 09/17/2011 12:00 AM EDT SCANNED RADIOLOGY REPORT 08/04/2011 12:00 AM EDT DIFFERENTIAL STAT 07/24/2011 6:37 PM EDT CBC WITH DIFF STAT 07/24/2011 6:37 PM EDT URINALYSIS Routine 07/24/2011 5:33 PM EDT URINE CULTURE (NO STAIN) STAT 07/24/2011 5:33 PM EDT .GRPA RESULTS STAT 07/24/2011 5:22 PM EDT STREP SCREEN STAT 07/24/2011 5:22 PM EDT SCANNED LABS 07/02/2011 8:38 AM EDT URINE CULTURE (NO STAIN) STAT 07/01/2011 7:17 PM EDT DIFFERENTIAL STAT 07/01/2011 6:50 PM EDT CBC WITH DIFF STAT 07/01/2011 6:50 PM EDT URINALYSIS STAT 07/01/2011 6:27 PM EDT POCT URINALYSIS DIPSTICK STAT 07/01/2011 6:25 PM EDT XR FOOT RIGHT AP LATERAL AND OBLIQUE TAWANDA 05/26/2011 5:16 PM EST XR FOOT RIGHT AP LATERAL AND OBLIQUE TAWANDA 02/27/2011 10:48 AM EST POCT FOOT & TOES R L Routine 02/27/2011 9:51 AM EST Ankle pain Foot injury URINE CULTURE (NO STAIN) Routine 01/02/2011 8:23 AM EDT UTI (lower urinary tract infection) POCT URINALYSIS DIPSTICK Routine 01/02/2011 8:07 AM EDT Dysuria URINE CULTURE (NO STAIN) Routine 03/06/2010 9:42 PM EST Urinary tract infection, site not specified SCANNED LABS 11/28/2009 12:00 AM EDT .GRPA RESULTS STAT 11/26/2009 6:35 PM EDT STREP SCREEN STAT 11/26/2009 6:35 PM EDT SCANNED OR REPORT STL 08/09/2009 12:00 AM EDT US RENAL SONOGRAPHY Routine 02/25/2005 7:40 AM EST Results * (ABNORMAL) THYROID PEROXIDASE (TPO) ANTIBODY (11/29/2024 2:34 PM EDT) TPO Ab 38.10(H) <=5.59 IU/mL 11/30/2024 6:00 AM EDT [facility] VENOUS BLOOD / Unknown Venipuncture / Unknown 11/29/2024 2:34 PM EDT 11/29/2024 2:34 PM EDT us Komal Barcenas VENDING ROUTE DRIVER IMMUNOLOGY ORDERABLES Final Result [facility] [address] [place] [address] * TSH REFLEX TO FT4 (11/29/2024 2:34 PM EDT) [facility] TSH Reflex 1.570 0.270 - 4.200 mcIU/mL 11/30/2024 12:14 AM EDT PREFERRED LAB [facility], [facility] Blood VENOUS BLOOD / Unknown Venipuncture / Unknown 11/29/2024 2:34 PM EDT 11/29/2024 2:34 PM EDT Narrative PREFERRED LAB [facility], [facility] - 11/30/2024 12:14 AM EDT Ingestion of aisha doses of biotin (>5 mg/day) taken within 8 hours of drawing blood sample can interfere with this immunoassay test. Komal Barcenas APRN CHEMISTRY ORDERABLES Final Result [facility]REF[facility], [address] , [place] [address] * CBC WITH DIFF (11/29/2024 2:34 PM EDT) Only the most recent of19 resultswithin the time period is included. [facility] WBC 7.1 3.7 - 10.3 x10(3)/mcL 11/29/2024 9:10 PM EDT PREFERRED [facility], [facility] RBC 4.70 3.90 - 5.20 x10(6)/mcL 11/29/2024 9:10 PM EDT [facility] Hgb 13.8 11.2 - 15.7 g/dL 11/29/2024 9:10 PM EDT [facility] Hct 43.0 34.0 - 45.0 % 11/29/2024 9:10 PM EDT [facility] MCV 91.5 80.0 - 100.0 fL 11/29/2024 9:10 PM EDT [facility] MCH 29.4 26.0 - 34.0 pg 11/29/2024 9:10 PM EDT [facility] MCHC 32.1 30.7 - 35.5 g/dL 11/29/2024 9:10 PM EDT [facility] RDW 12.8 <=14.9 % 11/29/2024 9:10 PM EDT [facility] Platelet 323 155 - 369 x10(3)/[facility] 11/29/2024 9:10 PM EDT [facility] MPV 10.2 8.8 - 12.5 fL 11/29/2024 9:10 PM EDT [facility] Neut Percent 55.2 % 11/29/2024 9:10 PM EDT [facility] Comment:Neutrophils equals s egs plus bands Imm Gran% 0.3 % 11/29/2024 9:10 PM EDT [facility] Comment:Automated count of m etamyelocytes, myelocytes and promyelocytes. Lymph Percent 34.9 % 11/29/2024 9:10 PM EDT [facility] [place] Percent 8.4 % 11/29/2024 9:10 PM EDT [facility] Eos Percent 1.1 % 11/29/2024 9:10 PM EDT [facility] Baso Percent 0.1 % 11/29/2024 9:10 PM EDT [facility] Neut # 3.9 1.6 - 6.1 x10(3)/mcL 11/29/2024 9:10 PM EDT [facility] Comment:Neutrophils equals s egs plus bands IMMGRAN# 0.0 0.0 - 0.1 x10(3)/mcL 11/29/2024 9:10 PM EDT [facility] Comment:Automated count of m etamyelocytes, myelocytes and promyelocytes. An absolute IG <0.1 is reported as 0.0. Lymph # 2.5 1.2 - 3.9 x10(3)/mcL 11/29/2024 9:10 PM EDT [facility] [place] # 0.6 0.3 - 0.9 x10(3)/mcL 11/29/2024 9:10 PM EDT [facility] Eos# 0.1 0.0 - 0.5 x10(3)/mcL 11/29/2024 9:10 PM EDT [facility] Baso # 0.0 0.0 - 0.1 x10(3)/mcL 11/29/2024 9:10 PM EDT [facility] Blood VENOUS BLOOD / Unknown Venipuncture / Unknown 11/29/2024 2:34 PM EDT 11/29/2024 2:34 PM EDT [facility] HEMATOLOGY ORDERABLES Final Result Performing Organization Address [facility] Phone Number [facility] [employer] [address] [facility] , [place] [id number] * T3 FREE (11/29/2024 2:34 PM EDT) Only the most recent of2 resultswithin the time period is included. T3 Free 3.50 2.00 - 4.40 pg/mL 11/30/2024 12:14 AM EDT [facility] Blood VENOUS BLOOD / Unknown Venipuncture / Unknown 11/29/2024 2:34 PM EDT 11/29/2024 2:34 PM EDT Narrative [facility] - 11/30/2024 12:14 AM EDT Ingestion of aisha doses of biotin (>5 mg/day) taken within 8 hours of drawing blood sample can interfere with this immunoassay test. [facility] CHEMISTRY ORDERABLES Final Result Performing Organization Address [facility] Phone Number [facility] [address] [facility] , [place] [address] * LIPID SCREEN (11/29/2024 2:34 PM EDT) Only the most recent of2 resultswithin the time period is included. Cholesterol 133 <200 mg/dL 11/30/2024 12:14 AM EDT [facility] Comment: < 200 Desirable 200 - 239 Borderline High >= 240 High Triglyceride 105 <150 mg/dL 11/30/2024 12:14 AM EDT [facility] Comment: < 150 Normal 150 - 199 Borderline High 200 - 499 High >= 500 Very High HDL 43 >=40 mg/dL 11/30/2024 12:14 AM EDT [facility] [employer] [facility] Comment: > 60 Optimal 40 - 60 Acceptable < 40 Low LDL Calculated 71 <100 mg/dL 11/30/2024 12:14 AM EDT [employer] Comment: < 100 Optimal 100 - 129 Near or above optimal 130 - 159 Borderline High 160 - 189 High >= 190 Very High The National Institutes of Health (NIH) equation is used for all lipid panels that report calculated LDL (LDL-C). Non-HDL-C Calculated 90 <=129 mg/dL 11/30/2024 12:14 AM EDT [facility], [facility] Comment: <130 Desirable 130-159 Above Desirable 160-189 Borderline High 190-219 High >= 220 Very High Fasting Specimen? No None 025 12:14 AM EDT [facility], [facility] Blood VENOUS BLOOD / Unknown Venipuncture / Unknown 11/29/2024 2:34 PM EDT 11/29/2024 2:34 PM EDT Komal Barcenas VENDING ROUTE DRIVER CHEMISTRY ORDERABLES Final Result [facility], [facility] [address] [facility] , [place] [address] * COMPREHENSIVE METABOLIC PANEL (11/29/2024 2:34 PM EDT) Only the most recent of9 resultswithin the time period is included. Sodium 138 136 - 145 mmol/L 11/30/2024 12:14 AM EDT [facility]REFERR[facility] [employer] Potassium 4.0 3.5 - 5.0 mmol/L 11/30/2024 12:14 AM EDT [facility] Chloride 102 98 - 107 mmol/L 11/30/2024 12:14 AM EDT [facility] [employer] Total CO2 25 22 - 29 mmol/L 11/30/2024 12:14 AM EDT [facility] [employer] Anion Gap 11 7 - 16 mmol/L 11/30/2024 12:14 AM EDT [facility] [employer] Calcium 9.5 8.6 - 10.4 mg/dL 11/30/2024 12:14 AM EDT [facility] [employer] Glucose Lvl 82 70 - 99 mg/dL 11/30/2024 12:14 AM EDT [facility] BUN 8 6 - 20 mg/dL 11/30/2024 12:14 AM EDT [facility], [facility] Creatinine 0.66 0.51 - 1.30 mg/dL 11/30/2024 12:14 AM EDT [facility], [facility] Albumin 4.3 3.5 - 5.2 gm/dL 11/30/2024 12:14 AM EDT [facility], [facility] Total Protein 7.6 6.4 - 8.3 gm/dL 11/30/2024 12:14 AM EDT [facility], [facility] Bili Total 0.4 0.2 - 1.3 mg/dL 11/30/2024 12:14 AM EDT [facility]ERRED [facility], [facility] ALT 11 <=41 U/L 11/30/2024 12:14 AM EDT [facility] AST 15 <=40 U/L 11/30/2024 12:14 AM EDT [facility] Alk Phos 83 36 - 123 U/L 11/30/2024 12:14 AM EDT [facility], [facility] eGFR (CKD-EPIcr 2020) 126 >=60 mL/min/1.7 3 m2 11/30/2024 12:14 AM EDT [facility] Comment:Estimated GFR was ca lculated using the CKD-EPIcr (2020) equation refit without race. The equation is recommended by the [employer] - [employer] Task Force. Blood VENOUS BLOOD / Unknown Venipuncture / Unknown 11/29/2024 2:34 PM EDT 11/29/2024 2:34 PM EDT us Komal Barcenas VENDING ROUTE DRIVER CHEMISTRY ORDERABLES Final Result [facility], [facility] [address] [facility] , [place] [address] * US THYROID (11/24/2024 10:42 AM EDT) [...] CLINICAL HISTORY: Thyroid nodule(s). E07.9-Disorder of thyroid, [id number]. COMPARISON: None. PROCEDURE COMMENTS: Sonographic evaluation of [...] CLINICAL HISTORY: Thyroid nodule(s). E07.9-Disorder of thyroid, [id number]. COMPARISON: None. PROCEDURE COMMENTS: Sonographic evaluation of [...] office of the ordering clinician. us Komal Swapna VENDING ROUTE DRIVER IMG US ORDERABLES Final Res ult * SEP CHARITY FLU+SARS ANTIGEN (05/17/2024 2:15 PM EST) Influenza A Antigen Negative Negative 05/17/2024 2:32 PM EST [facility] [place] Influenza B Antigen Negative Negative 05/17/2024 2:32 PM EST [facility] [place] SARS Antigen Negative Negative 05/17/2024 2:32 PM EST [facility] [place] Swab SPECIMEN FROM NASOPHARYNGEAL STRUCTURE / Unknown 05/17/2024 2:15 PM EST 05/17/2024 2:32 PM EST us Komal Barcenas VENDING ROUTE DRIVER POINT OF CARE TEST ORDERABL ES Final Result BHAVNA [place] [address] [place] [address] * DRUGS OF ABUSE WITH REFLEX TO CONFIRMATION, URINE (2023 9:39 AM EDT) Only the most recent of4 resultswithin the time period is included. 6 AM (Heroin) Absent Cutoff 10 ng/mL 2023 11:23 AM EDT [facility] Amphetamines Absent Cutoff 500 ng/mL 2023 11:23 AM EDT [facility] Barbiturates Absent Cutoff 200 ng/mL 2023 11:23 AM EDT [facility] Benzodiazepines Absent Cutoff 200 ng/mL 2023 11:23 AM EDT [facility] Buprenorphine Absent Cutoff 5 ng/mL 2023 11:23 AM EDT [facility] Cannabinoid Metabolite Absent Cutoff 50 ng/mL 2023 11:23 AM EDT [facility] Cocaine Metabolite Absent Cutoff 150 ng/mL 2023 11:23 AM EDT [facility] Fentanyl Absent Cutoff 2 ng/mL 2023 11:23 AM EDT [facility] Methadone and Metabolite Absent Cutoff 300 ng/mL 2023 11:23 AM EDT [facility] Opiate Absent Cutoff 300 ng/mL 2023 11:23 AM EDT [facility] Oxycodone Lvl Absent Cutoff 100 ng/mL 2023 11:23 AM EDT [facility] Urine Creatinine 47.7 mg/dL 11/10/19 11:23 AM EDT [employer] Comment: Greater than 20: Consistent with valid sample Greater than 2 but less than 20: Possible dilution Less than 2: Questionable valid sample Urine URINE SPECIMEN COLLECTION / Unknown 2023 9:39 AM EDT 2023 9:45 AM EDT Narrative [facility] - 2023 11:23 AM EDT These drug classes have been qualitatively screened by immunoassay and are for medical purposes only. Results should not be used for non-medical purposes. Results reported as presumptive positive will be sent for confirmation. Due to possible factors, such as, dilute/adulterated urine, concentration of drug/metabolite being below the cut-off, or antibody specificity of test reagent, a negative result does not rule out drug use. These results are only valid for urine specimens. Any contamination with vaginal pool/amniotic fluid could cause erroneous results. us John Kim MD URINE ORDERABLES Final Result Performing Organization Address [facility] Co de Phone Number [facility] [address] [place] [address] , [place] [phone] [facility] [address] [place], [place] [id number] * HIV AG/AB (11/09/2023 10:04 AM EDT) Only the most recent of4 resultswithin the time period is included. HIV Ag/AB Non-Reactiv e Non-Reacti ve 11/09/2023 3:08 PM EDT [facility] Blood VENOUS BLOOD / Unknown Venipuncture / Unknown 11/09/2023 10:04 AM EDT 11/09/2023 10:04 AM EDT John Kim MD IMMUNOLOGY ORDERABLES Final Res ult Performing Organization Address City/[facility]/ZIP Co de Phone Number [facility] [address] [place] [address] , [place] [address] * BB HISTORY CHECK (11/09/2023 10:04 AM EDT) Only the most recent of8 resultswithin the time period is included. BB HISTORY CHECK (1) Previous History OK 11/09/2023 2:12 PM EDT [facility] Blood VENOUS BLOOD / Unknown Venipuncture / Unknown 11/09/2023 10:04 AM EDT 11/09/2023 10:04 AM EDT us John Kim MD BLOOD BANK ORDERABLES Final Res ult Performing Organization Address City/[facility]/ZIP Co de Phone Number PSYCHIATRIC BLOOD BANK [address] [place] [address] * SYPHILIS SCREEN WITH REFLEX RPR QUANT (11/09/2023 10:04 AM EDT) Only the most recent of4 resultswithin the time period is included. Trep Ab Index 0.05 <=0.99 Index Value 11/09/2023 3:07 PM EDT [facility] Comment: < 1.00 - Non-Reactive >=1.00 - Reactive NOTE: All reactive results will be reflexed to Quantitative Non-Treponemal(RPR)test. Blood VENOUS BLOOD / Unknown Venipuncture / Unknown 11/09/2023 10:04 AM EDT 11/09/2023 10:04 AM EDT us John Kim MD CHEMISTRY ORDERABLES Final Resu lt Performing Organization Address [facility] Co de Phone Number [facility] [address] [place] [address] , [place] [address] * HIGH RISK HCV ANTIBODY REFLEX (11/09/2023 10:04 AM EDT) Only the most recent of2 resultswithin the time period is included. Hep C Ab Non-Reactiv e Non-Reacti ve 11/09/2023 3:08 PM EDT [facility] Blood VENOUS BLOOD / Unknown Venipuncture / Unknown 11/09/2023 10:04 AM EDT 11/09/2023 10:04 AM EDT us John Kim MD IMMUNOLOGY ORDERABLES Final Res ult [facility] 1 [facility] , [address] [place] [phone] * ABORH (11/09/2023 10:04 AM EDT) Only the most recent of8 resultswithin the time period is included. ABORH Int O POS 11/09/2023 2:4 2 PM EDT PSYCHIATRIC BLOOD [facility] Blood VENOUS BLOOD / Unknown Venipuncture / Unknown 11/09/2023 10:04 AM EDT 11/09/2023 10:04 AM EDT John Kim MD BLOOD BANK ORDERABLES Final Res ult Performing Organization Address City/[facility]/ZIP Co de Phone Number PSYCHIATRIC BLOOD [address] [address] * ANTIBODY SCREEN IGG (11/09/2023 10:04 AM EDT) Only the most recent of8 resultswithin the time period is included. ABSC IgG Int Negative 11/09/2023 2:48 PM EDT PSYCHIATRIC BLOOD [facility] Blood VENOUS BLOOD / Unknown Venipuncture / Unknown 11/09/2023 10:04 AM EDT 11/09/2023 10:04 AM EDT John Kim MD BLOOD BANK ORDERABLES Final Res ult Performing Organization Address City/[facility] Co de Phone Number [address] [address] * (ABNORMAL) SEP URINALYSIS POC (11/02/2023 10:12 AM EDT) Only the most recent of21 resultswithin the time period is included. UA Color POC Yellow Color 11/02/2023 10:15 AM EDT [facility] UA Appear POC Clear Clear 11/02/2023 10:15 AM EDT [facility] UA Gluc POC Negative Negative mg/dL 11/02/2023 10:15 AM EDT [facility] UA Bili POC Negative Negative 11/02/2023 10:15 AM EDT [facility] UA Ketones POC Negative Negative mg/dL 11/02/2023 10:15 AM EDT [facility] UA SG POC 1.020 1.001 - 1.035 no units 11/02/2023 10:15 AM EDT [facility] UA Blood POC Negative Negative 11/02/2023 10:15 AM EDT [facility] UA pH POC 7.0 5.0 - 8.0 pH 11/02/2023 10:15 AM EDT [facility] UA Protein POC Negative Negative mg/dL 11/02/2023 10:15 AM EDT [facility] UA Urobilinogen POC 0.2 0.2, 1.0 11/02/2023 10:15 AM EDT [facility] UA Nitrite POC Negative Negative 11/02/2023 10:15 AM EDT [facility] UA Leuk Est POC Trace(A) Negative 10:15 AM EDT [facility] Urine URINE SPECIMEN COLLECTION / Unknown 11/02/2023 10:12 AM EDT 11/02/2023 10:15 AM EDT John Kim MD POINT OF CARE TEST ORDERABLES F inal Result [facility] [address] [place] [address] * STREP B DNA (10/20/2023 10:43 AM EDT) Only the most recent of2 resultswithin the time period is included. Pathologist [facility] Strep B DNA Not Detected Not Detected 11:02 AM EDT [facility] [employer], [facility] Swab RECTUM AND VAGINA, CS / Unknown 10/20/2023 10:43 AM EDT 10/20/2023 10:43 AM EDT Narrative [facility] - 10/22/2023 11:02 AM EDT TEST INFORMATION: This qualitative assay utilizes molecular amplification to detect a portion of the Streptococcus agalactiae genome and is intended for a screen of antepartum women in 35-37 weeks gestation. A negative result does not rule out the presence the Group B Strep in concentrations below the limit of detection for the assay. John Kim MD MICROBIOLOGY - GENERAL ORDERABL ES Final Result [facility] [address] [facility] , [address] [place] [id number] * CHLAMYDIA/GC BY TMA (10/20/2023 10:43 AM EDT) Only the most recent of6 resultswithin the time period is included. Chlamydia trachomatis Not Detected Not Detected 10/21/2023 2:34 AM EDT [facility] Neisseria gonorrhoeae Not Detected Not Detected 10/21/2023 2:34 AM EDT [facility] Swab SPECIMEN FROM UTERINE CERVIX / Unknown 10/20/2023 10:43 AM EDT 10/20/2023 10:43 AM EDT [facility] - 10/21/2023 2:34 AM EDT Testing methodology is phone technician mediated amplification (TMA) using the Aptima Combo 2 assay from [employer]. A negative result does not completely rule out a Chlamydia trachomatis or Neisseria gonorrhoeae infection due to potential inhibitors or levels present below the limit of detection by this assay. Results are dependent on proper collection and transport of specimen. This test is indicated for medical purposes only and should not be used for legal or forensic purposes. The performance characteristics of this assay were validated by the testing laboratory. This assay is FDA cleared to test the following specimens: clinician-collected endocervical, vaginal, male urethral swab specimens, rectal swabs, and throat/pharyngeal swabs; patient collected vaginal specimens within a clinic setting; Thin Prep Specimens in PreservCyt Solution; and first-stream, unpreserved male and female urine specimens. Detailed methodology is available upon request. John Kim MD MICROBIOLOGY - GENERAL ORDERABL ES Final Result [facility] [employer] [employer] [address] [facility] , [place] [address] * PN US OB FOLLOW UP TRANSABDOMINAL APPROACH EACH GESTATION (10/19/2023 10:06 AM EDT) Only the most recent of5 resultswithin the time period is included. Anatomical Region Laterality Modality Pelvis Ultrasound 10/19/2023 9:42 AM EDT us Chastity Henry MD [facility] ORDERABLES Final Result * PN US BIOPHYSICAL PROFILE WITHOUT NST SINGLE OR FIRST GESTATION (09/28/2023 7:30 PM EDT) Only the most recent of5 resultswithin the time period is included. Anatomical Region Laterality Modality Pelvis Ultrasound 09/28/2023 6:54 PM EDT us Mfowelu Simon Borrego DO IMG ORDERABLES F inal Result * URINALYSIS POC (09/28/2023 5:04 PM EDT) Only the most recent of4 resultswithin the time period is included. UA Color POC Yellow Color 09/28/2023 5:07 PM EDT [facility] UA Appear POC Clear Clear 09/28/2023 5:07 PM EDT [facility] UA Blood POC Negative Negative 09/28/2023 5:07 PM EDT [facility] UA pH POC 7.0 5.0 - 8.0 pH 09/28/2023 5:07 PM EDT [facility] UA Urobilinogen POC 0.2 0.2, 1.0 09/28/2023 5:07 PM EDT [facility] UA Nitrite POC Negative Negative 09/28/2023 5:07 PM EDT [facility] UA Leuk Est POC Negative Negative 5:07 PM EDT [facility] UA SG POC 1.015 1.001 - 1.035 no units 09/28/2023 5:07 PM EDT [facility] UA Gluc POC Negative Negative mg/dL 09/28/2023 5:07 PM EDT [facility] UA Protein POC Negative Negative mg/dL 09/28/2023 5:07 PM EDT [facility] UA Ketones POC Negative Negative mg/dL 09/28/2023 5:07 PM EDT [facility] Urine URINE SPECIMEN COLLECTION / Unknown 09/28/2023 5:04 PM EDT 09/28/2023 5:07 PM EDT Celina Jimenez MD POINT OF CARE TEST O RDERABLES Final Result Performing Organization Address City/[facility]/ZIP Co de Phone Number [address] [address] * PN US CERVICAL LENGTH W FOLLOW UP (09/16/2023 8:52 AM EDT) Anatomical Region Laterality Modality Pelvis Ultrasound 09/16/2023 7:57 AM EDT John Kim MD IMG ORDERABLES Final Result * PREG GLUCOSE SCREEN (08/10/2023 1:19 PM EDT) Only the most recent of2 resultswithin the time period is included. Preg Screen 79 <130 mg/dL 08/10/2023 6:10 PM EDT [facility] Blood VENOUS BLOOD / Unknown Venipuncture / Unknown 08/10/2023 1:19 PM EDT 08/10/2023 1:19 PM EDT Narrative [facility] - 08/10/2023 6:10 PM EDT Choice of screening threshold may vary from 130 mg/dL to 140 mg/dL. ACOG recommends 3 Hr diagnostic oral glucose tolerance test following positive screen. us John Kim MD CHEMISTRY ORDERABLES Final Resu lt [facility] [address] [facility] [address], [place] [address] * PN US CERVICAL LENGTH W COMPLETE (06/29/2023 2:52 PM EDT) Only the most recent of2 resultswithin the time period is included. Anatomical Region Laterality Modality Pelvis Ultrasound 06/29/2023 1:09 PM EDT Chastity Arevalo CNM IMG ORDERABLES Fi nal Result * URINE CULTURE (NO STAIN) (06/10/2023 12:02 PM EST) Only the most recent of14 resultswithin the time period is included. Culture No growth at 30 hours. 06/12/2023 6:00 AM EST [facility] Urine URINE SPECIMEN COLLECTION, CLEAN CATCH / Unknown 06/10/2023 12:02 PM EST 06/10/2023 12:02 PM EST Tatiana Diaz VENDING ROUTE DRIVER MICROBIOLOGY - GENERAL OR DERABLES Final Result [facility] [address] [place] [address] , [place] [address] * 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 CYTOLOGY REQUEST (PAP ONLY) (05/13/2023 11:41 AM EST) CASE REPORT Gynecologic Cytology Report Case: [id number] Authorizing Provider: Chastity Arevalo CNM Collected: 05/13/2023 1141 Ordering Location: [facility] Edg Received: 05/13/2023 1141 First Screen: Millie Mcguire CT Specimen: LIQUID-BASED PAP - CERVICAL/ENDOCERV ICAL, Cervix, Endocervical 05/21/2023 4:20 PM EST [facility] PAP FINAL DIAGNOSIS Negative for intraepithelial lesion or malignancy 05/21/2023 4:20 PM EST [facility] at 1620 EST MICROSCOPIC DESCRIPTION Microscopic examination is performed and the findings corroborate the diagnosis. 05/21/2023 4:20 PM EST [facility] PAP SMEAR ADEQUACY Satisfactory for evaluation 05/21/2023 4:20 PM EST [facility] ENDOCERVICAL T-ZONE Transformation zone present 05/21/2023 4:20 PM EST [facility] EMBEDDED IMAGES 4:20 PM EST [facility] PAP DISCLAIMER Note: this specimen was reprocessed due to excessive blood. The Pap Smear is a screening test that aids in the detection of cervical cancer and cancer precursors. Both false positive and false negative results can occur. The test should be used at regular intervals, and positive results should be confirmed before definitive therapy. Processed using the ThinPrep Lacing Cutter Automated cytology screening device (Moxie). 05/21/2023 4:20 PM EST [facility] Thin Prep ENDOCERVICAL STRUCTURE / Unknown 05/13/2023 11:41 AM EST 05/13/2023 11:41 AM EST Chastity Lu Ashleyjohn [facility] CYTOLOGY ORDERABLES Final R esult [place] [id number] * TRICHOMONAS VAGINALIS BY TMA (PAP PANEL) (05/13/2023 11:41 AM EST) Trichomonas vaginalis by TMA Not Detected Not Detected 05/14/2023 2:53 PM EST [facility] Thin Prep SPECIMEN FROM UTERINE CERVIX / Unknown 05/13/2023 11:41 AM EST 05/13/2023 11:41 AM EST Narrative [facility] - 05/14/2023 2:53 PM EST Test methodology is phone technician mediated amplification (TMA) using the Aptima Trichomonas vaginalis assay from [employer]. A negative result does not completely rule out a Trichomonas vaginalis infection due to potential inhibitors or levels present below the limit of detection of this assay. Results are dependent on proper collection and transport of specimen. This test is indicated for medical purposes only and should not be used for legal or forensic purposes. The assay has been cleared by the FDA to test the following specimens from symptomatic or asymptomatic women: clinician-collected endocervical swabs, clinician-collected vaginal swabs, and specimens collected in PreservCyt solution. Testing on first-catch male and female urine is not FDA-approved by this methodology; performance characteristics of the assay on these sample types were determined by [facility]. Chastity Arevalo [facility] MICROBIOLOG[facility] Final Result [facility] [employer], [facility] [address] [facility] , [place] [address] * GC CHLAMYDIA THIN PREP (05/13/2023 11:41 AM EST) Chlamydia trachomatis Not Detected Not Detected 05/14/2023 2:43 PM EST [facility]ED [facility] [employer], [facility] Neisseria gonorrhoeae Not Detected Not Detected 05/14/2023 2:43 PM EST [facility] [email or web address] [facility] Thin Prep SPECIMEN FROM UTERINE CERVIX / Unknown 05/13/2023 11:41 AM EST 05/13/2023 11:41 AM EST Narrative [facility] - 05/14/2023 2:43 PM EST Testing methodology is phone technician mediated amplification (TMA) using the Aptima Combo 2 assay from [employer]. A negative result does not completely rule out a Chlamydia trachomatis or Neisseria gonorrhoeae infection due to potential inhibitors or levels present below the limit of detection by this assay. Results are dependent on proper collection and transport of specimen. This test is indicated for medical purposes only and should not be used for legal or forensic purposes. The performance characteristics of this assay were validated by the testing laboratory. This assay is FDA cleared to test the following specimens: clinician-collected endocervical, vaginal, male urethral swab specimens, rectal swabs, and throat/pharyngeal swabs; patient collected vaginal specimens within a clinic setting; Thin Prep Specimens in PreservCyt Solution; and first-stream, unpreserved male and female urine specimens. Detailed methodology is available upon request. Chastity Arevalo [facility] MICROBIOLOGY [facility] ABHISHEK GOSS Final Result Performing Organization Address City/[facility]/ZIP Co de Phone Number [facility] [address] [facility] , [place] [address] * PN US OB < 14 WEEKS SINGLE OR FIRST GESTATION (05/08/2023 8:21 AM EST) Anatomical Region Laterality Modality Pelvis Ultrasound 05/08/2023 7:59 AM EST Chastity Tabitha COFFMAN IMG ORDERABLES Fi nal Result * HCV ANTIBODY SCREEN W/ REFLEX (04/16/2023 3:07 PM EST) Pathologist [facility] Hep C Ab Non-Reactiv e Non-Reacti ve 04/16/2023 9:07 PM EST [facility] Blood VENOUS BLOOD / Unknown Venipuncture / Unknown 04/16/2023 3:07 PM EST 04/16/2023 3:07 PM EST [facility] ORDERABLES Final Result Performing Organization Address [facility] de Phone Number [facility] [address] , [place] [phone] * RUBELLA ANTIBODY IGG (04/16/2023 3:07 PM EST) Only the most recent of2 resultswithin the time period is included. [facility] Rubella IgG 1.640 Index Value 04/16/2023 10:43 PM EST [facility] Comment: < 0.90 - Negative No significant level of detectable rubella IgG Antibody (Presumed Non-Immune) 0.90 to 0.99 - Equivocal Repeat testing in 10-14 days is recommended > or = 1.00 - Positive Previous exposure or vaccination (Immune) Note: The magnitude of the measured result is not indicative of the amount of antibody present. Blood VENOUS BLOOD / Unknown Venipuncture / Unknown 04/16/2023 3:07 PM EST 04/16/2023 3:07 PM EST [facility] IMMUNOLOGY ORDERABLES Final Result Performing Organization Address [facility] Co de Phone Number [facility] [address] , [place] [address] * HEPATITIS B SURFACE ANTIGEN (04/16/2023 3:07 PM EST) Only the most recent of2 resultswithin the time period is included. [facility] Hep Bs Ag Non-Reactiv e Non-Reacti ve 04/16/2023 8:57 PM EST PREFERRED [facility] Blood VENOUS BLOOD / Unknown Venipuncture / Unknown 04/16/2023 3:07 PM EST 04/16/2023 3:07 PM EST Chastity Arevalo [facility] CHEMISTRY ORDERABLES Final Result Performing Organization Address City/[facility]/ZIP Co de Phone Number [facility] [address] , [place] [address] * HEMOGLOBIN A1C (04/16/2023 3:07 PM EST) [facility] Hgb A1C 5.1 4.2 - 5.6 % 04/17/2023 4:22 AM EST [facility] Est. Avg Glucose 100 mg/dL 04/17/2023 4:22 AM EST PREFERRED LAB [email or web address] Blood VENOUS BLOOD / Unknown Venipuncture / Unknown 04/16/2023 3:07 PM EST 04/16/2023 3:07 PM EST Narrative [facility] - 04/17/2023 4:22 AM EST REFERENCE RANGE: Normal: 4.0-5.6% Pre-diabetes: 5.7-6.4% Provisional diagnosis of diabetes: >6.4% Hgb F>10% and anything which shortens red cell survival, such as hemolytic anemia, or unstable hemoglobin variants such as HbSS, HbSC, or HbCC, will lower the HbA1c value associated with a given level of glycemic control. [facility] CHEMISTRY ORDERABLES Final Result Performing Organization Address City/[facility]/ZIP Co de Phone Number [facility] [address] [facility] , [place] [address] * (ABNORMAL) HUMAN CHORIONIC GONADOTROPIN QUANTITATIVE (04/01/2023 10:35 AM EST) Only the most recent of7 resultswithin the time period is included. [facility] Hcg Quant 38,840(H) <5 mIU/mL 04/01/2023 2:26 PM EST [facility] Blood VENOUS BLOOD / Unknown Venipuncture / Unknown 04/01/2023 10:35 AM EST 04/01/2023 10:35 AM EST Narrative [employer] [facility] - 04/01/2023 2:26 PM EST Ingestion of aisha doses of biotin (>5 mg/day) taken within 8 hours of drawing blood sample can interfere with this immunoassay test. Female (non-): 0-4.9 mIU/mL Female (postmenopausal): 0-8.1 mIU/mL Indeterminate values for (e.g., 5-25 mIU/mL) may be confirmed with a repeat test in 48-72 hours. Values in should double every 2-3 days for the first six weeks. Komal Barcenas APRN CHEMISTRY ORDERABLES Final Result Performing Organization Address [facility] Co de Phone Number [facility] [address] , [place] [address] * THYROID STIMULATING HORMONE (02/10/2023 11:23 AM EDT) Only the most recent of3 resultswithin the time period is included. TSH 1.820 0.270 - 4.200 mcIU/mL 02/10/2023 6:50 PM EDT [facility] Blood VENOUS BLOOD / Unknown Venipuncture / Unknown 02/10/2023 11:23 AM EDT 02/10/2023 11:24 AM EDT Narrative [employer] [facility] - 02/10/2023 6:50 PM EDT Ingestion of aisha doses of biotin (>5 mg/day) taken within 8 hours of drawing blood sample can interfere with this immunoassay test. Gentry Christian MD CHEMISTRY ORDERABLES Final Res ult Performing Organization Address [facility] Co de Phone Number [facility] [address] [place] [address] , [place] [address] * T4, FREE (THYROXINE) (02/10/2023 11:23 AM EDT) Only the most recent of2 resultswithin the time period is included. Free T4 1.16 0.80 - 1.80 ng/dL 02/10/2023 6:50 PM EDT [facility] Blood VENOUS BLOOD / Unknown Venipuncture / Unknown 02/10/2023 11:23 AM EDT 02/10/2023 11:24 AM EDT Narrative [facility] - 02/10/2023 6:50 PM EDT Ingestion of aisha doses of biotin (>5 mg/day) taken within 8 hours of drawing blood sample can interfere with this immunoassay test. Gentry Christian MD CHEMISTRY ORDERABLES Final Res ult [facility] , [place] [address] * POCT CHARITY SARS ANTIGEN (08/21/2022 11:08 AM EDT) Only the most recent of2 resultswithin the time period is included. SARS Antigen Negative Negative SEP OFFICE Lot Number SEP OFFICE Expiration Date SEP OFFICE SeriAl # SEP OFFICE Control Line SEP OFFICE 08/21/2022 11:0 8 AM EDT Komal Barcenas APRN POINT OF CARE TEST ORDERABL ES Edited Result - Final Performing Organization Address City/[facility] Co de Phone Number SEP OFFICE * POCT CHARITY INFLUENZA A/B (08/21/2022 10:10 AM EDT) Influenza A Antigen Negative Negative 08/21/2022 11:27 AM EDT [facility] [place] Influenza B Antigen Negative Negative 08/21/2022 11:27 AM EDT [facility] [place] Swab SPECIMEN FROM NASOPHARYNGEAL STRUCTURE / Unknown 08/21/2022 10:10 AM EDT 08/21/2022 11:27 AM EDT Komal Swapna VENDING ROUTE DRIVER POINT OF CARE TEST ORDERABL ES Final Result Performing Organization Address City/[facility]/ZIP Co de Phone Number BHAV[facility] [place] [address] [place], [place] [address] * PATHOLOGY TISSUE REQUEST (02/28/2022 11:37 PM EST) Only the most recent of2 resultswithin the time period is included. 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 - Three vessels umbilical cord. - Unremarkable membranes. 03/05/2022 9:43 AM EST [facility] at 0943 EST GROSS DESCRIPTION Received fresh and transferred to formalin, labeled with patient's name, MRN, and placenta is a moderately disrupted 17.4 x 14.1 x 2.3 cm alva placenta with attached umbilical cord and attached membranes. The gregorio-steele membranes insert marginally over 60% of the disc surface and have been partially stripped over the remainder. There is diffuse granular change and mild nodularity (suggestive of amnion nodosum). The 6.7 x 1.4 x 1.3 cm umbilical cord inserts velamentously 7.3 cm from closest disc margin, and contains three vessels with hemorrhagic discoloration over the distal 3.7 cm. The trimmed weight is 304 g. The surface is pink-lynn. The maternal surface is gregorio-brown and markedly disrupted over 30% of disc surface with detached 5.2 cm in greatest dimension portion of placental parenchyma (completeness cannot be evaluated). No discrete adherent clot or area suggestive of abruption is identified. The cut surface is spongy, red-brown with a peripheral 0.9 cm in greatest dimension area of white-steele induration (suggestive of infarct, involving less than 5% cut surface). [employer] sections are submitted as follows: A1 = Umbilical cord (maternal end inked black) and membrane rolls A2 = Full thickness central sections A3 = Full thickness peripheral section A4 = Full thickness peripheral section A5 = Assembler For Puller Over Hand area of infarct and additional brewery representative membranes GEOVANI Hernandez PA(ASCP) 03/04/2022 10:36 AM 03/05/2022 9:43 AM EST [facility] MICROSCOPIC DESCRIPTION Microscopic examination is performed and the findings corroborate the diagnosis. 03/05/2022 9:43 AM EST [facility] EMBEDDED IMAGES 03/05/2022 9:43 AM EST [facility] Tissue ENTIRE PLACENTA / Unknown 02/28/2022 11:37 PM EST 03/03/2022 8:32 AM EST us John Kim MD PATHOLOGY ORDERABLES Final Resu lt [facility] [address] [place] [address] [facility] [address] [place] [address] * (ABNORMAL) CORD BLOOD GAS ARTERIAL (02/28/2022 11:27 PM EST) pH Cord Art 7.298 7.180 - 7.380 pH 02/28/2022 11:45 PM EST [facility] pCO2 Cord Art 55 31 - 57 mmHg 02/28/2022 11:45 PM EST [facility] pO2 Cord Art <42(H) 6 - 31 mmHg 02/28/2022 11:45 PM EST [facility] HCO3 Cord Art 26 19 - 27 mmol/L 02/28/2022 11:45 PM EST [facility] Base Ex Cord Art -0.7 -2.0 - 3.0 mmol/L 02/28/2022 11:45 PM EST [facility] Blood ARTERIAL BLOOD / Unknown Venipuncture / Unknown 02/28/2022 11:27 PM EST 02/28/2022 11:36 PM EST us John Kim MD CHEMISTRY ORDERABLES Final Resu lt [facility], [address], [place] [address] * (ABNORMAL) CORD BLOOD GAS VENOUS (02/28/2022 11:27 PM EST) ph Cord-Mark 7.342 7.250 - 7.450 pH 02/28/2022 11:43 PM EST [facility] pCO2 Cord Mark 49 mmHg 02/28/2022 11:43 PM EST [facility] [facility] pO2 Cord Mark <42(H) 17 - 41 mmHg 02/28/2022 11:43 PM EST [facility] HCO3 Cord Mark 26.0 mmol/L 02/28/2022 11:43 PM EST [facility] Base Ex Cord Venous 0.3 -2.0 - 3.0 mmol/L 02/28/2022 11:43 PM EST [facility] Blood VENOUS BLOOD / Unknown Venipuncture / Unknown 02/28/2022 11:27 PM EST 02/28/2022 11:36 PM EST us John Kim MD CHEMISTRY ORDERABLES Final Resu lt [facility], [facility] [address] [facility], [place] [address] * Spinal Block by Anesthesia (02/28/2022 10:46 PM EST) Narrative [facility] - 02/28/2022 10:46 PM EST Kennedy Oliver CRNA 02/28/2022 10:51 PM Spinal Block by Anesthesia Procedure Date/Time: 02/28/2022 10:46 PM Anesthesiologist: Chiki Rogers MD ADMINISTRATIVE SUPPORT ASSISTANT: Kennedy Oliver CRNA Other Staff: Darrin Easley Performed by: ADMINISTRATIVE SUPPORT ASSISTANT and student tablet technician Patient Location: OR Reason for Block: Primary anesthetic Checklist: Patient identified- 2 criteria, Block site marked, Supplemental O2 applied, if needed, Allergies confirmed, GAVI recommended monitors applied, Block equipment and meds available, Anticoagulant confirmed, IV access functioning, Preprocedure evaluation verified, Procedure consent verified, Sedation given, if needed and Timeout performed Neuraxial Block Immediate pre anesthetic assessment completed? Yes Patient Position: Sitting Prep: ChloraPrep Sterile drape: Yes Monitoring: Blood pressure monitoring, continuous pulse oximetry and heart rate monitoring Sedation level: no sedation Local Anesthetic: Lidocaine 1% 3 ml, intradermal Approach: Midline Location: L3-4 Injection Technique: Single-shot Site localization: anatomical landmark Needle and procedure/medications Needle Type: Yojana Needle Gauge: 24 G Needle Length: 4.5 in Number of Attempts: 1 Assessment Neuraxial Block: free flowing CSF and clear CSF Right sensory level:T3-T4 Left sensory level:T3-T4 Events: no complications noted us Chiki Rogers MD ANESTHESIA ORDERABLES Final Re sult [facility] [address] [place], [place] [id number] * (ABNORMAL) CBC (02/28/2022 9:56 PM EST) Only the most recent of7 resultswithin the time period is included. WBC 13.3(H) 3.7 - 10.3 x10(3)/mcL 02/28/2022 10:10 PM EST [facility] RBC 3.55(L) 3.90 - 5.20 x10(6)/mcL 02/28/2022 10:10 PM EST [facility] Hgb 10.8(L) 11.2 - 15.7 g/dL 02/28/2022 10:10 PM EST [facility] Hct 32.1(L) 34.0 - 45.0 % 02/28/2022 10:10 PM EST [facility] MCV 90.4 80.0 - 100.0 fL 02/28/2022 10:10 PM EST [facility] MCH 30.4 26.0 - 34.0 pg 02/28/2022 10:10 PM EST [facility] MCHC 33.6 30.7 - 35.5 g/dL 02/28/2022 10:10 PM EST [facility] RDW 12.3 <=14.9 % 02/28/2022 10:10 PM EST [facility] Platelet 206 155 - 369 x10(3)/mcL 02/28/2022 10:10 PM EST [facility] MPV 9.9 8.8 - 12.5 fL 02/28/2022 10:10 PM EST [facility] Blood VENOUS BLOOD / Unknown Venipuncture / Unknown 02/28/2022 9:56 PM EST 02/28/2022 10:03 PM EST John Kim MD HEMATOLOGY ORDERABLES Final Res ult Performing Organization Address [facility] de Phone Number [facility] [address] , [place] [address] * PARTIAL THROMBOPLASTIN TIME (02/28/2022 9:56 PM EST) PTT 29.8 27.9 - 38.7 second(s) 02/28/2022 10:21 PM EST [facility] Comment: Therapeutic range for unfractionated heparin: 50.1 - 98.7 seconds Therapeutic range for direct thrombin inhibitors: Argatroban is 1.5 to 3 times the aPTT baseline. Lepirudin is 1.5 to 2 times the aPTT baseline. The aPTT should not exceed 100 seconds. The dosage of Argatroban should be decreased in patients with hepatic impairment. The dosage of Lepirudin should be decreased in renal insufficiency. Blood VENOUS BLOOD / Unknown Venipuncture / Unknown 02/28/2022 9:56 PM EST 02/28/2022 10:03 PM EST John Kim MD HEMATOLOGY ORDERABLES Final Res ult Performing Organization Address [facility] de Phone Number [facility] [address] , [place] [address] * PT / INR (02/28/2022 9:56 PM EST) PT 10.7 10.0 - 13.1 second(s) 02/28/2022 10:21 PM EST [facility] INR 0.92 0.86 - 1.12 (ratio) 02/28/2022 10:21 PM EST [facility] Comment: Level of Therapy Indications Target INR Range Standard Dose Treatment and prophylaxis of venous 2.0 - 3.0 thrombosis, pulmonary embolism High Dose High risk patients with mechanical 2.5 - 3.5 heart valves Blood VENOUS BLOOD / Unknown Venipuncture / Unknown 02/28/2022 9:56 PM EST 02/28/2022 10:03 PM EST John Kim MD HEMATOLOGY ORDERABLES Final Res ult Performing Organization Address [facility] Co de Phone Number [facility] [address] [place] [address] , [place] [address] * (ABNORMAL) FIBRINOGEN (02/28/2022 9:56 PM EST) Fibrinogen 460(H) 196 - 444 mg/dL 02/28/2022 10:21 PM EST [facility] Blood VENOUS BLOOD / Unknown Venipuncture / Unknown 02/28/2022 9:56 PM EST 02/28/2022 10:03 PM EST John Kim MD HEMATOLOGY ORDERABLES Final Res ult Performing Organization Address [facility] Co de Phone Number [facility] [address] [place] [address] , [place] [address] * EK EKG 12 LEAD (02/28/2022 8:38 PM EST) Only the most recent of3 resultswithin the time period is included. Anatomical Region Laterality Modality Electrocardiogra phy 02/28/2022 8:50 PM EST Impressions 02/28/2022 11:[address] [facility] Test Date: 2022-02-28 Pat Name: SUSANNAH KYLE Department: DEPID Room: P&R OVERFLOW Gender: Female Radiation Control Technician: CAMMIE : 2000 Requested By: JOHN KIM Order Number: [id number] Reading MD: Michael Oshea MD Measurements Intervals [place] Rate: 90 P: 24 NE: 104 QRS: 30 QRSD: 91 T: 42 QT: 330 QTc: 404 Interpretive Statements SINUS RHYTHM WITH SHORT NE INTERVAL Electronically Signed On 02-28-2022 23:48:45 EST by Michael Oshea MD Narrative Procedure Note Michael Oshea MD - 02/28/[address] Test Date: 2022-02-28 Pat Name: SUSANNAH KYLE Department: DEPID Room: P&R OVERFLOW Gender: Female Radiation Control Technician: CAMMIE : 2000 Requested By: JHON KIM Order Number: [id number] Reading MD: Michael Oshea MD Measurements Intervals [place] Rate: 90 P: 24 NE: 104 QRS: 30 QRSD: 91 T: 42 QT: 330 QTc: 404 Interpretive Statements SINUS RHYTHM WITH SHORT NE INTERVAL Electronically Signed On 02-28-2022 23:48:45 EST by Michael Oshea MD John Kim MD IMG ECG ORDERABLES Final Result * PN US BPP WITHOUT NST W FOLLOW UP (02/25/2022 11:57 AM EST) Anatomical Region Laterality Modality Pelvis Ultrasound 02/25/2022 9:09 AM EST Chastity Henry MD IMG ORDERABLES Final Result * (ABNORMAL) VANCOMYCIN LEVEL TROUGH (02/15/2022 11:38 PM EDT) Vanco Tr <4.0(L) 10.0 - <20.0 mcg/mL 02/16/2022 12:49 AM EDT [facility] Blood VENOUS BLOOD / Unknown Venipuncture / Unknown 02/15/2022 11:38 PM EDT 02/15/2022 11:56 PM EDT Narrative [facility] - 02/16/2022 12:49 AM EDT Minimum serum concentration for infection control is 10 mcg/mL; a target therapeutic range of 15-20 mcg/mL is recommended for significant infections such as S. aureus. Toxicity does not correlate well with serum concentrations. Supratherapeutic levels are considered to be > 20 mcg/mL. Chastity Henry MD CHEMISTRY ORDERABLES Final Resu lt [facility], [facility] [address] [facility] [facility] [address], [place] [address] * (ABNORMAL) BASIC METABOLIC PANEL (02/15/2022 12:24 PM EDT) Only the most recent of4 resultswithin the time period is included. Sodium 140 136 - 145 mmol/L 02/15/2022 2:09 PM EDT [facility] Potassium 3.7 3.5 - 5.0 mmol/L 02/15/2022 2:09 PM EDT [facility] Chloride 106 98 - 107 mmol/L 02/15/2022 2:09 PM EDT [facility] Total CO2 21(L) 22 - 29 mmol/L 02/15/2022 2:09 PM EDT [facility] Anion Gap 13 7 - 16 mmol/L 02/15/2022 2:09 PM EDT [facility] Calcium 6.9(L) 8.6 - 10.4 mg/dL 02/15/2022 2:09 PM EDT [facility] Glucose Lvl 146(H) 74 - 100 mg/dL 02/15/2022 2:09 PM EDT [facility] BUN 4(L) 6 - 20 mg/dL 02/15/2022 2:09 PM EDT [facility] Creatinine 0.48(L) 0.51 - 1.30 mg/dL 02/15/2022 2:09 PM EDT [facility] eGFR (CKD-EPIcr 2020) 138 >=60 mL/min/1.7 3 m2 02/15/2022 2:09 PM EDT [facility] Comment:Estimated GFR was ca lculated using the CKD-EPIcr (2020) equation refit without race. The equation is recommended by the National Kidney Foundation - [place] [employer] of Nephrology Task Force. Blood VENOUS BLOOD / Unknown Venipuncture / Unknown 02/15/2022 12:24 PM EDT 02/15/2022 1:12 PM EDT us Chastity Henry MD CHEMISTRY ORDERABLES Final Resu lt [facility] [address] [facility], [place] [address] [facility] [address] [place] [address] * EXTRA GREGORIO URINE CX (02/13/2022 10:23 PM EDT) Only the most recent of3 resultswithin the time period is included. Urine URINE SPECIMEN OBTAINED VIA STRAIGHT CATHETER / Unknown 02/13/2022 10:23 PM EDT 02/13/2022 10:38 PM EDT us Chastity Henry MD MICROBIOLOGY - GENERAL ORDERABL ES Final Result Performing Organization Address [facility] Co de Phone Number [facility] [address] [place] [address] * (ABNORMAL) URINALYSIS (02/13/2022 10:23 PM EDT) Only the most recent of5 resultswithin the time period is included. UA Color Light Yellow 02/13/2022 10:46 PM EDT [facility] UA Appear Clear Clear 02/13/2022 10:46 PM EDT [facility] UA Glucose Trace (30-50 mg/dL) Negative mg/dL 02/13/2022 10:46 PM EDT [facility] UA Ketones Negative Negative mg/dL 02/13/2022 10:46 PM EDT [facility] UA Blood Negative Negative 02/13/2022 10:46 PM EDT [facility] UA pH 7.0 5.0 - 8.0 pH 02/13/2022 10:46 PM EDT [facility] UA Protein 3+ (300-600 mg/dL)(A) Negative mg/dL 02/13/2022 10:46 PM EDT [facility] UA Urobilinogen Normal <=1 mg/dL 10:46 PM EDT [facility]A Bili Negative Negative 02/13/2022 10:46 PM EDT [facility] UA Nitrite Negative Negative 02/13/2022 10:46 PM EDT [facility]A Leuk Est Negative Negative 02/13/2022 10:46 PM EDT [facility] UA Spec Grav 1.014 1.001 - 1.035 no units 02/13/2022 10:46 PM EDT [facility] Comment:Reference range humberto d for random specimens only. UA WBC 1 0 - 4 /HPF 02/13/2022 10:46 PM EDT [facility] UA RBC 1 0 - 3 /HPF 02/13/2022 10:46 PM EDT [facility] UA Squam Epi 2+ /LPF 02/13/2022 10:46 PM EDT [facility] UA Mucus Trace /LPF 02/13/2022 10:46 PM EDT [facility] Urine URINE SPECIMEN OBTAINED VIA STRAIGHT CATHETER / Unknown 02/13/2022 10:23 PM EDT 02/13/2022 10:38 PM EDT us Chastity Henry MD URINE ORDERABLES Final Result [facility] [address] [facility] , [place]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 FDA Emergency Use Authorization (EUA) for US laboratories certified under CLIA to perform high complexity tests. This test has not been FDA cleared or approved. In compliance with this authorization, please visit [email or web address]/infectious-disease/coronavirus for more information and to access the applicable information sheets. If the result is Not Detected, this does not rule out the presence of PCR inhibitors in the patient specimen or assay specific nucleic acid in concentrations below the level of detection by the assay. Performed by [facility], [address] [place] [address],[place] [address] [email or web address], Harry Wray MD, Lab. Director Coronavirus [facility] Source Nasopharyngeal 11/13/2019 3:53 AM EDT [employer] [facility] Swab NASOPHARYNGEAL STRUCTURE / Unknown 2019 1:48 PM EDT 2019 1:48 PM EDT Gentry Christian MD LAB SEND OUT ORDERABLES Final Result Performing Organization Address City/[facility]/ZIP Co de Phone Number [facility] [address] [place] [address] * POCT URINALYSIS DIPSTICK (08/02/2019 12:08 PM EDT) Only the most recent of10 resultswithin the time period is included. 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 de Phone Number SEP OFFICE * ALLERGEN, FOOD, COMMON ADULT PANEL-REF LAB (08/02/2019 12:00 PM EDT) IgE 44 <=537 kU/L 08/04/2019 5:19 PM EDT [facility] Comment: REFERENCE INTERVAL: Immunoglobulin E, Serum Access complete set of age- and/or gender-specific reference intervals for this test in the [facility] ([employer]). Egg White <0.10 <=0.34 kU/L 08/04/2019 5:19 PM EDT [facility] Milk <0.10 <=0.34 kU/L 08/04/2019 5:19 PM EDT [facility] [place] <0.10 <=0.34 kU/L 08/04/2019 5:19 PM EDT [facility] Soybean <0.10 <=0.34 kU/L 08/04/2019 5:19 PM EDT [facility] Wheat <0.10 <=0.34 kU/L 08/04/2019 5:19 PM EDT [facility] Peanut <0.10 <=0.34 kU/L 08/04/2019 5:19 PM EDT [facility] Allergen, Supai <0.10 <=0.34 kU/L 08/04/2019 5:19 PM EDT [facility] Clam <0.10 <=0.34 kU/L 08/04/2019 5:19 PM EDT [facility] Allergen, Fish, Cod, f3 <0.10 <=0.34 kU/L 08/04/2019 5:19 PM EDT [facility] Allergen, Scallops,f338 <0.10 <=0.34 kU/L 08/04/2019 5:19 PM EDT [facility] Allergen, Shrimp, f24 <0.10 <=0.34 kU/L 08/04/2019 5:19 PM EDT [facility] Immcap Score See Note 08/04/2019 5:19 PM EDT [facility] Comment: REFERENCE INTERVAL: Allergen, Interpretation Less than 0.10 kU/L......Class 0.....No significant level detected 0.10-0.34 kU/L...........Class 0/1...Clinical relevance undetermined 0.35-0.70 kU/L...........Class 1.....Low 0.71-3.50 kU/L...........Class 2.....Moderate 3.51-17.50 kU/L..........Class 3.....High 17.51-50.00 kU/L.........Class 4.....Very High 50.01-100.00 kU/L........Class 5.....Very High Greater than 100.00kU/L..Class 6.....Very High Allergen results of 0.10-0.34 kU/L are intended for specialist use as the clinical relevance is undetermined. Even though increasing ranges are reflective of increasing concentrations of allergen-specific IgE, these concentrations may not correlate with the degree of clinical response or skin testing results when challenged with a specific allergen. The correlation of allergy laboratory results with clinical history and in vivo reactivity to specific allergens is essential. A negative test may not rule out clinical allergy or even anaphylaxis. Performed by [facility], [address] [place] [id number] [email or web address], Harry Wray MD, Lab. Director Blood VENOUS BLOOD / Unknown Venipuncture / Unknown 08/02/2019 12:00 PM EDT 08/02/2019 12:00 PM EDT Komal Barcenas APRN IMMUNOLOGY ORDERABLES Final Result [facility] [address] [place] [address] * HOLTER MONITOR RECORDING AND ANALYSIS (02/22/2019 9:48 AM EST) Anatomical Region Laterality Modality Holter/Event Mon itoring 02/25/2019 1:31 PM EST Impressions 02/25/2019 3:[address] 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 Referring Physician: Gentry Christian MD. Patient was monitored for 48 hours. Diary was not submitted, pt. triggered events noted. INDICATIONS: Palpitations. CONCLUSION: 1. Sinus Rhythm with intermittent Sinus Arrhythmia. 2. NE and QRS are within normal limits. Electronically Signed On 02-25-2019 15:07:43 EST by Michael Oshea MD Narrative Procedure Note Michael Oshea MD - 02/25/[address] [facility] Test Date: 2019-02-25 Pat Name: SUSANNAH KYLE Department: DEPID Room: Gender: Female Radiation Control Technician: : 2000 Requested By: JODY Valencia Order Number: [id number] Reading MD: Michael Oshea MD Interpretive Statements Well Logger Date: 02/22/2019. Referring Physician: Gentry Christian MD. Patient was monitored for 48 hours. Diary was not submitted, pt.triggered events noted. INDICATIONS: Palpitations. CONCLUSION: 1. Sinus Rhythm with intermittent Sinus Arrhythmia. 2. NE and QRS are within normal limits. Electronically Signed On 02-25-2019 15:07:43 EST by Michael Oshea MD us Jody Kothari MD IMG HOLTER MONITOR ORDERABL ES Final Result * SCANNED EKG (02/17/2019 3:04 PM EST) Only the most recent of2 resultswithin the time period is included. Anatomical Region Laterality Modality Other 02/17/2019 3:04 PM EST us Unknown Unknown IMG ECG ORDERABLES Final Result * POCT EKG (02/17/2019 11:44 AM EST) 02/17/2019 11:4 4 AM EST Impressions SEP OFFICE - 02/17/2019 11:44 AM EST Sinus rhythm with borderline short NE at 108 ms. us Jody Kothari MD POINT OF CARE CARDIOLOGY Fi nal Result SEP OFFICE * XR CHEST PA AND LATERAL (02/16/2019 4:04 PM EST) Only the most recent of3 resultswithin the time period is included. Anatomical Region Laterality Modality Chest Radiographic Janet ging 02/16/2019 4:04 PM EST Impressions 02/16/2019 4:09 PM EST No acute finding. - Narrative 02/16/2019 4:09 PM EST PA AND LATERAL CHEST X-RAY, 02/16/2019 4:04 PM CLINICAL HISTORY: -CHEST PAIN -FATIGUE COMPARISON: 01/21/2016 PROCEDURE COMMENTS: Frontal and lateral views of the chest. FINDINGS: Cardiovascular structures within normal limits. No pneumonia or effusion. No pneumothorax. Procedure Note Cristobal Escobar MD - 02/16/2019 PA AND LATERAL CHEST X-RAY, 02/16/2019 4:04 PM CLINICAL HISTORY: -CHEST PAIN -FATIGUE COMPARISON: 01/21/2016 PROCEDURE COMMENTS: Frontal and lateral views of the chest. FINDINGS: Cardiovascular structures within normal limits. No pneumoniaor effusion. No pneumothorax. IMPRESSION: No acute finding. - us Gentry Yadav MD IMG DIAGNOSTIC IMAGING ORDERAB LES Final Result * D-DIMER (02/16/2019 3:07 PM EST) Only the most recent of2 resultswithin the time period is included. D-Dimer <230 <=230 ng/mL D-DU 02/16/2019 3:25 PM EST [facility] Comment: This test has been clinically validated by the delivery manager and approved by the FDA for exclusion of pulmonary embolism (PE) or deep vein thrombosis (DVT) in patients with a low clinical risk assessment. The cutoff for exclusion of PE and DVT is < 230 ng/mL D-Dimer Units. Increased levels of D-dimer are associated with PE, DVT, disseminated intravascular coagulation, malignancies, inflammation, sepsis, surgery, trauma, , and advanced patient age. Blood VENOUS BLOOD / Unknown Venipuncture / Unknown 02/16/2019 3:07 PM EST 02/16/2019 3:10 PM EST us Gentry Yadav MD HEMATOLOGY ORDERABLES Final Re sult [facility] [address] [facility] [place] [address] * CT ABDOMEN PELVIS W CONTRAST (06/10/2018 2:37 PM EST) Only the most recent of2 resultswithin the time period is included. Anatomical Region Laterality Modality Abdomen, Chest, Pelvis, Hip Comp uted Tomography 06/10/2018 2:37 PM EST Impressions 06/10/2018 2:57 PM EST No bowel abnormalities. Normal appendix. There are increased numbers of normal size lymph nodes within the right lower quadrant mesentery. Findings are nonspecific but may represent mesenteric adenitis. Enlarging right ovarian cyst which measures 4 cm in greatest cross-sectional dimension. No pelvic fluid. Code TAWANDA - Narrative 06/10/2018 2:[address] ABDOMEN AND PELVIS WITH CONTRAST, 06/10/2018 2:37 PM CLINICAL HISTORY: R10.31-Right lower quadrant pqru-XLT-60-CM R10.31-Right lower quadrant ojde-ISG-57-CM COMPARISON: Several priors including most recent from 06/02/2018 and dating back to 05/03/2015. PROCEDURE COMMENTS: Multi-detector volumetric scanning of the abdomen and pelvis with multiplanar reformatting. 100 mL Isovue 370 IV contrast given along with radiodense GI contrast. Automated exposure control for dose reduction was used. CTDIvol: 21.3 mGy. DLP: 836 mGy-cm. FINDINGS: LOWER THORAX: Lung bases unremarkable. ABDOMEN AND PELVIS: Solid organs and gallbladder are normal. There are no bowel abnormalities within the abdomen, there are no abdominal fluid collections and there is no intra-abdominal or retroperitoneal adenopathy. Pelvic findings: There is a normal appendix (scans 56 through 58). There are no bowel abnormalities. There are increased numbers of normal size lymph nodes in the right lower quadrant mesentery (scans 45 through 52). There are no pathologically enlarged pelvic or inguinal nodes. There is a dominant right ovarian cyst measuring 4 cm in greatest cross-sectional dimension (image 70) and increased in size from 06/02/2018 when it had measured 1.9 cm in greatest dimension. Uterus and left adnexal region are unremarkable. There is no pelvic fluid. Bladder is unremarkable. . Procedure Note Chris Noe MD - 06/10/2018 CT ABDOMEN AND PELVIS WITH CONTRAST, 06/10/2018 2:37 PM CLINICAL HISTORY: R10.31-Right lower quadrant hfad-ZFK-82-CM R10.31-Right lower quadrant hjbx-JXA-06-CM COMPARISON: Several priors including most recent from 06/02/2018 anddating back to 05/03/2015. PROCEDURE COMMENTS: Multi-detector volumetric scanning of the abdomenand pelvis with multiplanar reformatting. 100 mL Isovue 370 IV contrast givenalong with radiodense GI contrast. Automated exposure control for dose reductionwas used. CTDIvol: 21.3 mGy. DLP: 836 mGy-cm. FINDINGS: LOWER THORAX: Lung bases unremarkable. ABDOMEN AND PELVIS: Solid organs and gallbladder are normal. There are no bowel abnormalities within the abdomen, there are noabdominal fluid collections and there is no intra-abdominal or retroperitonealadenopathy. Pelvic findings: There is a normal appendix (scans 56 through 58). There are no bowel abnormalities. There are increased numbers of normal size lymph nodes in the rightlower quadrant mesentery (scans 45 through 52). There are no pathologicallyenlarged pelvic or inguinal nodes. There is a dominant right ovarian cyst measuring 4 cm in greatest cross-sectional dimension (image 70) and increased in size from 06/02/2018when it had measured 1.9 cm in greatest dimension. Uterus and left adnexalregion are unremarkable. There is no pelvic fluid. Bladder is unremarkable. . IMPRESSION: No bowel abnormalities. Normal appendix. There are increased numbers ofnormal size lymph nodes within the right lower quadrant mesentery. Findings are nonspecific but may represent mesenteric adenitis. Enlarging right ovariancyst which measures 4 cm in greatest cross-sectional dimension. No pelvicfluid. Code TAWANDA - us Gentry Christian MD [facility] CT ORDERABLES Final Result * HCG QUALITATIVE (06/02/2018 4:21 PM EST) Only the most recent of3 resultswithin the time period is included. HCG QUAL Negative 06/02/2018 4:42 PM EST [facility] Blood VENOUS BLOOD / Unknown Venipuncture / Unknown 06/02/2018 4:21 PM EST 06/02/2018 4:23 PM EST Narrative [facility] - 06/02/2018 4:42 PM EST Ingestion of aisha doses of biotin (>5 mg/day) taken within 8 hours of drawing blood sample can interfere with this immunoassay test. us Kennedy Ramirez MD CHEMISTRY ORDERABLES Final Resu lt Performing Organization Address City/[facility]/ZIP Co de Phone Number [facility] [address] [place] [address] * SEDIMENTATION RATE AUTOMATED (02/01/2018 1:19 PM EDT) Pathologist [facility] Sed Rate 16 0 - 20 mm/hr 02/01/2018 10:09 PM EDT [facility] Blood VENOUS BLOOD / Unknown Venipuncture / Unknown 02/01/2018 1:19 PM EDT 02/01/2018 1:19 PM EDT Imelda Lewis MD HEMATOLOGY ORDERABL ES Final Result Performing Organization Address [facility] de Phone Number [address] [address] * (ABNORMAL) C-REACTIVE PROTEIN (02/01/2018 1:19 PM EDT) CRP 10.67(H) <=5.00 mg/L 02/01/2018 10:50 PM EDT [facility] Blood VENOUS BLOOD / Unknown Venipuncture / Unknown 02/01/2018 1:19 PM EDT 02/01/2018 1:19 PM EDT Imelda Lewis MD CHEMISTRY ORDERABLE S Final Result Performing Organization Address [facility] Co de Phone Number [facility] [address] [facility], [place] [address] * POCT URINE (02/01/2018 12:49 PM EDT) Preg Test, Ur neg POS/NEG SEP OFFICE Lot Number SEP OFFICE Expiration Date SEP OFFICE SeriAl # SEP OFFICE Control Line YES/NO SEP OFFICE 02/01/2018 12:4 9 PM EDT us Imelda Lewis MD POINT OF CARE TEST ORDERABLES Final Result SEP OFFICE * US PELVIS AND TRANSVAGINAL NON OB COMPLETE (05/19/2017 10:00 AM EST) Anatomical Region Laterality Modality Pelvis Ultrasound 05/19/2017 10:0 0 AM EST Impressions 05/19/2017 12:25 PM EST Normal study. Narrative 05/19/2017 12:25 PM EST US PELVIS AND TRANSVAGINAL NON OB COMPLETE 05/19/2017 10:00 AM HISTORY: N94.6-Dysmenorrhea, uwfgcqgebpu-GRT-96-CM N92.1-Excessive and frequent menstruation with irregular rjjge-WFU-63-CM The uterus is normal in size at 7.5 x 2.5 x 4.6 cm. Ovaries are normal size bilaterally. Maximum of 3.7 cm on the right and 2.7 cm on the left. Multiple follicular cysts noted bilaterally. Endometrium is normal thickness at 5.8 mm. There is no free fluid. Procedure Note Libby De La Garza MD - 05/19/2017 US PELVIS AND TRANSVAGINAL NON OB COMPLETE 05/19/2017 10:00 AM HISTORY: N94.6-Dysmenorrhea, zfojpztonmd-XAC-74-CM N92.1-Excessive and frequent menstruation with irregular adtap-BCF-27-CM The uterus is normal in size at 7.5 x 2.5 x 4.6 cm. Ovaries are normalsize bilaterally. Maximum of 3.7 cm on the right and 2.7 cm on the left.Multiple follicular cysts noted bilaterally. Endometrium is normal thickness at 5.8mm. There is no free fluid. IMPRESSION: Normal study. us Dianne Avelar CNM IMG US ORDERABLES Final Result * XR WRIST LEFT PA LATERAL AND OBLIQUE (02/16/2017 5:02 PM EST) Anatomical Region Laterality Modality Wrist Radiographic Janet ging 02/16/2017 5:02 PM EST Impressions 02/16/2017 5:07 PM EST No significant osseous, joint or soft tissue abnormality is seen. Narrative 02/16/2017 5:07 PM EST XR WRIST LEFT PA LATERAL AND OBLIQUE 02/16/2017 5:02 PM Clinical: 16 years Female -HAND INJURY 4 views Procedure Note Konrad Keys MD - 02/16/2017 XR WRIST LEFT PA LATERAL AND OBLIQUE 02/16/2017 5:02 PM Clinical: 16 years Female -HAND INJURY 4 views IMPRESSION: No significant osseous, joint or soft tissue abnormality is seen. us Richmond Martinez MD IMG DIAGNOSTIC IMAGING ORDER GABE Final Result * C DIFF TOXIN DNA (12/11/2016 3:26 PM EDT) Pathologist [facility] C. Diff Toxin DNA Negative [facility] Comment:Toxin producing C. d ifficile target DNA sequences are not detected. Stool specimen (specimen) 12/11/2016 3:26 PM EDT 12/11/2016 8:35 PM EDT Komal Barcenas APRN MICROBIOLOGY - GENERAL ABHISHEK GOSS Final Result [facility] [address] [place] [address] * CALPROTECTIN, FECAL - REF LAB (12/11/2016 3:26 PM EDT) Calprotectin, Fecal <16 <=50 mcg/gm [email or web address] Comment: INTERPRETIVE INFORMATION: Calprotectin, Fecal 50 ug/g or less: Normal 51-120 ug/g: Borderline elevated, test should be re-evaluated in 4-6 weeks. 121 ug/g or greater: Abnormal Performed by [facility], [address] [place] [address] [email or web address], Harry Wray MD - Lab. Director Stool specimen (specimen) 12/11/2016 3:26 PM EDT 12/11/2016 10:18 PM EDT us Komal Swapna VENDING ROUTE DRIVER BODY FLUIDS AND STOOLS ORDE RABLES Final Result Performing Organization Address City/[facility]/ZIP Co de Phone Number [facility] [address] [place] [phone] * SHIGA TOXIN (12/11/2016 3:26 PM EDT) Final Shiga toxin result: Negative Shiga toxins (produced by E. coli) not detected. Internal QC ok [facility] Stool specimen (specimen) 12/11/2016 3:26 PM EDT 12/11/2016 8:42 PM EDT Komal Swapna VENDING ROUTE DRIVER MICROBIOLOGY - GENERAL ORDE RABLES Final Result Performing Organization Address [facility] Co de Phone Number [facility] [address] [place] [address] * STOOL CULTURE (12/11/2016 3:26 PM EDT) Final Stool culture: No growth of enteric pathogens including Salmonella, Shigella, Campylobacter, Vibrio, Yersinia, Aeromonas, Plesiomonas or E. coli O157. [facility] Stool specimen (specimen) 12/11/2016 3:26 PM EDT 12/11/2016 8:42 PM EDT Komal Swapna VENDING ROUTE DRIVER MICROBIOLOGY - GENERAL ORDE RABLES Final Result Performing Organization Address [facility] Co de Phone Number [facility] [address] [place] [address] * XR FOOT LEFT AP LATERAL AND OBLIQUE (11/01/2016 7:31 PM EDT) Only the most recent of3 resultswithin the time period is included. Anatomical Region Laterality Modality Foot Radiographic Janet ging 11/01/2016 7:31 PM EDT Impressions 11/01/2016 7:44 PM EDT Impression: No acute fracture or osseous destruction. Narrative 11/01/2016 7:44 PM EDT 3 views XR FOOT LEFT AP LATERAL AND OBLIQUE 11/01/2016 7:31 PM HISTORY: -ANKLE INJURY. Compare: July 13, 2016 Procedure Note Shiva Ruffin MD - 11/01/2016 3 views XR FOOT LEFT AP LATERAL AND OBLIQUE 11/01/2016 7:31 PM HISTORY: -ANKLE INJURY. Compare: July 13, 2016 IMPRESSION: Impression: No acute fracture or osseous destruction. us Abdias Pineda MD [facility] DIAGNOSTIC IMAGING ORDERA BLES Final Result * XR ANKLE LEFT AP LATERAL AND OBLIQUE (11/01/2016 7:30 PM EDT) Only the most recent of3 resultswithin the time period is included. Anatomical Region Laterality Modality Ankle Radiographic Janet ging 11/01/2016 7:30 PM EDT Impressions 11/01/2016 7:39 PM EDT Impression: No acute finding Narrative 11/01/2016 7:39 PM EDT XR ANKLE LEFT AP LATERAL AND OBLIQUE 11/01/2016 7:39 PM HISTORY: Pain Other info: -ANKLE INJURY Comparison: None No acute fracture or dislocation. Procedure Note Rajeev Bejarano MD - 11/01/2016 XR ANKLE LEFT AP LATERAL AND OBLIQUE 11/01/2016 7:39 PM HISTORY: Pain Other info: -ANKLE INJURY Comparison: None No acute fracture or dislocation. IMPRESSION: Impression: No acute finding us Abdias Pineda MD [facility] DIAGNOSTIC IMAGING ORDERA BLES Final Result * US RIGHT UPPER QUADRANT (08/30/2016 9:47 AM EDT) Only the most recent of2 resultswithin the time period is included. Anatomical Region Laterality Modality Abdomen Ultrasound 08/30/2016 9:47 AM EDT Impressions 08/30/2016 9:54 AM EDT Normal examination. Narrative 08/30/2016 9:54 AM EDT RIGHT UPPER QUADRANT ULTRASOUND, 08/30/2016 HISTORY: R10.11-Right upper quadrant pfza-WKN-30-CM R11.6-Jikuoh-PNC-10-CM FINDINGS: The gallbladder is normal. No stones, wall thickening or pericholecystic fluid identified. No sonographic Werner's sign. The liver is normal in size and echotexture. No masses or ductal dilatation. Common duct normal in caliber at 4 mm. The visualized portions of the right kidney and pancreas are normal. Procedure Note Diego Yadav MD - 08/30/2016 RIGHT UPPER QUADRANT ULTRASOUND, 08/30/2016 HISTORY: R10.11-Right upper quadrant zmpv-LEM-81-CM R11.9-Docdce-SHP-10-CM FINDINGS: The gallbladder is normal. No stones, wall thickening or pericholecysticfluid identified. No sonographic Werner's sign. The liver is normal in size and echotexture. No masses or ductaldilatation. Common duct normal in caliber at 4 mm. The visualized portions of the right kidney and pancreas are normal. IMPRESSION: Normal examination. us Imelda Lewis MD [facility] US ORDERABLES F inal Result * DIFFERENTIAL (04/17/2016 11:30 PM EST) Only the most recent of6 resultswithin the time period is included. Neut Percent 49.5 % [facility] Lymph Percent 38.6 % [facility] [place] Percent 9.8 % [facility] Eos Percent 1.8 % [facility] Baso Percent 0.3 % [facility] Neut# 3.5 1.8 - 7.7 x10(3)/mcL [facility] Lymph# 2.7 0.6 - 4.8 x10(3)/mcL [facility] [place]# 0.7 0.0 - 1.3 x10(3)/mcL [facility] Eos# 0.1 0.0 - 0.5 x10(3)/mcL [facility] Baso# 0.0 0.0 - 0.2 x10(3)/mcL [facility] Blood specimen (specimen) 04/17/2016 11:30 PM EST 04/17/2016 11:30 PM EST us Kennedy Hutchins MD HEMATOLOGY ORDERABLES Final R esult Performing Organization Address [facility]/ZIP Co de Phone Number [facility] [address] [place] [address] * CREATINE KINASE (04/17/2016 11:30 PM EST) CK 81 26 - 192 IU/L [facility] Blood specimen (specimen) UPPER LIMB STRUCTURE / Unknown 04/17/2016 11:30 PM EST 04/17/2016 11:30 PM EST us Kennedy Hutchins MD CHEMISTRY ORDERABLES Final Re sult Performing Organization Address [facility] Phone Number [facility] [address] [place] [address] * XR WRIST RIGHT PA LATERAL AND OBLIQUE (11/26/2015 9:12 PM EDT) Only the most recent of3 resultswithin the time period is included. Anatomical Region Laterality Modality Wrist Radiographic Janet ging 11/26/2015 9:12 PM EDT Impressions 11/26/2015 10:13 PM EDT No acute bony abnormality. Narrative 11/26/2015 10:13 PM EDT XR WRIST RIGHT PA LATERAL AND OBLIQUE 11/26/2015 9:12 PM History: 15 years .Female. -WRIST PAIN. Wrist pain following trauma TECHNIQUE: 4 views.Comparison 14 July 2014 FINDINGS: Bone mineralization is subjectively within normal limits. No fracture or dislocation. The joint spaces are well maintained with grossly normal alignment. No aggressive or destructive process. No foreign body. Procedure Note Christiano Kam MD - 11/26/2015 XR WRIST RIGHT PA LATERAL AND OBLIQUE 11/26/2015 9:12 PM History: 15 years .Female. -WRIST PAIN. Wrist pain following trauma TECHNIQUE: 4 views.Comparison 14 July 2014 FINDINGS: Bone mineralization is subjectively within normal limits. Nofracture or dislocation. The joint spaces are well maintained with grossly normal alignment. No aggressive or destructive process. No foreign body. IMPRESSION No acute bony abnormality. us Chastity Velazquez MD IMG DIAGNOSTIC IMAGING ORDERABLE S Final Result * CT ABDOMEN PELVIS WO ORAL OR IV CONTRAST (09/22/2015 5:58 PM EDT) Anatomical Region Laterality Modality Abdomen, Pelvis Computed Tomogra phy 09/22/2015 5:58 PM EDT Impressions 09/22/2015 6:28 PM EDT IMPRESSION: 1. No urinary tract calculi, obstruction or inflammatory process. 2. No acute appendicitis. 3. Posterior medial left basilar early pneumonia or other infiltrate. Narrative 09/22/2015 6:28 PM EDT ABDOMEN AND PELVIS CT WITHOUT CONTRAST: 09/22/2015 COMPARISON: Abdomen and pelvis CT 05/03/2015 INDICATION: 14-year-old with right flank pain and hematuria. TECHNICAL FACTORS: 5mm noncontrast axial images obtained from a level above adrenal glands to symphysis pubis. Coronal and sagittal reconstructed images obtained. FINDINGS: No calcifications are seen within either kidney, along the course of the ureters or within the bladder. There is no hydronephroureter. No perinephric stranding. Noncontrast evaluation of kidney parenchyma is uniform and normal. No abnormal renal swelling. Bladder is only mildly filled and unremarkable. Noncontrast evaluation of solid organs is unremarkable, including adnexa. Appendix is not abnormally dilated but it does contain uniform mild high attenuation material along most of its length, only sparing proximal segment. There are no inflammatory changes around the appendix or elsewhere within abdomen or pelvis. No pelvic free fluid or free air. Small patchy clustered infiltrates are in posterior medial left lower lobe. No pleural effusion. Procedure Note Ayah Momin MD - 09/22/[address] WITHOUT CONTRAST: 09/22/2015 COMPARISON: Abdomen and pelvis CT 05/03/2015 INDICATION: 14-year-old with right flank pain and hematuria. TECHNICAL FACTORS: 5mm noncontrast axial images obtained from a levelabove adrenal glands to symphysis pubis. Coronal and sagittal reconstructedimages obtained. FINDINGS: No calcifications are seen within either kidney, along the course of theureters or within the bladder. There is no hydronephroureter. No perinephricstranding. Noncontrast evaluation of kidney parenchyma is uniform and normal. Noabnormal renal swelling. Bladder is only mildly filled and unremarkable. Noncontrast evaluation of solid organs is unremarkable, includingadnexa. Appendix is not abnormally dilated but it does contain uniform mild high attenuation material along most of its length, only sparing proximalsegment. There are no inflammatory changes around the appendix or elsewherewithin abdomen or pelvis. No pelvic free fluid or free air. Small patchy clustered infiltrates are in posterior medial left lowerlobe. No pleural effusion. IMPRESSION: 1. No urinary tract calculi, obstruction or inflammatory process. 2. No acute appendicitis. 3. Posterior medial left basilar early pneumonia or other infiltrate. Mychal Pedro MD IMG CT ORDERABLES Final Result * (ABNORMAL) UA MICROSCOPIC (09/22/2015 4:16 PM EDT) UA RBC 10-20(A) 0 - 3 /HPF [facility] UA Mucus 2+ [facility] UA Bacteria Trace [facility] Urine specimen (specimen) 09/22/2015 4:16 PM EDT 09/22/2015 4:49 PM EDT Mychal Pedro MD URINE ORDERABLES Final Result Performing Organization Address City/State/[facility] Co de Phone Number [facility] [address] [place] [address] * WOUND CULTURE (08/24/2015 4:41 PM EDT) Final Sparse growth of Methicillin-Resist ant Staphylococcus aureus [facility] GS No slide sent/smear made after culture inoculated Rare WBC's No organisms seen [facility] Organism Methicillin-Resist ant Staphylococcus aureus [facility] Specimen from skin (specimen) 08/24/2015 4:41 PM EDT 08/24/2015 5:07 PM EDT Comment:ABSCESS OF LEFT AXIL LA Narrative Organism Antibiotic Method Susceptibility Methicillin Resistant Staphylococcus aureus Amoxicillin/Clavulana te MINIMUM INHIBITORY CONCENTRATION >4/2: Resistant Methicillin Resistant Staphylococcus aureus Ampicillin/Sulbactam MINIMUM INHIBITORY CONCENTRATION <=8/4: Resistant Methicillin Resistant Staphylococcus aureus Ceftriaxone MINIMUM INHIBITORY CONCENTRATION <=8: Resistant Methicillin Resistant Staphylococcus aureus Ciprofloxacin MINIMUM INHIBITORY CONCENTRATION <=1: Susceptible Methicillin Resistant Staphylococcus aureus Clindamycin MINIMUM INHIBITORY CONCENTRATION <=0.5: Susceptible Methicillin Resistant Staphylococcus aureus Daptomycin MINIMUM INHIBITORY CONCENTRATION <=0.5: Susceptible Methicillin Resistant Staphylococcus aureus Erythromycin MINIMUM INHIBITORY CONCENTRATION >4: Resistant Methicillin Resistant Staphylococcus aureus Gentamicin MINIMUM INHIBITORY CONCENTRATION <=4: Susceptible Comment: Rifampin and Gentamicin should not be used alone for antimicrobial therapy. For methicillin resistant staphylococci, ciprofloxacin should also not be used alone. Methicillin Resistant Staphylococcus aureus Linezolid MINIMUM INHIBITORY CONCENTRATION 2: Susceptible Methicillin Resistant Staphylococcus aureus Oxacillin MINIMUM INHIBITORY CONCENTRATION >2: Resistant Methicillin Resistant Staphylococcus aureus Rifampin MINIMUM INHIBITORY CONCENTRATION <=1: Susceptible Methicillin Resistant Staphylococcus aureus Tetracycline MINIMUM INHIBITORY CONCENTRATION <=4: Susceptible Methicillin Resistant Staphylococcus aureus Trimethoprim/Sulfamet hoxazole MINIMUM INHIBITORY CONCENTRATION <=0.5/9.5: Susceptible Methicillin Resistant Staphylococcus aureus Vancomycin MINIMUM INHIBITORY CONCENTRATION 1.0: Susceptible Analilia Leyva PA-C MICROBIOLOGY - GEN ERAL ORDERABLES Final Result Performing Organization Address City/[facility]/[place] [address] * CORTISOL (06/20/2015 8:56 AM EST) Cortisol 14.93 mcg/dL [facility] Comment: Normals: Mornin.2 - 19.4 mcg/dL Evenin.3 - 11.9 mcg/dL Blood specimen (specimen) UPPER LIMB STRUCTURE / Unknown 06/20/2015 8:56 AM EST 06/20/2015 4:18 PM EST Gentry Christian MD CHEMISTRY [place] [address] * MRI BRAIN WO CONTRAST (06/04/2015 4:08 PM EST) Anatomical Region Laterality Modality Head Magnetic Resonan ce 06/04/2015 4:08 PM EST Impressions 06/04/2015 4:23 PM EST Impression: No Acute Findings. Narrative 06/04/2015 4:23 PM EST MRI BRAIN WO CONTRAST 06/04/2015 4:08 PM HISTORY: R47.81-Slurred bnfocb-ZOD-52-CM R47.89-Other speech [id number]-38-CM. Compare: None available Cerebellar tonsils are within normal limits in position. C2-C3 level shows no disc herniation or compression of neural structures. The dens is noted to be angulated somewhat posteriorly, but no compression of the brainstem and the foramen magnum is seen. Slight paranasal sinus disease noted Diffusion weighted images show no acute findings. Procedure Note Shiva Ruffin MD - 06/04/2015 MRI BRAIN WO CONTRAST 06/04/2015 4:08 PM HISTORY: R47.81-Slurred [id number]-XUP-73-CM R47.89-Other speech [id number]-CM. Compare: None available Cerebellar tonsils are within normal limits in position. C2-C3 level shows no disc herniation or compression of neuralstructures. The dens is noted to be angulated somewhat posteriorly, but no compressionof the brainstem and the foramen magnum is seen. Slight paranasal sinus disease noted Diffusion weighted images show no acute findings. Impression: No Acute Findings. Gentry Christian MD IMG MRI ORDERABLES Final Resul t * US PELVIS NON OB COMPLETE (04/30/2015 11:02 AM EST) Anatomical Region Laterality Modality Pelvis Ultrasound 04/30/2015 11:0 2 AM EST Impressions 04/30/2015 12:04 PM EST Impression: Normal. Narrative 04/30/2015 12:04 PM EST US PELVIS NON OB COMPLETE 04/30/2015 11:02 AM HISTORY: R10.2-Pelvic and perineal [id number]-66-CM Findings: Normal uterus. Endometrial stripe 14 mm thick. Normal ovaries. No pelvic free fluid. Procedure Note Cristobal Escobar MD - 04/30/2015 US PELVIS NON OB COMPLETE 04/30/2015 11:02 AM HISTORY: R10.2-Pelvic and perineal [id number]-CM Findings: Normal uterus. Endometrial stripe 14 mm thick. Normal ovaries.No pelvic free fluid. Impression: Normal. Gentry Christian MD [facility] US ORDERABLES Final Result * .GRPA RESULTS (03/12/2015 8:30 PM EST) Only the most recent of3 resultswithin the time period is included. Pathologist [facility] A Streptococcus specimen Throat [facility] Streptococcus DNA Negative [facility] Group A Streptococcus Interp Negative for Group A Streptococcus DNA. A negative result does not rule out the presence of Group A Streptococcus DNA in concentrations below the level of detection by the assay. Test methodology by DNA probe. The performance characteristics of this test were validated by [facility]. This laboratory is authorized under the Clinical Laboratory Improvement Amendments (CLIA) as qualified to perform high-complexity testing. Compliance statement is available in the Laboratory. [facility] Group A Streptococcus Interp Negative [facility] Specimen from throat (specimen) 03/12/2015 8:30 PM EST 03/13/2015 8:24 AM EST Jose Abdullahi DO MICROBIOLOGY - GENERAL ORDERA BLES Final Result Performing Organization Address [facility] Co de Phone Number [facility] [address] [place] [address] * STREP SCREEN (03/12/2015 8:30 PM EST) Only the most recent of3 resultswithin the time period is included. Pathologist [facility] Strep Screen Negative [facility] Specimen from throat (specimen) 03/12/2015 8:30 PM EST 03/12/2015 8:39 PM EST Jose Abdullahi DO MICROBIOLOGY - GENERAL ORDERA BLES Final Result Performing Organization Address [facility] Co de Phone Number [facility] [address] [place] [address] * EBV VIRAL CAPSID ANTIBODIES (08/09/2014 4:09 PM EDT) [facility] EB VCA IgM 13.9 unit/mL [facility] Comment: Sample results should be interpreted as follows: <36.0 U/mL Negative Absence of detectable VCA IgM antibodies. If exposure to Yamilet-Navarro virus is suspected despite a negative finding, a second sample should be collected and tested no less than one to two weeks later. 36.0 to 43.9 U/mL Equivocal The equivocal sample should be repeat tested. In case the result remains in this range after repeat testing, a second sample should be collected and tested no less than one to two weeks later. > 44.0 U/mL Positive Presence of detectable VCA IgM antibodies. Specific IgM antibodies are usually detected in patients with recent primary infections and may be found in patients with reactivated infections. Other EBV serology assays should be performed to confirm EBV-associated infectious mononucleosis. Note - The magnitude of the measured result, above the cutoff, is not indicative of the amount of antibody present. EB VCA IgG 228.0 unit/mL [facility] Comment: Sample results should be interpreted as follows: < 18.0 U/mL Negative Absence of detectable VCA IgG antibodies. If exposure to Yamilet-Navarro virus is suspected despite a negative finding, a second sample should be collected and tested no less than one to two weeks later. 18.0 to 21.9 U/mL Equivocal The equivocal sample should be repeat tested. In case the result remains in this range after repeat testing, a second sample should be collected and tested no less than one or two weeks later. > 22 U/mL Positive Presence of detectable VCA IgG antibodies. A positive result indicates current or past exposure to Yamilet-Navarro virus. Note - The magnitude of the measured result, above the cutoff, is not indicative of the amount of antibody present. Blood specimen (specimen) UPPER LIMB STRUCTURE / Unknown 08/09/2014 4:09 PM EDT 08/09/2014 9:02 PM EDT us Gentry Christian MD IMMUNOLOGY ORDERABLES Final Re sult [facility] [address] [place] [address] * POCT WRIST (07/14/2014 11:28 AM EDT) Only the most recent of2 resultswithin the time period is included. 07/14/2014 11:2 8 AM EDT Impressions SEP OFFICE - 07/14/2014 11:52 AM EDT Xray does not show any obvious fracture. us Imelda Lewis MD POINT OF CARE IMAGI NG Final Result Performing Organization Address [facility] Co de Phone Number SEP OFFICE * POCT FOOT & TOES R L (03/07/2013 12:14 PM EST) Only the most recent of2 resultswithin the time period is included. 03/07/2013 12:1 4 PM EST Impressions SEP OFFICE - 03/07/2013 12:14 PM EST No fracture or dislocation us Jody Kothari MD POINT OF CARE IMAGING Final Result Performing Organization Address [facility] de Phone Number SEP OFFICE * XR CLAVICLE RIGHT (01/04/2013 8:48 PM EDT) Anatomical Region Laterality Modality Shoulder Radiographic Janet ging 01/04/2013 8:35 PM EDT Narrative 01/04/2013 8:57 PM EDT Right clavicle, 2 views, December 24 Trauma pain, no priors Normal Impression, Normal Lizarraga Procedure Note Flynn Lizarraga MD - 01/04/2013 Right clavicle, 2 views, December 24, [id number] Trauma pain, no priors Normal Impression, Normal Lizarraga us Richmond Martinez MD IMG DIAGNOSTIC IMAGING ORDER GABE Final Result * XR FOOT RIGHT AP LATERAL AND OBLIQUE (06/15/2012 6:09 PM EST) Only the most recent of3 resultswithin the time period is included. Anatomical Region Laterality Modality Foot Radiographic Janet ging 06/15/2012 6:02 PM EST Impressions 06/15/2012 6:35 PM EST Impression: No significant osseous, joint or soft tissue abnormality is seen. Narrative 06/15/2012 6:35 PM EST Right foot 3 views: 06/15/2012 COMPARISON: 05/26/2011 History: Injury, lateral midfoot pain Procedure Note Naveed Dacosta MD - 06/15/2012 Right foot 3 views: 06/15/2012 COMPARISON: 05/26/2011 History: Injury, lateral midfoot pain Impression: No significant osseous, joint or soft tissue abnormality isseen. us Edu Antoine DO IMG DIAGNOSTIC IMAGING ORDERA BLES Final Result * SCANNED RADIOLOGY REPORT (03/24/2012 12:00 AM EST) Only the most recent of3 resultswithin the time period is included. Anatomical Region Laterality Modality Other Narrative Procedure Note Unknown, Unknown - 03/24/2012 12:00 AM EST us Unknown Unknown IMG DIAGNOSTIC IMAGING ORDERABLE S Final Result * SCANNED LABS (03/24/2012 12:00 AM EST) Only the most recent of3 resultswithin the time period is included. Narrative Procedure Note Unknown, Unknown - 03/24/2012 12:00 AM EST us Unknown Unknown HEMATOLOGY ORDERABLES Final Resu lt * SCANNED OR REPORT (09/17/2011 12:00 AM EDT) Narrative Transcriptions Unknown, Unknown - 09/17/2011 12:00 AM EDT us Unknown Unknown PROCEDURE/MINOR SURGICAL ORDERAB LES Final Result * SCANNED OR REPORT STL (08/09/2009 12:00 AM EDT) Narrative 08/09/2009 11:40 AM EDT Ordered by an unspecified provider. Transcriptions Unknown, Unknown - 08/09/2009 7:36 AM EDT us Unknown Unknown PROCEDURE/MINOR SURGICAL ORDERAB LES Final Result * US RENAL SONOGRAPHY (02/25/2005 7:40 AM EST) Anatomical Region Laterality Modality Other 02/25/2005 7:40 AM EST Narrative 02/25/2005 8:59 AM EST Renal ultrasound 02/25/05- History- Urinary tract infection. Right kidney measures 7.1 cm in length and left kidney 8.2 cm. No hydronephrosis or mass is seen. No cortical thinning is evident. Opinion- Normal. Bicycle Racer- CHASTITY Hogan Radiologist- SHIVA RUFFIN MD Released Date Time- 02/25/051512 Procedure Note Shiva Ruffin W - 06/19/2009 Renal ultrasound 02/25/05- History- Urinary tract infection. Right kidney measures 7.1 cm in length and left kidney 8.2 cm. No hydronephrosis or mass is seen. No cortical thinning is evident. Opinion- Normal. Bicycle Racer- CHASTITY Hogan Radiologist- SHIAV RUFFIN MD Released Date Time- 02/25/05 151 Raúl Wood MD [facility] PATRICIA hoffmann Result Visit Diagnoses Diagnosis Start Date Urinary tract infection, site not specified 03/06/2010 Acute sinusitis Acute sinusitis, unspecified 05/10/2010 AR (allergic rhinitis) Allergic rhinitis, cause unspecified 07/05/2010 Head ache Headache 07/05/2010 Ankle sprain Sprain of ankle, unspecified site 08/05/2010 Migraine Migraine, unspecified, without mention of intractable migraine without mention of status migrainosus 09/20/2010 PARDO (headache) Headache 12/03/2010 Infection, enterovirus Other specified diseases due to viruses 12/03/2010 Bruising Contusion of unspecified site 12/03/2010 UTI (lower urinary tract infection) Urinary tract infection, site not specified 01/02/2011 Dysuria 01/02/2011 UTI (lower urinary tract infection) Urinary tract infection, site not specified 01/02/2011 Strep throat Streptococcal sore throat 01/21/2011 Hoarseness Dysphonia 01/30/2011 Foot fracture, right Closed fracture of unspecified bone(s) of foot (except toes) 02/27/2011 Ankle pain Pain in joint, ankle and foot 02/27/2011 Foot injury Injury, other and unspecified, knee, leg, ankle, and foot 02/27/2011 Eustachian tube dysfunction Dysfunction of Eustachian tube 05/09/2011 Foot contusion Contusion of foot 05/26/2011 Migraine Migraine, unspecified, without mention of intractable migraine without mention of status migrainosus 05/30/2011 PARDO (headache) Headache 05/30/2011 Acute bronchitis 05/30/2011 Neck pain Cervicalgia 06/03/2011 Sternocleidomastoid muscle tenderness Mylagia and myositis, unspecified 06/04/2011 UTI (lower urinary tract infection) Urinary tract infection, site not specified 07/01/2011 Abdominal pain, right lower quadrant 07/01/2011 URI (upper respiratory infection) Acute upper respiratory infections of unspecified site 07/03/2011 RLQ abdominal pain Abdominal pain, right lower quadrant 07/03/2011 RLQ abdominal pain Abdominal pain, right lower quadrant 07/09/2011 Acute pharyngitis 07/17/2011 Abdominal pain, other specified site 07/24/2011 Abdominal pain, other specified site 07/25/2011 RLQ abdominal pain Abdominal pain, right lower quadrant 07/30/2011 Pharyngitis, acute Acute pharyngitis 08/14/2011 Nausea alone 08/14/2011 Tonsillitis Acute tonsillitis 08/26/2011 Conjunctivitis Conjunctivitis, unspecified 09/19/2011 Pain, arm, right Pain in limb 11/17/2011 Contusion of upper arm, right Contusion of upper arm 11/19/2011 Leg pain Pain in limb 12/18/2011 Bug bites Other, multiple, and unspecified sites, insect bite, nonvenomous, without mention of infection 12/18/2011 Migraine Migraine, unspecified, without mention of intractable migraine without mention of status migrainosus 02/11/2012 Abdominal pain Abdominal pain, unspecified site 02/26/2012 Abdominal pain Abdominal pain, unspecified site 03/17/2012 Acute bronchitis 05/25/2012 Foot sprain Sprain of foot, unspecified site 06/15/2012 Seasonal allergies Allergic rhinitis, cause unspecified 07/27/2012 Well child check Routine or child health check 11/12/2012 Mole (skin) Benign neoplasm of skin, site unspecified 11/12/2012 Mole (skin) Benign neoplasm of skin, site unspecified 11/15/2012 Acute pharyngitis 12/16/2012 Exercise induced bronchospasm 12/16/2012 Wrist sprain Sprain of wrist, unspecified site 01/04/2013 Sprain of wrist, unspecified site 01/04/2013 Ankle sprain Sprain of ankle, unspecified site 03/02/2013 Foot sprain Sprain of foot, unspecified site 03/02/2013 Sprain of ankle, unspecified site 03/02/2013 Foot pain Pain in limb 03/07/2013 Dietary surveillance and counseling 03/07/2013 Exercise counseling 03/07/2013 Otitis media Unspecified otitis media 06/16/2013 Headache(784.0) Headache 06/16/2013 Acute sinusitis Acute sinusitis, unspecified 08/29/2013 Knee pain, right Pain in joint, lower leg 02/09/2014 Acute bronchitis 03/21/2014 Muscle cramps Cramp of limb 05/05/2014 Cough 05/05/2014 Sternocleidomastoid muscle tenderness Mylagia and myositis, unspecified 05/05/2014 RLQ abdominal pain Abdominal pain, right lower quadrant 05/24/2014 Exercise induced bronchospasm 05/24/2014 RLQ abdominal pain Abdominal pain, right lower quadrant 05/24/2014 Nausea Nausea alone 05/24/2014 Irregular menses Irregular menstrual cycle 06/12/2014 Dysmenorrhea 06/12/2014 Leg pain, right Pain in limb 06/21/2014 Irregular menstrual bleeding Irregular menstrual cycle 07/04/2014 Viral syndrome Unspecified viral infection, in conditions classified elsewhere and of unspecified site 07/04/2014 Wrist pain, acute, right 07/07/2014 Irregular menses Irregular menstrual cycle 07/07/2014 Wrist pain, acute, right 07/14/2014 Wrist pain, acute, right 07/14/2014 Headache 08/07/2014 Fatigue Other malaise and fatigue 08/07/2014 Headache 08/09/2014 Fatigue Other malaise and fatigue 08/09/2014 Headache 08/09/2014 Fatigue Other malaise and fatigue 08/09/2014 Infectious mononucleosis 08/11/2014 Irregular menses Irregular menstrual cycle 10/27/2014 Insomnia Insomnia, unspecified 10/27/2014 Seasonal allergies Allergic rhinitis, cause unspecified 10/27/2014 Cough 11/27/2014 Irritable bowel syndrome with diarrhea Irritable bowel syndrome 12/14/2014 Cellulitis of right upper extremity Cellulitis and abscess of upper arm and forearm 12/27/2014 Exposure to MRSA Contact with or exposure to other communicable diseases 12/27/2014 Right knee pain Pain in joint, lower leg 02/06/2015 Burning with urination Dysuria 02/22/2015 Burning with urination Dysuria 02/22/2015 Abdominal pain, RLQ (right lower quadrant) Abdominal pain, right lower quadrant 02/22/2015 Pleurisy Pleurisy without mention of effusion or current tuberculosis 03/12/2015 Dysmenorrhea in adolescent 03/13/2015 URI (upper respiratory infection) Acute upper respiratory infections of unspecified site 03/20/2015 Cough 03/28/2015 Acute bacterial sinusitis Acute sinusitis, unspecified 03/28/2015 Irregular menstrual cycle 04/17/2015 Abdominal pain, RUQ (right upper quadrant) Abdominal pain, right upper quadrant 04/19/2015 Acute otitis media with effusion, left 04/19/2015 Pelvic pain in female Unspecified symptom associated with female genital organs 04/19/2015 Abdominal pain, RUQ (right upper quadrant) Abdominal pain, right upper quadrant 04/30/2015 Pelvic pain in female Unspecified symptom associated with female genital organs 04/30/2015 Right lower quadrant abdominal pain Abdominal pain, right lower quadrant 05/03/2015 Abdominal pain, RLQ (right lower quadrant) Abdominal pain, right lower quadrant 05/03/2015 Dehydration, mild Dehydration 05/03/2015 Slurred speech Other speech disturbance 05/29/2015 Word finding difficulty Other speech disturbance 05/29/2015 Slurred speech Other speech disturbance 06/04/2015 Word finding difficulty Other speech disturbance 06/04/2015 Acute bacterial sinusitis Acute sinusitis, unspecified 06/11/2015 Nonintractable headache, unspecified chronicity pattern, unspecified headache type 06/11/2015 Family history of Berlin's disease Family history of other endocrine and metabolic diseases 06/11/2015 Family history of Bergen's disease Family history of other endocrine and metabolic diseases 06/20/2015 Family history of Bergen's disease Family history of other endocrine and metabolic diseases 06/20/2015 Skin infection Unspecified local infection of skin and subcutaneous tissue 08/23/2015 Abscess of axilla, left Cellulitis and abscess of upper arm and forearm 08/23/2015 Skin infection Unspecified local infection of skin and subcutaneous tissue 08/24/2015 Abscess of axilla, left Cellulitis and abscess of upper arm and forearm 08/24/2015 Chest tightness Other chest pain 09/19/2015 Wheeze Wheezing 09/19/2015 Cough 09/19/2015 Pneumonia of left lower lobe due to infectious organism 09/22/2015 Microscopic hematuria 09/22/2015 Pneumonia of left lower lobe due to infectious organism 09/27/2015 Ulnar neuropathy, unspecified laterality 09/27/2015 Pneumonia of left lower lobe due to infectious organism 10/03/2015 Generalized anxiety disorder 11/06/2015 Sports physical Other general medical examination for administrative purposes 11/06/2015 Wrist sprain, right, initial encounter 11/26/2015 Wrist sprain, right, initial encounter 12/07/2015 Bruising Contusion of unspecified site 12/07/2015 Rash Rash and other nonspecific skin eruption 01/10/2016 SOB (shortness of breath) Shortness of breath 01/18/2016 Wheezing 01/18/2016 Chest tightness Other chest pain 01/18/2016 SOB (shortness of breath) Shortness of breath 01/21/2016 Chest tightness Other chest pain 01/21/2016 Wheezing 01/21/2016 Scabies 01/23/2016 Acute bacterial sinusitis Acute sinusitis, unspecified 03/05/2016 Panic attack Panic disorder without agoraphobia 04/17/2016 Anxiety related tremor Abnormal involuntary movements 04/17/2016 Stuttering during school years Childhood onset fluency disorder 04/17/2016 Nonintractable headache, unspecified chronicity pattern, unspecified headache type 05/08/2016 Allergic rhinitis, unspecified allergic rhinitis trigger, unspecified rhinitis seasonality 05/08/2016 Dysuria 05/14/2016 Dysuria 05/14/2016 Dysuria 05/14/2016 Dermatitis Contact dermatitis and other eczema, due to unspecified cause 05/14/2016 UTI (urinary tract infection), uncomplicated Urinary tract infection, site not specified 05/14/2016 Acute bacterial sinusitis Acute sinusitis, unspecified 06/23/2016 Generalized anxiety disorder 07/03/2016 Foot sprain, left, initial encounter 07/13/2016 Mild ankle sprain, left, initial encounter 07/13/2016 PPD screening test Screening examination for pulmonary tuberculosis 07/21/2016 Encounter for PPD skin test reading 07/23/2016 Generalized anxiety disorder 08/01/2016 Abdominal pain, RUQ (right upper quadrant) Abdominal pain, right upper quadrant 08/29/2016 Nausea Nausea alone 08/29/2016 Cellulitis of umbilicus Cellulitis and abscess of trunk 08/29/2016 Abdominal pain, RUQ (right upper quadrant) Abdominal pain, right upper quadrant 08/30/2016 Nausea Nausea alone 08/30/2016 Generalized abdominal pain Abdominal pain, generalized 09/01/2016 Sprain of left ankle, unspecified ligament, initial encounter 11/01/2016 Foot sprain, left, initial encounter 11/01/2016 Encounter for routine child health examination with abnormal findings Routine or child health check 11/25/2016 Exercise induced bronchospasm 11/25/2016 Irritable bowel syndrome, unspecified type 11/25/2016 Insomnia, persistent Persistent disorder of initiating or maintaining sleep 11/25/2016 Need for hepatitis A immunization Need for prophylactic vaccination and inoculation against viral hepatitis 11/25/2016 Need for HPV vaccine Need for prophylactic vaccination and inoculation against other viral diseases 11/25/2016 Generalized anxiety disorder 11/25/2016 Generalized anxiety disorder 11/29/2016 Acute right lower quadrant pain Abdominal pain, right lower quadrant 12/01/2016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
--- OUTSIDE RECORDS SUMMARY | 2025-01-08 14:28 | XMS_ITS | Encounter Summary ---
Author Organization [employer] [place] [address] Care Team Providers Care Manager Philosophy Name Role Phone Getnry Christian MD Primary Care Provider Encounter Details Date Type Department Care Team (Latest Contact Info) Description 11/30/2024 Results Follow-Up SEP Leonardo [address] [place] [address] Komal Barcenas, AIR BRAKE OPERATOR [address] [place] [address] CBC WITH DIFF, COMPREHENSIVE METABOLIC PANEL, LIPID SCREEN, Additional followed-up results: 3 Social History Tobacco Use Types Packs/Day Years [...] Cornelia Adhikari CCMA documented in this encounter Plan of Treatment Not on file documented as of this encounter Goals Goal Patient Goal Type Associated Problems Recent Progress Patient-Stated? Author Maintain a healthy diet, exercise regularly and maintain an ideal body weight General No Lluvia Patel CCMA documented as of this encounter Visit Diagnoses Not on filedocumented in this encounter Care Teams Manager Philosophy Relationship Specialty Start Date End Date Gentry Christian MD [address] [place] [address] PCP - General 06/13/09 documented as of this encounter
--- OUTSIDE RECORDS SUMMARY | 2025-01-08 14:28 | XMS_ITS | Clinical Summary ---
Author Organization [facility] Address [address] [place] [address] Phone Care Team Providers Care Abstract Writer Name Role Phone Unavailable Primary Care Provider Unavailabl e Social History Tobacco Use Types Packs/Day Years Used Date Smoking Tobacco: Never Assessed Food Insecurities Answer Date Recorded Worried about running out of food Not on file 06/29/2023 Food Bought Not on file 06/29/2023 Housing/Utilities Answer Date Recorded Worried about losing home Not on file 2023 Stayed outside house Not on file 06/29/2023 Unable to get utilities Not on file 06/29/19 24 Interpersonal Safety Answer Date Record ed Feel physically or emotionally unsafe where curr ently live Not on file 06/29/2023 Harm by anyone Not on file 06/29/2023 Emotionally Harmed Not on file 06/29/2023 Transportation Answer Date Recorded Worried about transportation Not on file Utilities Answer Date Recorded Worried about losing home Not on file 2023 Stayed outside house Not on file 08/17/2023 Unable to get utilities Not on file 08/17/19 24 Comments Unknown Sex and Gender Information Value Date Recorded Sex Assigned at Not on file Legal Sex Female 3:40 PM EDT Gender Identity Not on file Sexual Orientation Not on file Plan of Treatment Health Maintenance Due Date Last Done Comments DTap,Tdap,and Td (1 - Tdap) 2012 HPV (1 - 3-dose series) 2016 Meningococcal B (MenB) (1 of 2 - Standard) 2017 Pap Screening 2022 Influenza Vaccine (#1) 2024 RSV Vaccine (60+ or ) (1 - 1-dose 75+ series) 2076 Meningococcal conjugate claude nt 4 (MCV4) Aged Out No longer eligible b ased on patient's age to complete this topic Pneumococcal 0-49 Aged Out No longer eligible based on patient's age to complete this topic RSV Immunization (<20 months) Aged Out No longer eligible based on patient's age to complete this topic
[2025-01-08] MEDS: IBUPROFEN 600 MG TABLET PO (14:36)
--- NOTE | 2025-01-08 15:07 | ED_ITS ---
Discharge Plan Disposition Patient Disposition: Home, Self-Care Condition: Good Prescriptions Prescriptions: New ibuprofen 600 mg tablet 600 mg PO Q8H PRN (Reason: pain) Qty: 15 0RF Referrals Follow up/Referrals: Provider,Referral, [Primary Care Provider, Medical] - See instructions Activity Restrictions/Add. Instructions Additional Instructions/Restrictions: You were seen for a contusion of the foot. Return to the ER if pain or swelling worsens. Follow up with your PCP. Clinical Impressions Clinical Impression: Contusion of foot Instructions Patient Instructions: DI for Contusion Print Language Print Language: Norwegian Discharge ED Provider: Dionne Hadley General Adult HPI General Chief complaint: Extremity Injury, Lower Stated complaint: dropped brick on right foot, swollen Time Seen by Provider: 01/08/25 14:23 Mode of Arrival: Ambulatory Source of Information: Patient Description of Symptoms (Recalled from ER Triage Doc. by RN): patient presents to the ED after dropping a concrete brick on her right foot last night while at home. Patien unable to do any ROM with the right big toe, ROM limitied in otehr toes and ankle. patinet rating pain 8/10, mostly to the touch. History of Present Illness HPI narrative: Patient presents with right foot pain. She reports that she dropped a cinder block on her foot last night. She has an abrasion where she pulled her foot out quickly. Denies any fevers, vomiting. She has taken Tylenol with minimal improvement. She is able to bear weight. complaint: Right foot pain Onset (ago): day(s) (2) Location: right and lower extremity Radiation: non-radiation Severity: mild Consistency: constant Relieving factors: none Exacerbating factors: other (palpation, walking, movement ) Associated symptoms: denies other symptoms Treatments prior to arrival: other (tylenol ) Related Data Previous Rx's ?Medication ?Instructions ?Recorded ibuprofen 600 mg tablet 600 mg PO Q8H PRN pain #15 t abs 01/08/25 Allergies Allergy/AdvReac Type Severity Reaction Status Date / Time cefdinir (From Omnicef) Allergy Severe Rash Verified 08/30/24 10:33 Penicillins Allergy Severe Vomiting Verified 08/30/24 10:33 sulfamethoxazole (From Allergy Severe Other Verified 08/30/24 10:33 Bactrim) trimethoprim (From Bactrim) Allergy Severe Other Verified 08/30/24 10:33 [facility] Disclaimer: The information contained in this section may have been updated after the patient was seen, as this information can be updated by other users. Medical History Depression Anxiety Surgical History History of tonsillectomy History of x2 History of cholecystectomy Family History Other Asthma Diabetes FHx: mental illness Heart attack Thyroid disorder Social History Smoking Status: Never smoker alcohol intake: never substance use type: denies use current occupational status: unemployed Travel in the last 8 weeks?: None Have you lived/traveled outside [place] in past 30 days?: No Contact w/someone who lives/traveled outside [place] past 30 days?: No Exposure to someone with infectious disease in past 14 days?: No Do you have a fever (greater than 100.4 F or 38 C)?: No Have you tested positive for COVID-19?: No Exposed to someone with COVID-19 in past 14 days?: No Do you have a sore throat?: No Do you have a cough?: No Do you have any weakness?: No Do you have any diarrhea?: No Are you experiencing any unusual bleeding?: No Do you have any muscle aches/pain?: No Do you have any abdominal pain?: No Are you experiencing loss of taste or smell?: No ROS Obtained: Yes Systems reviewed as appropriate & no additional complaints except as documented Physical Exam General General appearance: alert and in no apparent distress Head Head exam: atraumatic and normocephalic Eye Eye exam: Present normal appearance and EOMI Chest Chest inspection: Present symmetric chest wall rise Respiratory Respiratory exam: Present normal lung sounds bilaterally; Absent wheezes or stridor Cardiovascular Cardiovascular exam: Present regular rate and normal rhythm; Absent systolic murmur Extremities Exam Extremities exam: Present full ROM and other (N/V intact RLE ) Expanded Lower Extremity Exam Right: Foot/toe exam: Present tenderness (over 1st MTP ) and abrasion (over 1st MTP ) Neurovascular/Tendon exam: Present normal capillary refill and other (limited ROM of 1st digit ); Absent pulse deficit or sensory deficit Neurological Exam Neurological exam: Present alert and oriented X3 Psychiatric Psychiatric exam: Present normal affect and normal mood Skin Skin exam: Present warm, dry and intact Medical Decision Making Medical Records Screening: Per USPSTF and CDC recommendations, given the prevalence of disease in our region, it is our hospital?s policy to screen for HIV and viral Hepatitis for all patients aged 18 and over and those with ongoing risk factors. Kit Inquiry Pt receiving controlled substance: No Vital Signs: 01/08/25 14:13 Temperature 98.2 F Temperature Source Oral Pulse Rate [Left Radial] 99 H Respiratory Rate 20 Blood Pressure [Left Arm] 143/92 H Blood Pressure Mean [Left Arm] 109 Blood Pressure Source [Left Arm] Automatic Cuff Blood Pressure Position [Left Arm] Sitting 02 Sat by Pulse Oximetry 100 Oxygen Delivery Method Room Air Orders (Tests/Meds): ED MEDICATIONS Discontinued Medications Generic Name Dose Route Start Last Admin Trade Name Freq PRN Reason Stop Dose Admin Ibuprofen 600 mg 01/08/25 14:30 01/08/25 14:36 Ibuprofen 600 Mg Tablet PO 01/08/25 14:31 600 mg ONCE ONE Administration ORDERS Category Date Time Status Foot XR right minimum 3 views [XR foot RT min 3V] Stat Exams 01/08/25 14:25 Taken Medical Decision Narrative: In summary patient is a 24-year-old who presents the emergency department for evaluation of right foot pain. Patient is hemodynamically stable upon arrival, afebrile. Tenderness and abrasion to first MTP of right foot on physical exam. Differential diagnosis includes fracture, contusion, abrasion. Initial workup will be conducted with x-ray. Initial inventions include ibuprofen. Initial workup reviewed by me x-ray unremarkable. Upon repeat evaluation patient continues to rest comfortably. Given this appropriate for discharge home with crutches and Perry wrap, instructed to follow-up with PCP for reevaluation later this week. Critical Care Critical Care Time Critical Care Time: No
[2025-01-08 15:15] VITALS: BP 129/84; PULSE 85; RESP 15; TEMP 36.8; O2SAT 99
== END 2025-01-08 15:21 | disposition home or self-care (01) ==
PROVIDERS: Emergency Provider Student in an Organized Health Care Education/Training Program
DX: S90.31XA Contusion of right foot, initial encounter (principal); W20.8XXA Other cause of strike by thrown, projected or falling object, initial encounter
CPT/HCPCS: 73630; 99283